=== PATIENT | male | born 1935 | race Caucasian/White ===

== ENCOUNTER 2023-07-07 10:57 | Outpatient (RCR) | payer MEDICARE, SELFPAY | END 2023-07-07 23:59 | disposition home or self-care (01) | LOC: RST 10:57 | PROVIDERS: ATTENDING PHYSICIAN Internal Medicine | DX: I69.328 Other speech and language deficits following cerebral infarction (principal); Z73.6 Limitation of activities due to disability; I69.351 Hemiplegia and hemiparesis following cerebral infarction affecting right dominant side | CPT/HCPCS: 92523; 97110; 97163; 97167 ==

== ENCOUNTER → 2023-07-08 15:57 | Emergency (ER) | payer MEDICARE, SELFPAY ==
[2023-07-08 16:07] VITALS: BP 188/90
[2023-07-08 16:44] LABS: % Basophils 1.2 % (0-2); % Eosinophils 6.2 % (0-6); % Immature Granulocytes 0.2 % (0-0.5); % Lymphocytes 23.3 % (20.5-51.1); % Monocytes 9.1 % (1.7-9.3); Absolute Basophils 0.1 10^3/uL (0-0.2); Absolute Eosinophils 0.6 10^3/uL (0-0.7); Absolute Lymphocytes 2.1 10^3/uL (1.2-3.4); Absolute Monocytes 0.8 10^3/uL (0.1-0.6); Absolute Neutrophils 5.4 10^3/uL (1.4-6.5); Hematocrit 35.8 % (39.0-52.0); Hemoglobin 12.1 g/dL (13.0-18.0); Mean Corp Hgb Conc. 33.8 g/dL (33.0-37.0); Mean Corpuscular Hgb 31.5 pg (27.0-31.0); Mean Corpuscular Volume 93.2 fL (80.0-94.0); Mean Platelet Volume 10.7 fL (7.4-10.4); Nucleated Red Blood Cells % 0 % (-); Platelet Count 210 10^3/uL (130-400); Red Blood Cell Count 3.84 10^6/uL (4.70-6.10); Red Cell Dist. Width 13.1 % (11.5-14.5)
[2023-07-08 16:58] LABS: ALT (SGPT) 10 U/L (0-50); AST (SGOT) 18 U/L (17-59); Albumin 3.6 g/dl (3.5-5.0); Alkaline Phosphatase 82 U/L (38-126); Blood Urea Nitrogen 56 mg/dl (9-20); Calcium 10.8 mg/dl (8.4-10.2); Carbon Dioxide 22 mmol/L (22-30); Chloride 105 mmol/L (98-107); Glucose 84 mg/dl (70-99); Potassium 3.8 mmol/L (3.5-5.1); Sodium 139 mmol/L (135-145); Total Bilirubin 0.7 mg/dl (0.2-1.3); Total Protein 6.1 g/dl (6.3-8.2); eGFR 17.93
[2023-07-08 17:25] VITALS: BP 142/77
--- NOTE | 2023-07-08 17:34 | ED.GENMED ---
History of Present Illness
<Heather Demarco PA-C - Last Filed: 07/08/23 19:53>
General
Chief Complaint: Swelling
Source: patient
Exam Limitations: none
Time Seen by Provider: 07/08/23 17:17
Nursing documentation reviewed up to this point in time: agreed with
Travel History
Have you had any contact with someone who has COVID-19?: No
Do you have any symptoms of coronavirus? Fever > 100 degrees, chills, cough, shortness of breath, sore throat, loss of taste or smell, muscle aches, or headache?: No
History of Present Illness
History of Present Illness:
This is a 88-year-old male with a past medical history of stroke, hypertension, hyperlipidemia who is presenting today to the emergency department with a right neck swelling for the past 9 days. Patient states that his first noticed the
swelling when looking at him, and at that time he had no discomfort. As the days progressed, the area of swelling became larger. He denies any redness, itching to the area. He does report some discomfort when he turns his head. He reported to
primary care provider who thought it might be related to lymphadenopathy and thought it should resolve within a few days likely due to a viral infection. As the swelling progressed and the mass got larger, he reported to his family doctor
petitioner again he was concerned about possible blood clot or vascular issue and they sent him to the emergency department today for ultrasound to rule out. Per his PCPs instructions, he started taking aspirin. He never had anything like this
before. He denies fevers or chills, changes to his vision, chest pain, shortness of breath, abdominal pain. He denies neck pain.
Past History
<Heather Demarco PA-C - Last Filed: 07/08/23 19:53>
Past History
ED Past Medical History: HTN, Hypercholesterolemia and Other (Pilonidal cyst)
ED Past Surgical History: Orthopedic (Right rotator cuff, bilateral carpal tunnel)
Social History
Tobacco: Former smoker
Alcohol: None
Drug: None
Personal:
Living: with family
Review of Systems
<YUSRA Gomez Last Filed: 07/08/23 19:53>
Review of Systems
All Other Systems: ROS reviewed and negative except as documented in HPI and ROS
Phy Exam
<YUSRA Gomez Last Filed: 07/08/23 19:53>
Physical Exam
Physical Exam:
General: Patient appears well is in no acute distress
Skin: There are 2 soft mobile masses on the right side of the patient's neck, with no surrounding erythema.
Cardiac: Regular rate and rhythm
Pulm: Normal respiratory effort, no wheezes rales or rhonchi
Musculoskeletal: Patient has full range of motion of cervical spine is no tenderness to palpation of the cervical spine or paraspinal muscles. Patient has no tenderness palpation of the trapezius muscle. Patient has no tenderness to palpation with
movement of the soft mass.
Scores
<YUSRA Gomez Last Filed: 07/08/23 19:53>
Heart Failure Risk
Heart Failure Risk Score: Not Applicable
Course
<YUSRA Gomez Last Filed: 07/08/23 19:53>
Orders/Labs/Results
Orders:
Orders
07/08/23 16:20
US Arms, Right [US Periph Venous UPPER Ext RT] Urgent
Comment: upper ext, attn jugular
Reason For Exam: neck swelling
07/08/23 16:28
CBC/With Diff [Complete Blood Count/With Diff] Urgent
Comprehensive Metabolic Panel Urgent
Abnormal Lab Results
07/08/23
16:28
RBC 3.84 L 10^6/uL
(4.70-6.10)
Hgb 12.1 L g/dL
(13.0-18.0)
Hct 35.8 L %
(39.0-52.0)
MCH 31.5 H pg
(27.0-31.0)
MPV 10.7 H fL
(7.4-10.4)
Absolute Monos (auto) 0.8 H 10^3/uL
(0.1-0.6)
Eosinophils % 6.2 H %
(0-6)
BUN 56 H mg/dl
(9-20)
Creatinine 3.2 H mg/dL
(0.7-1.3)
Calcium 10.8 H mg/dl
(8.4-10.2)
Total Protein 6.1 L g/dl
(6.3-8.2)
07/08/23 16:28
07/08/23 16:28
Vital Signs
Initial and Last Documented VS:
Initial Vital Signs
Temp Pulse Resp BP Pulse Ox
98 F 58 16 188/90 92
07/08/23 16:07 07/08/23 16:07 07/08/23 16:07 07/08/23 16:07 07/08/23 16:07
Last Documented Vital Signs
Temp Pulse Resp BP Pulse Ox
98 F 59 16 142/77 99
07/08/23 16:07 07/08/23 17:25 07/08/23 17:25 07/08/23 17:25 07/08/23 17:25
Hilarylt;Bernabe Maciel, DO - Last Filed: 07/08/23 18:36>
Orders/Labs/Results
Orders:
Orders
07/08/23 16:20
US Arms, Right [US Periph Venous UPPER Ext RT] Urgent
Comment: upper ext, attn jugular
Reason For Exam: neck swelling
07/08/23 16:28
CBC/With Diff [Complete Blood Count/With Diff] Urgent
Comprehensive Metabolic Panel Urgent
Abnormal Lab Results
07/08/23
16:28
RBC 3.84 L 10^6/uL
(4.70-6.10)
Hgb 12.1 L g/dL
(13.0-18.0)
Hct 35.8 L %
(39.0-52.0)
MCH 31.5 H pg
(27.0-31.0)
MPV 10.7 H fL
(7.4-10.4)
Absolute Monos (auto) 0.8 H 10^3/uL
(0.1-0.6)
Eosinophils % 6.2 H %
(0-6)
BUN 56 H mg/dl
(9-20)
Creatinine 3.2 H mg/dL
(0.7-1.3)
Calcium 10.8 H mg/dl
(8.4-10.2)
Total Protein 6.1 L g/dl
(6.3-8.2)
07/08/23 16:28
07/08/23 16:28
Vital Signs
Initial and Last Documented VS:
Initial Vital Signs
Temp Pulse Resp BP Pulse Ox
98 F 58 16 188/90 92
07/08/23 16:07 07/08/23 16:07 07/08/23 16:07 07/08/23 16:07 07/08/23 16:07
Last Documented Vital Signs
Temp Pulse Resp BP Pulse Ox
98 F 59 16 142/77 99
07/08/23 16:07 07/08/23 17:25 07/08/23 17:25 07/08/23 17:25 07/08/23 17:25
<Heather Demarco PA-C - Last Filed: 07/08/23 19:53>
MDM/Problems Addressed
Differential Diagnosis Includes:
Differentials include: Lymphadenitis, lymphoma, brachial cyst, vascular malformation
MDM/Problems Addressed:
neck swelling
Chronic conditions affecting care: HTN and Other (hyperlipidemia, stroke, BPH)
Acute Exacerbation and/or Progression of Chronic Illness:
n/a
<Heather Demarco PA-C - Last Filed: 07/08/23 19:53>
*Pulse Oximetry
Patient hypoxic: no
*Critical Care Note
Total Time (30-74mins, 75-104mins- exclusive of procedures): Not Applicable
Data Reviewed
Review of Other/Old Records Reveals: Records (Reviewed previous records, reviewed discharge summary from patient's TIA in May 2023)
Prescriptions/Medications Considered But Not Given:
n/a
Further Testing Considered But Not Given:
Considered CT head and neck with IV contrast however patient has stage IV kidney disease and risk of acute renal failure outweighs the urgency of the test
<YUSRA Gomez Last Filed: 07/08/23 19:53>
Patient Management
Escalation/DeEscalation of care consider admission/obs:
This is a 88-year-old male with past medical history of stroke, hypertension, hyperlipidemia who presents today with right neck swelling for the past 9 days. They first noted a small bump earlier in the week and it progressively became larger. His
PCP is concerned about a possible blood clot who sent him to the emergency department to obtain ultrasound. His ultrasound not show any evidence of clot in the right upper extremity but did reveal several hypoechoic masses in the right neck
probably consistent with abnormal lymph nodes. He denies recent weight loss, fevers or chills, and his CBC did not show leukocytosis. We recommended patient to follow-up with their PCP and ENT. We sent patient home with Keflex for possible
lymphangitis.
ED Attending Note
<Heather Demarco PA-C - Last Filed: 07/08/23 19:53>
-
Portions of this chart may have been created with voice recognition software.� Occasional wrong word or��sound alike� substitutions may have occurred due to the inherent limitations of voice recognition software.
<Bernabe Maciel, DO - Last Filed: 07/08/23 18:36>
ED Attending Note
Patient seen and examined by attending physician: Yes
I performed the substantive portion of visit, reviewed & personally made and approve the management plan that is documented in note by myself or VICTOR MANUEL.: Yes
ED Attending Note:
Seen with PA examined independently right neck swelling there is like a 2 cm nontender increasing in size mass above his jugular vein, ultrasound noted no recent URI no fever no weight loss been on aspirin
Will check CT scan
Labs are noted creatinine 3.2 do not believe the risks versus benefits of support CT scanning not sure noncontrast scan would change any thing
Discharge Plan
Departure
Patient Disposition: Home (Routine Discharge)
Date of Disposition: 07/08/23
Time of Disposition: 18:38
Patient with high blood pressure during this ER visit?: Yes
Condition: Good
Discharge Problem:
Neck swelling
Instructions: BLOOD PRESSURE
Prescriptions:
New
cephalexin 500 mg capsule
500 mg PO Q6H 7 Days Qty: 28 0RF
No Action
simvastatin 20 MG tablet
20 mg PO DAILY
tamsulosin 0.4 mg Capsule
0.8 mg PO HS
calcitriol 0.25 mcg Capsule
0.5 mcg PO DAILY
Patient Comments:
05/17/23 prescription is written for take 3 times a week but Dr. Leroy changed patient's medication frequency to take once daily everyday instead.
amlodipine 5 mg tablet
5 mg PO DAILY 30 Days Qty: 30 0RF
aspirin 325 mg Tablet
650 mg PO BID
Activity Restrictions/Additional Instructions:
Please antibiotic called cephalexin to your pharmacy. Please take 1 capsule every 6 hours for 7 days.
Please call your ENT tomorrow morning to make an appointment for follow-up.
Please return to the emergency department should you experience fevers or chills, night sweats, abdominal pain, lightheadedness, dizziness, shortness of breath, chest pain, or other concerning signs or symptoms.
Please follow-up with your primary care provider soon as possible.
Interventions
Interventions:
*Risk Screen - Suicide Last Done: 07/08/23 18:58
*General Assessment Last Done: 07/08/23 17:25
*Neglect/Abuse Screening Last Done: 07/08/23 17:25
ED- Fall Risk Assessment Last Done: 07/08/23 17:25
*ED COVID-19 Vaccine History Last Done: 07/08/23 17:25
*Nursing Disposition Last Done: 07/08/23 18:58
ED- Cardiac Assessment Last Done: 07/08/23 17:25
ED- Pulmonary Assessment Last Done: 07/08/23 17:25
ED-Skin Assessment Last Done: 07/08/23 17:25
== END | disposition home or self-care (01) ==
LOC: EMR 15:57
PROVIDERS: EMERGENCY PHYSICIAN Emergency Medicine
DX: R22.1 Localized swelling, mass and lump, neck (principal); I10 Essential (primary) hypertension; E78.00 Pure hypercholesterolemia, unspecified; Z86.73 Personal history of transient ischemic attack (TIA), and cerebral infarction without residual deficits
CPT/HCPCS: 99282; 80053; 85025; 93971

== ENCOUNTER → 2023-07-15 14:21 | Outpatient (REF) | payer MEDICARE, SELFPAY | LOC: RAD 14:21 | PROVIDERS: ATTENDING PHYSICIAN Physician Assistant | DX: I49.9 Cardiac arrhythmia, unspecified (principal); I88.9 Nonspecific lymphadenitis, unspecified; D64.9 Anemia, unspecified; E83.52 Hypercalcemia | CPT/HCPCS: 71046 ==

== ENCOUNTER → 2023-07-19 12:09 | Outpatient (REF) | payer MEDICARE, SELFPAY ==
[2023-07-19 13:22] LABS: % Basophils 1.3 % (0-2); % Immature Granulocytes 0.2 % (0-0.5); % Monocytes 7.6 % (1.7-9.3); % Neutrophils 66.9 % (42.2-75.2); Absolute Basophils 0.1 10^3/uL (0-0.2); Absolute Eosinophils 0.5 10^3/uL (0-0.7); Absolute Lymphocytes 1.6 10^3/uL (1.2-3.4); Absolute Monocytes 0.7 10^3/uL (0.1-0.6); Absolute Neutrophils 5.8 10^3/uL (1.4-6.5); Hematocrit 36.4 % (39.0-52.0); Hemoglobin 12.5 g/dL (13.0-18.0); Mean Corp Hgb Conc. 34.3 g/dL (33.0-37.0); Mean Corpuscular Hgb 31.9 pg (27.0-31.0); Mean Corpuscular Volume 92.9 fL (80.0-94.0); Nucleated Red Blood Cells % 0 % (-); Platelet Count 199 10^3/uL (130-400); Red Blood Cell Count 3.92 10^6/uL (4.70-6.10); Red Cell Dist. Width 13.2 % (11.5-14.5); White Blood Cell Count 8.7 10^3/uL (4.8-10.8)
[2023-07-19 13:57] LABS: ALT (SGPT) 11 U/L (0-50); AST (SGOT) 20 U/L (17-59); Albumin 3.6 g/dl (3.5-5.0); Alkaline Phosphatase 71 U/L (38-126); Blood Urea Nitrogen 49 mg/dl (9-20); Calcium 10.9 mg/dl (8.4-10.2); Carbon Dioxide 22 mmol/L (22-30); Chloride 103 mmol/L (98-107); Glucose 86 mg/dl (70-99); Potassium 4.2 mmol/L (3.5-5.1); Sodium 137 mmol/L (135-145); Total Bilirubin 0.7 mg/dl (0.2-1.3); Total Protein 6.1 g/dl (6.3-8.2); eGFR 19.37
== END ==
LOC: REG 12:09
PROVIDERS: ATTENDING PHYSICIAN Physician Assistant
DX: I49.9 Cardiac arrhythmia, unspecified (principal); I88.9 Nonspecific lymphadenitis, unspecified; D64.9 Anemia, unspecified; E83.52 Hypercalcemia
CPT/HCPCS: 36415; 80053; 85025

== ENCOUNTER 2023-07-25 15:19 | Outpatient (RCR) | payer MEDICARE, SELFPAY | END 2023-07-25 23:59 | disposition home or self-care (01) | LOC: RST 15:19 | PROVIDERS: ATTENDING PHYSICIAN Internal Medicine | DX: I69.328 Other speech and language deficits following cerebral infarction (principal); I69.318 Other symptoms and signs involving cognitive functions following cerebral infarction; Z73.6 Limitation of activities due to disability | CPT/HCPCS: 92507; 96125; 97110; 97112; 97129; 97130; 97530; 97535 ==

== ENCOUNTER 2023-07-25 23:15 | Inpatient (IN) | payer MEDICARE, SELFPAY ==
[2023-07-25 16:52] VITALS: BP 160/98
[2023-07-25 19:52] VITALS: BMI 22.3
[2023-07-25 19:53] VITALS: BP 158/72
[2023-07-25] MEDS: TYLENOL 650 MG PO (19:59)
[2023-07-25] MEDS: NSS 1000 IV (19:59)
[2023-07-25 20:00] VITALS: BP 147/95
[2023-07-25 20:05] LABS: % Basophils 0.4 % (0-2); % Eosinophils 0.4 % (0-6); % Immature Granulocytes 0.4 % (0-0.5); % Lymphocytes 4.3 % (20.5-51.1); % Neutrophils 89.5 % (42.2-75.2); Absolute Basophils 0.1 10^3/uL (0-0.2); Absolute Eosinophils 0.1 10^3/uL (0-0.7); Absolute Immature Granulocytes 0.1 10^3/uL (0-0.05); Absolute Lymphocytes 0.6 10^3/uL (1.2-3.4); Absolute Monocytes 0.7 10^3/uL (0.1-0.6); Absolute Neutrophils 12.3 10^3/uL (1.4-6.5); Hematocrit 35.2 % (39.0-52.0); Hemoglobin 12.3 g/dL (13.0-18.0); Mean Corp Hgb Conc. 34.9 g/dL (33.0-37.0); Mean Corpuscular Hgb 31.6 pg (27.0-31.0); Mean Corpuscular Volume 90.5 fL (80.0-94.0); Mean Platelet Volume 10.3 fL (7.4-10.4); Nucleated Red Blood Cells % 0 % (-); Platelet Count 175 10^3/uL (130-400); Red Blood Cell Count 3.89 10^6/uL (4.70-6.10); Red Cell Dist. Width 13.2 % (11.5-14.5); Urine Albumin 1+ (Neg - Trace); Urine Bilirubin Negative (Negative); Urine Character Clear (Clear); Urine Color Yellow; Urine Glucose Negative (Negative); Urine Ketone Negative (Negative); Urine Leukocyte 2+ (Negative); Urine Nitrite Negative (Negative); Urine Occult Blood 1+ (Negative); Urine Specific Gravity 1.015 (<1.030); Urine Urobilinogen Negative (Neg - 1+); White Blood Cell Count 13.7 10^3/uL (4.8-10.8)
[2023-07-25 20:17] LABS: APTT 26.5 Sec (23.4-35.0)
[2023-07-25 20:20] LABS: Urine Squamous Cell 0-2 /LPF (Few); Urine White Cell 80-90 /HPF (0-5)
[2023-07-25 20:43] LABS: ALT (SGPT) 13 U/L (0-50); AST (SGOT) 20 U/L (17-59); Albumin 3.8 g/dl (3.5-5.0); Alkaline Phosphatase 63 U/L (38-126); Blood Urea Nitrogen 52 mg/dl (9-20); Calcium 10.9 mg/dl (8.4-10.2); Carbon Dioxide 23 mmol/L (22-30); Chloride 103 mmol/L (98-107); Estimated Creatinine Clearance 16 ml/min; Glucose 106 mg/dl (70-99); Potassium 4.3 mmol/L (3.5-5.1); Sodium 138 mmol/L (135-145); Total Protein 6.3 g/dl (6.3-8.2); eGFR 21.04
[2023-07-25 21:00] VITALS: BP 149/67
--- NOTE | 2023-07-25 21:57 | ED.CVA ---
History of Present Illness
General
Chief Complaint: CVA/TIA Symptoms
Source: patient
Time Seen by Provider: 07/25/23 19:22
Onset of Stroke Symptoms
Onset of symptoms known: No
Time pt last seen normal is known: No
Travel History
Have you had any contact with someone who has COVID-19?: No
Do you have any symptoms of coronavirus? Fever > 100 degrees, chills, cough, shortness of breath, sore throat, loss of taste or smell, muscle aches, or headache?: No
History of Present Illness
History of Present Illness:
88-year-old male brought to the emergency room after speech therapist noted the patient to have more slurring his speech than normal. Patient also seems generally weak. No focality to the weakness but just seems generally weaker than normal. Also
more confused than baseline. Patient found to be febrile here.
Past History
Past History
ED Past Medical History: HTN, Hypercholesterolemia and Other (Pilonidal cyst)
ED Past Surgical History: Orthopedic (Right rotator cuff, bilateral carpal tunnel)
Social History
Tobacco: Former smoker
Alcohol: None
Drug: None
Personal:
Living: with family
Phy Exam
Physical Exam
Physical Exam:
General: Awake, Alert, Oriented X2. Some expressive aphasia. Appears stated age
Vitals: unremarkable
Head: Atraumatic
Eyes: Pupils equal, EOMI
Throat: Airway intact, no exudates, dry mucosa
Neck: Trachea midline
Lungs: Clear and equal b/l
Heart: Regular rate, no murmurs
Abd: Soft, Nontender, No pulsatile mass
Neuro: Grossly nonfocal
Skin: Warm, dry, no rash
Extremities: pulses equal b/l, no edema
Course
Orders/Labs/Results
Orders:
Orders
07/25/23 19:52
CR Chest - 2 Views Urgent
Comment:
Reason For Exam: fever
07/25/23 19:53
0.9% Sodium Chloride 1000 ml [Nss] 1,000 ml IV BOLUS
Acetaminophen [Tylenol] 650 mg PO NOW STA
07/25/23 19:54
Complete Blood Count/With Diff Urgent
Comprehensive Metabolic Panel Urgent
Lactic Acid Q4H
Comment: CANCEL 2nd LACTIC ACID IF 1st LACTIC ACID IS LESS THAN 2
Protime/PTT Urgent
Urinalysis Reflex To Culture Urgent
Date Specimen was Collected: 07/25/23
Time Specimen was Collected: 19:36
Urine Microscopic Reflex Cult Urgent
Blood Culture Q30M
AUBREY Source: Blood/Venous
Specimen Description:
Blood Culture Q30M
AUBREY Source: Blood/Venous
Specimen Description:
Urine Culture Urgent
AUBREY Source: U
Specimen Description:
Date Specimen was Collected: 07/25/23
Time Specimen was Collected: 19:36
07/25/23 21:56
CefTRIAXone [Rocephin] 1,000 mg IV NOW STA
07/25/23 22:43
Admit/Transfer Patient As Directed
Co-Sign Provider:
Level of Care: Inpatient admission
Assign to:: Medical/Surgical
Physician / Group: willy villareal
Diagnosis: UTI
Reason for Hospitalization: UTI
Expected length of stay greater than two midnights?: Yes
ELOS- Estimated Length of Stay in days: 3
I certify the patient meets the requirements for IP care: Yes
Code Status As Directed
Resuscitation Status: Full Code
Abnormal Lab Results
07/25/23
19:54
WBC 13.7 H 10^3/uL
(4.8-10.8)
RBC 3.89 L 10^6/uL
(4.70-6.10)
Hgb 12.3 L g/dL
(13.0-18.0)
Hct 35.2 L %
(39.0-52.0)
MCH 31.6 H pg
(27.0-31.0)
Abs Immat Gran (auto) 0.1 H 10^3/uL
(0-0.05)
Absolute Neuts (auto) 12.3 H 10^3/uL
(1.4-6.5)
Absolute Lymphs (auto) 0.6 L 10^3/uL
(1.2-3.4)
Absolute Monos (auto) 0.7 H 10^3/uL
(0.1-0.6)
Neutrophils % 89.5 H %
(42.2-75.2)
Lymphocytes % 4.3 L %
(20.5-51.1)
BUN 52 H mg/dl
(9-20)
Creatinine 2.8 H mg/dL
(0.7-1.3)
Glucose 106 H mg/dl
(70-99)
Calcium 10.9 H mg/dl
(8.4-10.2)
Ur Occult Blood Reflex 1+ A
(Negative)
Leukocyte Esterase Rfl 2+ A
(Negative)
Urine RBC 7-10 A /HPF
(0-2)
Urine WBC (Reflex) 80-90 A /HPF
(0-5)
Urine Albumin (Reflex) 1+ A
(Neg - Trace)
07/25/23 19:54
07/25/23 19:54
Vital Signs
Initial and Last Documented VS:
Initial Vital Signs
Temp Pulse Resp BP Pulse Ox
98.1 F 77 18 160/98 94
07/25/23 16:52 07/25/23 16:52 07/25/23 16:52 07/25/23 16:52 07/25/23 16:52
Last Documented Vital Signs
Temp Pulse Resp BP Pulse Ox
101.5 F H 70 16 122/67 96
07/25/23 20:02 07/25/23 22:00 07/25/23 22:00 07/25/23 22:00 07/25/23 21:30
MDM/Problems Addressed
Differential Diagnosis Includes:
UTI, dehydration, pneumonia, viral illness
MDM/Problems Addressed:
Urinalysis consistent with urinary tract infection. Patient too weak for discharge. Will hospitalize for IV antibiotics
*Radiology
Radiology exam reviewed: preliminary read by ED provider (Pressure the patient's chest x-ray and see no acute abnormalities) and radiology read reviewed
*Pulse Oximetry
Patient hypoxic: no
*Critical Care Note
Total Time (30-74mins, 75-104mins- exclusive of procedures): Not Applicable
Patient Management
Social determinants of health affecting care: Living situation
Discussion with other providers: Hospitalist
Escalation/DeEscalation of care consider admission/obs:
Discussed possible discharge with the patient's . However he is quite weak and still not at his baseline mental status
ED Attending Note
-
Portions of this chart may have been created with voice recognition software.� Occasional wrong word or��sound alike� substitutions may have occurred due to the inherent limitations of voice recognition software.
Discharge Plan
Departure
Patient Disposition: Admit
Date of Disposition: 07/25/23
Time of Disposition: 21:57
Admit to: Med/Surg
Presentation/result/management discussed w/ accepting MD/DO: Hospitalist
Condition: Fair
Discharge Problem:
Altered mental status, Acute UTI
Interventions
Interventions:
*Risk Screen - Suicide Last Done: 07/25/23 16:52
*General Assessment Last Done: 07/25/23 16:52
*Neglect/Abuse Screening Last Done: 07/25/23 16:52
*ED COVID-19 Vaccine History Last Done: 07/25/23 16:52
ED- Pulmonary Assessment Last Done: 07/25/23 20:02
ED- Neurological Assessment Last Done: 07/25/23 20:02
ED- Cardiac Assessment Last Done: 07/25/23 20:02
ED Swallowing Screen Last Done: 07/25/23 20:09
[2023-07-25 22:00] VITALS: BP 122/67
[2023-07-25] MEDS: ROCEPHIN 1000 MG IV (22:03)
--- NOTE | 2023-07-25 22:23 | HPS.HSE ---
Addendum entered and electronically signed by Scarlet Quiñones DO 07/26/23 01:10:
The patient is seen and examined, and discussed with Monet. I have reviewed her history and physical, assessment, and plan of care as per below.
He is comfortable, NAD, VSS, AF at the time of this examination
Neck-3 large lymph nodes cervical chain on right side that are round, freely movable and tender
CV RRR, no m/r/g
Lungs CTA b/l n o w/r/r
Assessment and POC as per below with addition of :
Neck lymph nodes are being worked up OP by PCP and ENT specialist, unknown etiology- this is a planned biopsy of neck lymph nodes scheduled OP this .
Original Note:
Family Physician
-
Family Physician: Lane Purdy
Chief Complaint
-
fever
History of Present Illness
88-year-old with past medical history for hypertension, hyperlipidemia, pilonidal cyst, CVA, BPH presented to us with fever, chills, shivering shakes. Patient went to physical therapy today to complete the session due to chills and generalized
weakness. Stated urinary urgency and frequency. Patient was dizzy yesterday at [employer]. Denied any hematuria. He was noted confused. Denied headache. Patient denied chest pain or short of breath. Patient denied abdominal pain, nausea,
vomiting, diarrhea. Patient denied dysuria hematuria
WBC elevated at 13.5, positive UA. Initiated on ceftriaxone. Management
Medical History
Past Medical History
Past Medical History: Reports Other
Additional Past Medical History:
CVA
Hypertension
Hyperlipidemia
Bilateral carpal tunnel
Past Surgical History: Reports Other
Additional Past Surgical History:
Rotator cuff repair
Right hip replacement
Bilateral shoulder surgery
Rotator cuff repair
Social History
Tobacco: Former Smoker
Alcohol: Occasional
Drug: None
Personal:
Living: With Family
Family History
Family History: Not pertinent
Allergies / Home Medications
Allergies reflects when Allergies were last updated in [employer].
Home Medications with original date entered in [employer]
Allergy/Medication List:
Allergies
Allergy/AdvReac Type Severity Reaction Status Date / Time
bees Allergy Anaphylaxis Uncoded 07/08/23 16:06
Home Medications
simvastatin 20 mg tablet 20 mg PO DAILY High Cholesterol 03/08/12
calcitriol 0.25 mcg capsule 0.5 mcg PO DAILY Supplement 05/17/23
tamsulosin 0.4 mg capsule 0.8 mg PO Q48H Urinary Issue 05/17/23
amlodipine 5 mg tablet 5 mg PO DAILY 30 days #30 tabs 05/18/23
cephalexin 500 mg capsule 500 mg PO Q6H 7 days #28 caps 07/08/23
aspirin 81 mg chewable tablet 81 mg PO DAILY 07/25/23
Review of Systems
-
Constitutional: Reports No Symptoms, Fever and Chills
EENT: Reports No Symptoms
Respiratory: Reports No Symptoms
Cardiac: Reports No Symptoms
Abdomen/GI: Reports No Symptoms
: Reports Urgency
Musculoskeletal: Reports No Symptoms
Skin: Reports No Symptoms
Neurological: Reports Dizzy and Weakness
Endocrine: Reports No Symptoms
Hematologic/Lymphatic: Reports No Symptoms
Psych: Reports No Symptoms
Physical Exam
Vital Signs
Vital Signs
Temp Pulse Resp BP Pulse Ox
101.5 F H 70 16 122/67 96
07/25/23 20:02 07/25/23 22:00 07/25/23 22:00 07/25/23 22:00 07/25/23 21:30
Physical Exam
General: Well Developed, Well Nourished and No Apparent Distress
HEENT: NormoCephalic, Moist mucous membranes and Atraumatic
Respiratory: Clear
Cardiac: S1/S2 and Regular Rhythm; No Murmur or Rub
GI: Soft, Non Tender, Non Distended and Normal Bowel Sounds; No Organomegaly
Rectal: Deferred by Provider
Musculoskeletal: No Clubbing, No Cyanosis and No Edema
Skin: No Rash
Neuro: AO x 3 and Nonfocal/grossly intact
Psych: Calm
Laboratory Results
-
07/25/23 19:54
07/25/23:
Laboratory Results
PT 14.0 Sec (11.4-14.6) 07/25/23:
INR 1.10 07/25/23:
APTT 26.5 Sec (23.4-35.0) 07/25/23:
Lactic Acid 1.0 mmol/L (0.7-2.0) 07/25/23:
Total Bilirubin 1.0 mg/dl (0.2-1.3) 07/25/23:
AST 20 U/L (17-59) 07/25/23:54
ALT 13 U/L (0-50) 07/25/23:54
Alkaline Phosphatase 63 U/L (38-126) 07/25/23:54
Data Reviewed
-
Diagnostic Radiology: Report Reviewed by me
Lab Data: Labs Reviewed by me
Impression/Plan
-
#metabolic encephalopathy likely from urinary tract infection
-sepsis as evident by wbc 13.7, temp 101.5
-positive UA
-chest x ray with No acute pulmonary process.Marked elevation of the left hemidiaphragm, unchanged.
-blood and urine culture sent from ER
-IV ceftriaxone
-Tylenol as needed for fever
#chronic kidney disease stage 4
-cr 2.8
-continue to trend
-Calcitrol continued
#recent CVA
-Aspirin continued
#Essential Hypertension
-Norvasc continued
Hyperlipidemia
-Continue simvastatin
BPH
-Continue Flomax
#DVT proph: Lovenox
Code Status: Full Code
[2023-07-25 23:00] VITALS: BP 126/54
[2023-07-26] VITALS: BP 122/63
[2023-07-26 00:30] VITALS: BP 163/84; BMI 21.3
[2023-07-26] MEDS: FLOMAX 0.800000000000000044 MG PO (01:04)
--- NOTE | 2023-07-26 01:08 | PTCARENOTE ---
Pt pulled over from bed to stretcher. Pt states he is independent at home. Pt aaox3 and no c/o pain. Pt had some confusion in ED. Placed on bed alarm. Pt oriented to room, call javier within reach, and will continue plan of care.
[2023-07-26 06:00] VITALS: BMI 21.3
[2023-07-26 06:18] LABS: Hematocrit 32.6 % (39.0-52.0); Hemoglobin 10.9 g/dL (13.0-18.0); Mean Corp Hgb Conc. 33.4 g/dL (33.0-37.0); Mean Corpuscular Hgb 31.6 pg (27.0-31.0); Mean Corpuscular Volume 94.5 fL (80.0-94.0); Mean Platelet Volume 11.2 fL (7.4-10.4); Platelet Count 164 10^3/uL (130-400); Red Blood Cell Count 3.45 10^6/uL (4.70-6.10); Red Cell Dist. Width 13.2 % (11.5-14.5); White Blood Cell Count 12.8 10^3/uL (4.8-10.8)
[2023-07-26 06:36] LABS: Blood Urea Nitrogen 48 mg/dl (9-20); Calcium 10.3 mg/dl (8.4-10.2); Carbon Dioxide 25 mmol/L (22-30); Chloride 105 mmol/L (98-107); Estimated Creatinine Clearance 15 ml/min; Glucose 95 mg/dl (70-99); Sodium 139 mmol/L (135-145); eGFR 21.04
[2023-07-26 06:41] LABS: Potassium 3.8 mmol/L (3.5-5.1)
[2023-07-26 07:00] VITALS: BP 152/70
[2023-07-26] MEDS: LIPITOR 10 MG PO (08:24)
[2023-07-26] MEDS: ROCALTROL 0.5 MCG PO (08:24)
[2023-07-26] MEDS: NORVASC 5 MG PO (08:24)
[2023-07-26] MEDS: LOW STRENGTH ASPIRIN 81 MG PO (08:24)
--- NOTE | 2023-07-26 12:32 | W.PN.HOSP.TC ---
Today's Communication/Plan
-
await cultures
cont ABX
Assessment / Plan
Assessment / Plan
Pt is an 88 year old male
metabolic encephalopathy likely from sepsis from urinary tract infection--resolved--UA positive--await cultures--cont rocephin
chronic kidney disease stage 4--cr 2.8 baseline--continue to trend--Calcitrol continued
recent CVA--Aspirin continued--PT/OT/speech
Essential Hypertension--Norvasc continued
Hyperlipidemia--Continue simvastatin
BPH--Continue Flomax
DVT proph: Lovenox
Code Status: Full Code
fell today--consult PT/OT--does not appear to be hurt
Anticipated Discharge: 24 - 48 hours
Subjective/Interval History
-
Date of Service: July 26, 2023
pt fell earlier today--was not injured
Objective Data
-
Labs:
Laboratory Results
07/26/23
05:31
WBC 12.8 H
Hgb 10.9 L
Hct 32.6 L
Plt Count 164
Sodium 139
Potassium 3.8
Chloride 105
Carbon Dioxide 25
BUN 48 H
Creatinine 2.8 H
Glucose 95
Calcium 10.3 H
Vital Signs:
max temp for 24 hours
07/25/23
20:02
Temp 101.5 F H
Vital Signs
Temp Pulse Resp BP Pulse Ox
98.9 F 67 16 152/70 98
07/26/23 07:00 07/26/23 08:24 07/26/23 07:00 07/26/23 08:24 07/26/23 09:27
I&O
07/25/23 07/26/23 07/27/23
06:59 06:59 06:59
Intake Total 120 / 120
Output Total 625 / 625
Balance -505 / -505
Review of Systems
-
All other systems: Reviewed and negative
Physical Exam
-
General: Other (elderly frail male in NAD)
HEENT: Normocephalic and Atraumatic
Respiratory: Clear to Auscultation; Negative Wheezes or Rhonchi
Cardiac: Regular Rhythm and S1/S2; Negative Murmur
GI: Soft, Nontender, Nondistended and Normal Bowel Sounds
Rectal: Other (sacral area with small opening at top of buttock crease )
Musculoskeletal: No Clubbing, No Cyanosis and No Edema
Skin: Warm
Neuro: Awake
Psych: Calm
--- NOTE | 2023-07-26 14:10 | PTOTSP ---
Dysphagia Evaluation
Patient presents with mild oral stage differences (i.e., prolonged chewing in setting of loose dentures, reduced bolus cohesion, mildly reduced oral clearance improved with a liquid wash) and no signs/symptoms concerning for pharyngeal dysphagia or
aspiration.
He is known to department from outpatient therapy where he is followed for a mild cognitive linguistic impairment. Repeat cognitive evaluation is not appropriate at this time as he is admitted with concern for UTI with TME, which is an acute
reversible process which may impact cognition. He would benefit from continuation of cognitive therapy after medical management of acute factors.
Recommend:
1. Regular, Thin Liquids
2. Medications as best tolerated
3. Strategies: slow rate, alternate solids and liquids to assist with oral clearance
4. Speech consult for cognitive linguistic therapy after D/C from acute care.
[2023-07-26 15:00] VITALS: BP 142/83
[2023-07-26] MEDS: LOVENOX 30 MG SC (17:36)
[2023-07-26] MEDS: STERILE WATER FOR INJECTION 10 ML IV (23:00)
[2023-07-26] MEDS: ROCEPHIN 1000 MG IV (23:00)
[2023-07-26 23:33] VITALS: BP 168/81
[2023-07-27 06:00] VITALS: BMI 21.3
[2023-07-27 06:25] LABS: Hematocrit 35.4 % (39.0-52.0); Hemoglobin 11.7 g/dL (13.0-18.0); Mean Corp Hgb Conc. 33.1 g/dL (33.0-37.0); Mean Corpuscular Hgb 31.4 pg (27.0-31.0); Mean Corpuscular Volume 94.9 fL (80.0-94.0); Mean Platelet Volume 11.2 fL (7.4-10.4); Platelet Count 167 10^3/uL (130-400); Red Blood Cell Count 3.73 10^6/uL (4.70-6.10); Red Cell Dist. Width 13.1 % (11.5-14.5); White Blood Cell Count 11.1 10^3/uL (4.8-10.8)
[2023-07-27 06:53] LABS: Blood Urea Nitrogen 45 mg/dl (9-20); Calcium 10.7 mg/dl (8.4-10.2); Carbon Dioxide 26 mmol/L (22-30); Chloride 104 mmol/L (98-107); Estimated Creatinine Clearance 14 ml/min; Glucose 102 mg/dl (70-99); Potassium 3.4 mmol/L (3.5-5.1); Sodium 140 mmol/L (135-145); eGFR 20.17
[2023-07-27 07:00] VITALS: BP 158/88
[2023-07-27] MEDS: LOW STRENGTH ASPIRIN 81 MG PO (08:31)
[2023-07-27] MEDS: LIPITOR 10 MG PO (08:31)
[2023-07-27] MEDS: NORVASC 5 MG PO (08:31)
[2023-07-27] MEDS: ROCALTROL 0.5 MCG PO (08:33)
--- NOTE | 2023-07-27 09:18 | WOUNDNOTE ---
[facility] RN note: Patient admitted with UTI. Patient lives with his .
See H&P for complete history.
PMH: HTN, pilonidal cyst, CVA, BPH, R hip replacement, CKD4.
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 Scant serous drainage.
Appetite: good. Patient very thin.
Pressure redistribution devices in place: [employer] Accumax. Patient ambulated to bathroom with PT/OT with walker. He can turn self in bed. He has his foam U shaped cut out coccyx relief chair cushion in his chair.
Plan: Silicone foam dressing changed on coccyx. Air chair cushion placed in patient's bed. Instructed patient pressure relief measures. Suggested patient to follow up with [facility].
Will confirm orders with hospitalist and updated RN Aurelia nurse.
Care plan to be updated and will follow as needed.
Note to case management of equipment requested for discharge: VN if goes home.
Recommend follow up at wound care center upon discharge.
[2023-07-27 09:30] VITALS: BP 158/80; PULSE 71; O2SAT 98
[2023-07-27 09:35] VITALS: BP 158/80; PULSE 73; O2SAT 98
--- NOTE | 2023-07-27 11:19 | CM ---
Patient seen at bedside with family friend also present. Patient states that he lives with his in a 2 story home. Patient has a walker at home but did not previously use it. Patient agreed to use it as it 'helps with balance' at discharge.
Patient PCP is Dr. Purdy and he uses the [facility] in [place] for pharmacy needs. Patient had had [facility] in the past and also had been going to the outpatient therapy in the recent past. Patient open to physician recommendations at time of discharge.
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 CM will continue to follow for discharge planning needs.
PLan; home with VN vs home with no needs.
--- NOTE | 2023-07-27 14:17 | W.PN.HOSP.TC ---
Today's Communication/Plan
-
stop rocephin
start levaquin
d/c pt at 11 AM tomorrow then he can go to IR at 12 PM for biopsy
Assessment / Plan
Assessment / Plan
Pt is an 88 year old male
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
chronic kidney disease stage 4--cr 2.8 baseline--continue to trend--Calcitrol continued
recent CVA--Aspirin continued--PT/OT/speech
Essential Hypertension--Norvasc continued
Hyperlipidemia--Continue simvastatin
BPH--Continue Flomax
DVT proph: Lovenox
Code Status: Full Code
fell today--consult PT/OT--does not appear to be hurt--home health rec at d/c
neck nodules -- plan for d/c tomorrow at 11 AM then he can go to IR at 12 PM for his biopsy
Anticipated Discharge: Within 24 hours
Subjective/Interval History
-
Date of Service: July 27, 2023
pt seems confused vs hard of hearing
Objective Data
-
Labs:
Laboratory Results
07/27/23
05:17
WBC 11.1 H
Hgb 11.7 L
Hct 35.4 L
Plt Count 167
Sodium 140
Potassium 3.4 L
Chloride 104
Carbon Dioxide 26
BUN 45 H
Creatinine 2.9 H
Glucose 102 H
Calcium 10.7 H
Vital Signs:
max temp for 24 hours
07/26/23
15:00
Temp 98.9 F
Vital Signs
Temp Pulse Resp BP Pulse Ox
98.5 F 94 17 158/88 94
07/27/23 07:00 07/27/23 07:00 07/27/23 07:00 07/27/23 08:31 07/27/23 07:00
I&O
07/26/23 07/27/23 07/28/23
06:59 06:59 06:59
Intake Total 120 / 120 840 / 840
Output Total 625 / 625 1025 / 1025
Balance -505 / -505 -185 / -185
Review of Systems
-
All other systems: Reviewed and negative
Physical Exam
-
General: Well Developed, Well Nourished and No Apparent Distress
HEENT: Normocephalic and Atraumatic
Respiratory: Clear to Auscultation; Negative Wheezes or Rhonchi
Cardiac: Regular Rhythm and S1/S2; Negative Murmur
GI: Soft, Nontender, Nondistended and Normal Bowel Sounds
Musculoskeletal: No Clubbing, No Cyanosis and No Edema
Neuro: Awake
Psych: Calm
[2023-07-27] MEDS: LOVENOX 30 MG SC (17:09)
[2023-07-27] MEDS: LEVAQUIN 250 MG PO (17:09)
[2023-07-27 23:00] VITALS: BP 166/80
[2023-07-27] MEDS: FLOMAX 0.800000000000000044 MG PO (23:51)
[2023-07-28 06:33] LABS: Hematocrit 30.9 % (39.0-52.0); Hemoglobin 10.5 g/dL (13.0-18.0); Mean Corpuscular Volume 91.2 fL (80.0-94.0); Mean Platelet Volume 11.4 fL (7.4-10.4); Platelet Count 153 10^3/uL (130-400); Red Blood Cell Count 3.39 10^6/uL (4.70-6.10); Red Cell Dist. Width 13.1 % (11.5-14.5); White Blood Cell Count 7.2 10^3/uL (4.8-10.8)
[2023-07-28 06:52] LABS: Blood Urea Nitrogen 40 mg/dl (9-20); Calcium 10.1 mg/dl (8.4-10.2); Carbon Dioxide 25 mmol/L (22-30); Chloride 108 mmol/L (98-107); Estimated Creatinine Clearance 15 ml/min; Glucose 99 mg/dl (70-99); Potassium 3.6 mmol/L (3.5-5.1); Sodium 136 mmol/L (135-145); eGFR 21.04
[2023-07-28 07:00] VITALS: BP 170/88
[2023-07-28] MEDS: LIPITOR 10 MG PO (07:56)
[2023-07-28] MEDS: LOW STRENGTH ASPIRIN 81 MG PO (07:56)
[2023-07-28] MEDS: NORVASC 5 MG PO (07:56)
--- NOTE | 2023-07-28 08:37 | CM ---
Addendum entered by Alayna Kay 07/28/23 09:44:
Patient reviewed options with CM and information provided about start of care for [facility]; social work lecturer requested. Patient sister coming to provide support to patient . CM updated [facility] regarding request for early start of care.
Original Note:
Patient seen at bedside with physician. Patient given IMM and signed form placed on chart. [facility] updated that patient is for discharge home. CM will continue to follow for discharge planning need.
Plan; home with [facility] to follow
--- NOTE | 2023-07-28 09:01 | W.PN.HOSP.TC ---
Today's Communication/Plan
-
d/c
Assessment / Plan
Assessment / Plan
Pt is an 88 year old male
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
chronic kidney disease stage 4--cr 2.8 baseline--continue to trend--Calcitrol continued
recent CVA--Aspirin continued--PT/OT/speech
Essential Hypertension--Norvasc continued
Hyperlipidemia--Continue simvastatin
BPH--Continue Flomax
DVT proph: Lovenox
Code Status: Full Code
fell today--consult PT/OT--does not appear to be hurt--home health rec at d/c
neck nodules -- plan for d/c at 11 AM then he can go to IR at 12 PM for his biopsy
Anticipated Discharge: Today
Subjective/Interval History
-
Date of Service: July 28, 2023
pt ready for d/c
Objective Data
-
Labs:
Laboratory Results
07/28/23
05:12
WBC 7.2
Hgb 10.5 L
Hct 30.9 L
Plt Count 153
Sodium 136
Potassium 3.6
Chloride 108 H
Carbon Dioxide 25
BUN 40 H
Creatinine 2.8 H
Glucose 99
Calcium 10.1
Vital Signs:
max temp for 24 hours
07/27/23
23:00
Temp 98.9 F
Vital Signs
Temp Pulse Resp BP Pulse Ox
98.0 F 57 16 170/88 97
07/28/23 07:00 07/28/23 07:00 07/28/23 07:00 07/28/23 07:56 07/28/23 07:00
I&O
07/27/23 07/28/23 07/29/23
06:59 06:59 06:59
Intake Total 840 / 840 780 / 780
Output Total 1025 / 1025 630 / 630
Balance -185 / -185 150 / 150
Review of Systems
-
All other systems: Reviewed and negative
Physical Exam
-
General: Well Developed, Well Nourished and No Apparent Distress
HEENT: Normocephalic and Atraumatic; Negative Oxygen
Respiratory: Rhonchi (anteriorly)
Cardiac: Regular Rhythm and S1/S2; Negative Murmur
GI: Soft, Nontender, Nondistended and Normal Bowel Sounds
Musculoskeletal: No Clubbing, No Cyanosis and No Edema
Neuro: Awake
Psych: Calm
--- NOTE | 2023-07-28 11:45 | PTCARENOTE ---
Completed wound care with patient's present and educated her on wound care instructions. We discussed pressure prevention measures at home and she verbalized understanding.
--- NOTE | 2023-07-28 17:46 | W.DCSUMMARY ---
Discharge Summary
Discharge Data
Date of Admission: 07/25/23
Date of Discharge: 07/28/23
-
Pending Results: No
Hospital Course
Primary care physician : Lane Purdy
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
Chronic Discharge diagnosis : Chronic kidney disease stage IV, recent stroke, essential hypertension, hyperlipidemia, benign prostatic hyperplasia, neck nodules
Hospital Course : Patient was an 88-year-old male with a history of essential hypertension, hyperlipidemia, previous pilonidal cyst, and recent stroke who presented with fever, chills, and shivering. Patient went to physical therapy but was unable
to complete the session due to chills and generalized weakness. He also stated he had urinary urgency and frequency. Patient denied any hematuria. He was noted to be confused but denied a headache. He was brought in for evaluation and treatment.
White count was found to be 13.5 with a positive urinalysis and the patient was admitted.
Problem #1: Metabolic encephalopathy from sepsis due to Citrobacter amalonaticus urinary tract infection. Patient was started on IV Rocephin. Cultures were drawn and showed Citrobacter. Sensitivities were reviewed and patient will have Levaquin
250 mg every 48 hours x 3 doses. First dose was July 27, next dose July 29, last dose July 31. White count on admission was 13.7 down to 7.2 at the day of discharge.
Problem #2: All other medical issues. These include Chronic kidney disease stage IV, recent stroke, essential hypertension, hyperlipidemia, benign prostatic hyperplasia, neck nodules. These medical issues were stable during his hospitalization.
Medications were continued as able. In regards to his neck nodules, he was discharged prior to his appointment at 12 noon and interventional radiology for the biopsy. He did make that appointment. Biopsy results are pending.
Patient is stable for discharge home at this time. If there are any questions regarding this dictation or his hospital stay, please not hesitate to call. Our office number is [phone].
Discharge Plan
-
Patient Disposition: Home with Home Care
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
hyperplasia, neck nodules
Condition: Good
Diet: As tolerated and Regular
Activity: As tolerated
Driving Restrictions: As prior to admission
Bathing Restrictions: None
Other Services: VN, PT and OT
Activity Restrictions/Additional Instructions:
Wound Care Instructions
Coccyx ulcers-clean with saline or soap and water, honey gel, silicone foam or gauze pad, change daily and as needed for soilage.
Pressure redistributing chair cushion (i.e. Air chair cushion or a 'U' shaped coccyx cut out high density foam cushion).
Follow up at wound care center call for an appointment.
Referrals:
Lane Purdy MD [Family Provider] - in less than 1 week
Prescriptions:
New
levofloxacin 250 mg Tablet
250 mg PO Q48H Qty: 2 0RF
Rx Instructions:
Next doses are 07/29/2023, and 07/31/2023 then stop
Continued
simvastatin 20 MG tablet
20 mg PO DAILY
tamsulosin 0.4 mg Capsule
0.8 mg PO Q48H
calcitriol 0.25 mcg Capsule
0.5 mcg PO QMWF
amlodipine 5 mg tablet
5 mg PO DAILY 30 Days Qty: 30 0RF
aspirin 81 mg Tablet,Chewable
81 mg PO DAILY
Discharge Orders:
Discharge Patient (As Directed); Ordered 07/28/23
Ordered By: Alicia Heredia
Discharge Date and Time
Discharge Date/Time: 07/28/23 12:27
== END 2023-07-28 12:27 | disposition home health service (06) | DRG 871 ==
LOC: 3 WEST ACU 23:15
PROVIDERS: Emergency Medicine; Registered Nurse; ADMITTING PHYSICIAN Internal Medicine; ATTENDING PHYSICIAN Internal Medicine; EMERGENCY PHYSICIAN Emergency Medicine; FAMILY PHYSICIAN Internal Medicine
DX: A41.9 Sepsis, unspecified organism (principal); G93.41 Metabolic encephalopathy; N39.0 Urinary tract infection, site not specified; N18.4 Chronic kidney disease, stage 4 (severe); Z87.891 Personal history of nicotine dependence; I12.9 Hypertensive chronic kidney disease with stage 1 through stage 4 chronic kidney disease, or unspecified chronic kidney disease; Z86.73 Personal history of transient ischemic attack (TIA), and cerebral infarction without residual deficits; N40.0 Benign prostatic hyperplasia without lower urinary tract symptoms; E78.00 Pure hypercholesterolemia, unspecified
CPT/HCPCS: 71046; 80048; 80053; 81003; 81015; 83605; 85025; 85027; 85610; 85730; 87040; 87077; 87086; 87186; 92610; 93005; 96361; 96374; 97110; 97112; 97129; 97130; 97162; 97167; 97530; 99285

== ENCOUNTER → 2023-07-28 12:35 | Outpatient (REF) | payer MEDICARE, SELFPAY ==
[2023-07-28 12:53] VITALS: BP 157/115; BP_SYST 71
[2023-07-28 12:57] VITALS: BP 158/99
[2023-07-28 13:58] VITALS: BP 149/89
== END ==
LOC: RADI 12:35
PROVIDERS: ATTENDING PHYSICIAN Otolaryngology
DX: R22.1 Localized swelling, mass and lump, neck (principal)
CPT/HCPCS: 88172; 88173; 88305; 20206; 76942; 88333

== ENCOUNTER → 2023-08-05 12:42 | Outpatient (REF) | payer MEDICARE, SELFPAY | LOC: WOUND 12:42 | PROVIDERS: ATTENDING PHYSICIAN Surgery; FAMILY PHYSICIAN Internal Medicine | DX: S31.000A Unspecified open wound of lower back and pelvis without penetration into retroperitoneum, initial encounter (principal); L05.91 Pilonidal cyst without abscess; N18.4 Chronic kidney disease, stage 4 (severe); I10 Essential (primary) hypertension; G60.9 Hereditary and idiopathic neuropathy, unspecified; X58.XXXA Exposure to other specified factors, initial encounter | CPT/HCPCS: 11042; 99203 ==

== ENCOUNTER → 2023-08-12 14:12 | Outpatient (REF) | payer MEDICARE, SELFPAY | LOC: WOUND 14:12 | PROVIDERS: ATTENDING PHYSICIAN Surgery; FAMILY PHYSICIAN Internal Medicine | DX: S31.000A Unspecified open wound of lower back and pelvis without penetration into retroperitoneum, initial encounter (principal); L05.91 Pilonidal cyst without abscess; N18.4 Chronic kidney disease, stage 4 (severe); G60.9 Hereditary and idiopathic neuropathy, unspecified; X58.XXXA Exposure to other specified factors, initial encounter; I12.9 Hypertensive chronic kidney disease with stage 1 through stage 4 chronic kidney disease, or unspecified chronic kidney disease | CPT/HCPCS: 11042 ==

== ENCOUNTER 2023-08-14 12:58 | Inpatient (IN) | payer MEDICARE, SELFPAY ==
[2023-08-14 10:57] VITALS: BP 154/117
[2023-08-14 11:00] LABS: Glucose - Point of Care 166 mg/dl (70-99)
--- NOTE | 2023-08-14 11:05 | ED.CVA ---
History of Present Illness
General
Chief Complaint: CVA/TIA Symptoms
Source: patient and spouse
Exam Limitations: none
Time Seen by Provider: 08/14/23 11:02
Nursing documentation reviewed up to this point in time: agreed with
Onset of Stroke Symptoms
Onset of symptoms known: Yes
Date of onset of symptoms: 08/14/23
Travel History
Have you had any contact with someone who has COVID-19?: No
Do you have any symptoms of coronavirus? Fever > 100 degrees, chills, cough, shortness of breath, sore throat, loss of taste or smell, muscle aches, or headache?: No
History of Present Illness
History of Present Illness:
Patient with history of CVA, currently on 81 mg aspirin daily, presents to ED secondary to sudden onset of slurred speech along with inability to verbalize, while speaking with his during breakfast this morning, around 9:50 AM. Since then,
symptoms have improved. Patient denies headache. Denies difficulty swallowing. Denies loss of sensation or weakness. Denies difficulty with ambulation. Denies nausea or vomiting. Denies blurred vision. Denies dizziness. Denies recent
illness. Denies recent change in medications or diet. Patient was initially on Plavix along with aspirin, which now has been discontinued. Per spouse, patient has taken his 81 mg aspirin this morning.
Past History
Past History
ED Past Medical History: HTN, Hypercholesterolemia and Other (Pilonidal cyst)
ED Past Surgical History: Orthopedic (Right rotator cuff, bilateral carpal tunnel)
Social History
Tobacco: Former smoker
Alcohol: None
Drug: None
Personal:
Living: with family
Review of Systems
Review of Systems
Allergies reviewed?: Yes
All Other Systems: ROS reviewed and negative except as documented in HPI and ROS
Constitutional: Reports no symptoms
EENT: Reports no symptoms
Respiratory: Reports no symptoms
Cardiac: Reports no symptoms
ABD/GI: Reports no symptoms
: Reports no symptoms
Musculoskeletal: Reports no symptoms
Skin: Reports no symptoms
Neurological: Reports other (Slurred speech, expressive aphasia.)
Phy Exam
Physical Exam
Physical Exam:
Physical Exam
General: no apparent distress, not acutely ill. afebrile
Head: nc/at. eomi
Neck: supple. no meningeal signs.
Heart: s1/s2 regular rate and rhythm, no murmur. equal radial pulses.
Lungs: no acute respiratory distress. clear bilaterally
Abdomen: normal bowel sounds. not tender.
Neuro: alert and oriented. no focal neurological deficits. normal speech. no facial droop.
Skin: no rash
Psychiatric: well kept. interactive and cooperative
Extremities: no edema. no calf tenderness.
Course
Orders/Labs/Results
Orders:
Orders
08/14/23 11:[address] [CT Head W/o Iv Contrast] Urgent
Comment:
Reason For Exam: change in mental status
08/14/23 11:02
Cardiac Monitoring- Treatment ONCE
EKG- Treatment ONCE
08/14/23 11:04
CT Head/Neck Ang STROKE ALERT Urgent
Comment:
Reason For Exam: slurred speech/expressive aphasia
08/14/23 11:05
NEUROLOGY CONSULT Urgent
Consulting Provider: Enrico Myers
Was physician already notified: Yes
Reason for consult: slurred speech
08/14/23 11:20
MR Brain Without Contrast Routine
Comment:
Reason For Exam: Aphasia and speech difficulty TIA vs left MCA CVA
Recent pill cam endoscopy?: No
NIH Stroke Scale As Directed
Neurological Checks As Directed
Frequency: Per unit guidelines
08/14/23 11:21
Speech Therapy Eval & Treat Routine
Treatment: dyarthria aphasia TIA vs stroke
08/14/23 11:22
Occupational Therapy Consult [Ot Eval And Treat] Routine
Physical Therapy Consult [Pt Eval And Treat] Routine
Activity Level: Out of Bed-Early Mobility
08/14/23 11:25
Basic Metabolic Panel Urgent
Complete Blood Count/No Diff Urgent
PTT Urgent
Prothrombin Time Urgent
08/14/23 11:36
Aspirin 325 mg PO NOW STA
Clopidogrel Bisulfate [Plavix] 300 mg PO NOW STA
08/14/23 12:42
Admit/Transfer Patient As Directed
Co-Sign Provider:
Level of Care: Inpatient admission
Assign to:: Telemetry
Physician / Group: hospitalist
Diagnosis: CVA/TIA
Reason for Telemetry: CVA/TIA
Date to Stop Telemetry: 08/17/23
Time to Stop Telemetry: 11:00
Reason for Hospitalization: recurrent CVA
Expected length of stay greater than two midnights?: Yes
ELOS- Estimated Length of Stay in days: 2
I certify the patient meets the requirements for IP care: Yes
08/14/23 12:44
Code Status As Directed
Resuscitation Status: Full Code
08/14/23 14:27
Acetaminophen [Tylenol] 650 mg PO Q4HPRN PRN
Hydrochlorothiazide [Oretic] 12.5 mg PO Q48H
08/14/23 14:27
Case Management Consult ONCE
Case Management Consult: Discharge Planning
Comment: stroke/tia
DIETARY CONSULT Routine
Reason for Consult: stroke/TIA
Bench Worker Binding Urgent
Activity As Directed
Activity Level: With Assistance
NIH Stroke Scale As Directed
Directions: Per protocol
Comment: every shift and with any change in condition or mental status
Neurological Checks As Directed
Frequency: q4h
Additional Instructions:: q4h x 24h upon admission to the floor, then qshift & with any change in condition
and mental status
Patient Education As Directed
Type: Stroke education packet
Comment: provide to patient and family
Pneumatic Compression Sleeves As Directed
Type: Knee high
Vital Signs As Directed
Frequency: Per unit guidelines
Ot Eval And Treat Routine
Pt Eval And Treat Routine
Activity Level: With Assistance
DX Deep Vein Thrombosis Video Routine
08/14/23 18:00
Atorvastatin [Lipitor] 10 mg PO QPM
08/14/23 20:00
Heparin 5,000 units SC Q12
08/14/23 22:00
Tamsulosin [Flomax] 0.8 mg PO HS
08/15/23
Echo 2D MMode Color/Doppler Routine
Reason for Study: Thrombotic source for stroke-like sxs
08/15/23 05:07
Basic Metabolic Panel IN AM
Cardiovascular Evaluation IN AM
Glycohemoglobin (HgbA1c) IN AM
08/15/23 08:00
Amlodipine [Norvasc] 5 mg PO DAILY
Aspirin Low Dose EC [Aspir Low (Enteric Coated)] 81 mg PO DAILY
Calcitriol [Rocaltrol] 0.5 mcg PO DAILY
Clopidogrel Bisulfate [Plavix] 75 mg PO DAILY
Ferrous Sulfate [Feosol] 325 mg PO DAILY
08/17/23 11:00
DC Protocol for Telemetry ONCE
Abnormal Lab Results
08/14/23 08/14/23
10:58 11:25
RBC 3.68 L 10^6/uL
(4.70-6.10)
Hgb 11.4 L g/dL
(13.0-18.0)
Hct 33.0 L %
(39.0-52.0)
MPV 11.2 H fL
(7.4-10.4)
BUN 47 H mg/dl
(9-20)
Creatinine 2.8 H mg/dL
(0.7-1.3)
Glucose 168 H mg/dl
(70-99)
Calcium 10.3 H mg/dl
(8.4-10.2)
POC Glucose 166 H mg/dl
(70-99)
08/14/23 11:25
08/14/23 11:25
Vital Signs
Initial and Last Documented VS:
Initial Vital Signs
Pulse Resp BP Pulse Ox
79 16 154/117 99
08/14/23 10:57 08/14/23 10:57 08/14/23 10:57 08/14/23 10:57
Last Documented Vital Signs
Temp Pulse Resp BP Pulse Ox
98.2 F 72 18 159/73 95
08/15/23 14:52 08/15/23 14:52 08/15/23 14:52 08/15/23 14:52 08/15/23 14:52
MDM/Problems Addressed
MDM/Problems Addressed:
Stroke alert activated.
Pt being evaluated by (neurology) - not a candidate for tPA, due to resolution of symptoms. NIH stroke score : 0
Pt will be admitted for further evaluation and treatment.
*Critical Care Note
Total Time (30-74mins, 75-104mins- exclusive of procedures): Not Applicable
ED Attending Note
-
Portions of this chart may have been created with voice recognition software.� Occasional wrong word or��sound alike� substitutions may have occurred due to the inherent limitations of voice recognition software.
Discharge Plan
Departure
Patient Disposition: Admit
Date of Disposition: 08/14/23
Time of Disposition: 11:31
Admit to: Telemetry
Presentation/result/management discussed w/ accepting MD/DO: Hospitalist
Discharge Problem:
Brain TIA
Interventions
Interventions:
*Risk Screen - Suicide Last Done: 08/14/23 14:15
*General Assessment Last Done: 08/14/23 11:02
*Neglect/Abuse Screening Last Done: 08/14/23 11:02
ED- Fall Risk Assessment Last Done: 08/14/23 12:05
*ED COVID-19 Vaccine History Last Done: 08/14/23 11:02
*Nursing Disposition Last Done: 08/14/23 14:49
ED- Pulmonary Assessment Last Done: 08/14/23 12:02
ED- Neurological Assessment Last Done: 08/14/23 14:26
ED- Cardiac Assessment Last Done: 08/14/23 12:02
ED Swallowing Screen Last Done: 08/14/23 12:05
Discharge Date and Time
Discharge Date/Time: 08/14/23 14:15
--- NOTE | 2023-08-14 11:15 | CON.NEURO4 ---
Consultation - Neurology 4
-
CONSULTING PHYSICIAN: Marquita Myers
REFERRING PHYSICIAN: ER
DICTATED BY: Marquita Myers
DATE/TIME OF REQUEST: 08/14/23
DATE/TIME OF CONSULTATION: 08/14/23
Reason for Consultation: Stroke alert, speech difficulty sudden onset
History of Present Illness:
Patient is an 88 year old right handed man with history of previous left basal ganglia ischemic stroke and hypertension presenting to hospital as stroke alert for symptoms of expressive aphasia starting around 940 AM this morning. Patient has been
in his normal state of health prior to this and is compliant with aspirin 81 mg daily, no recent head or neck trauma or headache. Speech abnormality did greatly improve in the ER. No recent bleeding issues. He takes medications for hypertension
and hyperlipidemia and is compliant with these. No recent illnesses. No chest pain, palpitations, dyspnea, or syncope. He made good recovery from the previous stroke with no residual deficits.
Past Medical History: Left basal ganglia ischemic stroke May 2023, hypertension, hyperlipidemia, CKD
Surgical History: Right hip replacement, bilateral shoulder surgery
Family History: Non-contributory
Social History: and lives with his
Allergies: No known drug allergies
Review of Symptoms:
Patient denies any fever, headache, chest pain, shortness of breath, GI or symptoms.
Physical Exam:
Elderly man no distress, no head or neck trauma, oropharynx clear, eyes clear, neck no masses and full range of motion, heart rate regular no murmur appreciated, breathing unlabored, abdomen soft non tender, no lower extremity edema or rash
Neurologic Examination:
The patient is awake, alert and oriented x 3. He is able to follow commands and answer questions appropriately. Rare and minor word substitution, good naming and repetition and comprehension. On cranial nerve assessment, pupils are 3 mm
bilateral, round and reactive to light and accommodation. Visual araiza are full. Extraocular movements are intact. Facial sensations are intact and bilaterally symmetrical, there is no facial asymmetry. Hearing is intact bilaterally to normal
conversation volume. Tongue palate and uvula are midline. Sternocleidomastoid strengths are full bilaterally. Motor strengths are 5/5 bilateral upper and lower extremities on medical research [place] scale. There is no drift or involuntary movement
noted. Deep tendon reflexes are 2+ bilateral upper and lower extremities and Babinski is absent bilaterally. Sensations of pain, touch, temperature and vibration are intact and bilaterally symmetrical. There was no extinction noted on double
simultaneous stimulation. Coordination is intact by finger to nose bilaterally.
Neuro Imaging:
CT head non contrast chronic left basal ganglia infarction, no acute infarct seen, no hemorrhage, no masses, no edema, no hydrocephalus, ASPECTS of 10 no early ischemic changes seen. Global age appropriate atrophy seen.
CTA head and neck:No large vessel occlusion, no significant carotid or vertebral stenosis.
Impressions
1. TIA versus minor stroke of the left hemisphere. No significant large vessel atherosclerosis on CTA head and neck. Cardioembolic stroke due to occult atrial fibrillation needs to kept in mind. Small vessel disease mechanism also possible.
2. Hypertension
3. Hyperlipidemia
4. Previous left basal ganglia ischemic stroke.
Patient has the following risk factors for their symptoms: Previous stroke, age, hypertension
IV Tenecteplase/IAT candidacy: Minor and improving symptoms of speech difficulty, risks of TNK outweigh benefits, no role for IAT with no LVO
Recommendations:
1. Give aspirin 325 mg and Clopidogrel 300 mg once now
2. Start DAPT therapy thereafter
3. Check TTE and cardiac telemetry
4. Check MRI of the brain without contrast
5. Speech, physical, occupational therapy
6. Strongly recommend outpatient cardiac monitoring with consideration for LINQ, has mildly dilated left atrium on previous TTE and 2 stroke/TIA events now
7. Permissive hypertension goal less than 220/120 until tomorrow morning at 9 AM
8. Goal normoglycemia
9. Check lipid panel and HbA1c
Will follow
Discussed patient care with: Patient and his , ED Dr Gunter
[2023-08-14 11:46] LABS: Hemoglobin 11.4 g/dL (13.0-18.0); Mean Corp Hgb Conc. 34.5 g/dL (33.0-37.0); Mean Corpuscular Volume 89.7 fL (80.0-94.0); Mean Platelet Volume 11.2 fL (7.4-10.4); Platelet Count 194 10^3/uL (130-400); Red Blood Cell Count 3.68 10^6/uL (4.70-6.10); Red Cell Dist. Width 13.2 % (11.5-14.5); White Blood Cell Count 8.4 10^3/uL (4.8-10.8)
[2023-08-14 11:59] LABS: INR 0.99; PT 12.9 Sec (11.4-14.6)
[2023-08-14 12:00] VITALS: BP 177/101
[2023-08-14 12:00] LABS: APTT 25.8 Sec (23.4-35.0)
[2023-08-14 12:09] LABS: Blood Urea Nitrogen 47 mg/dl (9-20); Calcium 10.3 mg/dl (8.4-10.2); Carbon Dioxide 28 mmol/L (22-30); Chloride 104 mmol/L (98-107); Glucose 168 mg/dl (70-99); Sodium 136 mmol/L (135-145); eGFR 21.04
--- NOTE | 2023-08-14 12:23 | HPS.HSE ---
Family Physician
-
Family Physician: Lane Purdy
Chief Complaint
-
Slurred speech
History of Present Illness
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
presents to the emergency department with acute episode of expressive aphasia at around 10 AM while sitting down for dinner. Patient woke up in her usual state of health speaking normally with no focal deficits prior to the event. According to the
spouse the patient seemed confused unable to explain himself or bring out his words. He had no facial asymmetry, focal weakness or sensory deficits. He had no ambulatory abnormalities.
Patient was brought to the emergency department. Within about 1-1 and half hours symptoms gradually resolved and is at this time completely asymptomatic.
Patient's prior CVA was in May when he presented with confusion and mild right-sided weakness. At the time patient had recently stopped taking Plavix. He was treated with 21 days of Plavix and aspirin and is now currently on aspirin alone.
While limited by pain patient was hypertensive to 150/110, pulse rate was 77, respiratory was 16 and oxygen saturation was 99. ECG showed normal sinus rhythm at a rate of 69 and occasional PVCs which are unchanged from prior. CT of the head was
unremarkable. 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 CBC was unchanged from prior. Chemistry shows no acute abnormalities with potassium pending at this time.
Medical History
Past Medical History
Past Medical History: Reports CVA and HTN
Additional Past Medical History:
CKD 4
BPH
Past Surgical History: Reports None
Social History
Tobacco: Former Smoker
Alcohol: None
Drug: None
Personal:
Living: With Family
Employment: Retired
Family History
Family History: Not pertinent
Allergies / Home Medications
Allergies reflects when Allergies were last updated in [employer].
Home Medications with original date entered in [employer]
Allergy/Medication List:
Allergies
Allergy/AdvReac Type Severity Reaction Status Date / Time
bee venom protein (honey bee) Allergy Anaphylaxis Verified 08/14/23 11:40
Home Medications
simvastatin 20 mg tablet 20 mg PO DAILY High Cholesterol 03/08/12
calcitriol 0.25 mcg capsule 0.5 mcg PO DAILY Kidney Disease 05/17/23
tamsulosin 0.4 mg capsule 0.8 mg PO HS Urinary Issue 05/17/23
amlodipine 5 mg tablet 5 mg PO DAILY 30 days #30 tabs 05/18/23
aspirin 81 mg chewable tablet 81 mg PO DAILY Blood Clot Prevention/Tx 07/25/23
ferrous sulfate 325 mg (65 mg iron) tablet 325 mg PO DAILY 08/14/23
hydrochlorothiazide 12.5 mg tablet 12.5 mg PO Q48H 08/14/23
Review of Systems
-
History Source: Patient and Family
Constitutional: Reports Not Done
EENT: Reports No Symptoms
Respiratory: Reports No Symptoms
Cardiac: Reports No Symptoms
Abdomen/GI: Reports No Symptoms
: Reports No Symptoms
Musculoskeletal: Reports No Symptoms
Skin: Reports No Symptoms
Neurological: Reports Other (aphasia)
Endocrine: Reports No Symptoms
Hematologic/Lymphatic: Reports No Symptoms
Psych: Reports No Symptoms
Physical Exam
Vital Signs
Vital Signs
Pulse Resp BP Pulse Ox
79 16 154/117 99
08/14/23 10:57 08/14/23 10:57 08/14/23 10:57 08/14/23 10:57
Physical Exam
General: Well Developed, No Apparent Distress, Conversant and Good Appetite
HEENT: NormoCephalic, Anicteric, Moist mucous membranes, Atraumatic, PERRLA and [place] Conjunctivae
Respiratory: Clear
Cardiac: S1/S2 and Regular Rhythm
Breast: Deferred by me
GI: Soft, Non Tender, Non Distended and Normal Bowel Sounds
Rectal: Deferred by Provider
Genito-urinary: Deferred by me
Musculoskeletal: No Clubbing, No Cyanosis and No Edema
Neuro: AO x 3
Hematologic/Lymphatic: No Lymphadenopathy
Psych: Calm
Laboratory Results
-
08/14/23 11:25
08/14/23 11:25
Laboratory Results
PT 12.9 Sec (11.4-14.6) 08/14/23 11:25
INR 0.99 08/14/23 11:25
APTT 25.8 Sec (23.4-35.0) 08/14/23 11:25
Total Bilirubin Cancelled 08/14/23 11:25
AST Cancelled 08/14/23 11:25
ALT Cancelled 08/14/23 11:25
Alkaline Phosphatase Cancelled 08/14/23 11:25
Data Reviewed
-
CT Scan: Report Reviewed by me
Medical Tests (Nuc Med, Echo, EKG etc): Image Personally Visualized and interpreted
Lab Data: Labs Reviewed by me
Old Records: Reviewed
Impression/Plan
-
IMPRESSION:
88 y.o male with history of recent left basal ganglia ischemic CVA may 2023 without residual deficit, HTN, BPH and CKD IV who presents to ED with acute episode of difficulty speaking lasting approximately 1.5 hours now resolved. Currently
without any neurological deficit with NIHSS = 0. CT head is negative. 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 Vital signs stable except for hypertension. Patient has normal speech on my examination
and per spouse and speech pathology. He has passed swallow evaluation. Presentation c/w TIA after stopping plavix but recurrent stroke not entirely ruled out.
PLAN:
1. TIA/CVA - Currently w/o deficit, NIHSS=0. High risk of impending stroke however. Passed initial speech/swallow exam.
- admit to telemetry
- MRI, echo,
- neurochecks q 6
- seen by Neuro s/p aspirin high dose and plavix 300 and to start on aspirin/plavix thereafter
- continue statin
- concern for occult cardiac embolic source, consider outpatient monitoring and cardiology eval
- BP control per current home meds
- PT eval
2. HTN - Labile BP per patient and family but usually well controlled at clinic in the 140s - 150s systolic on current regimen. Age appropriate.
- continue norvas, hctz and monitor
3. CKD IV - Unchanged
- avoid nephrotoxins
- continue calcitriol
- tamsulosin for BPH
DVT PPX with heparin sq
Full Code
[2023-08-14] MEDS: PLAVIX 300 MG PO (12:27)
[2023-08-14] MEDS: ASPIRIN 325 MG PO (12:27)
--- NOTE | 2023-08-14 12:27 | PTOTSP ---
Speech Therapy
Presentation: Patient's speech, language and cognition was WNL during informal conversation and orientation questions. Patient has a history of working with speech services for dysarthria. This morning, patient had aphasia and aphasia which
warranted his arrival to ED. Per patient and his , patient's speech is back to baseline.
Speech Assessment: TOOL PROCUREMENT COORDINATOR performed portions of the Bedside [place] Aphasia Battery in which patient scored: 10/10 on spontaneous speech, 9/10 spontaneous fluency speech (intermittent moments of hesitation), 9/10 on yes/ no questions, 9/10 object
naming, and adequately wrote his name and majority of his address in a legible manner.
Swallowing Function: TOOL PROCUREMENT COORDINATOR trialed several bites of cracker and sips of thin liquids (straw) in which patient appeared to tolerate as he did not exhibit any overt clinical s/sx of aspiration or difficulty with mastication/ manipulation. Patient denied
any dysphagia complaints.
Recommendations:
1) Regular consistency solids and thin liquids
2) Standard aspiration precautions
3) Consider further speech and language assessment
4) Medications as tolerated
Plan: TOOL PROCUREMENT COORDINATOR will continue to follow; pending hospitalization.
[2023-08-14 14:00] VITALS: BP 166/76
[2023-08-14] MEDS: LIPITOR 10 MG PO (17:09)
[2023-08-14 19:00] VITALS: BP 163/79
[2023-08-14] MEDS: FLOMAX 0.800000000000000044 MG PO (20:53)
[2023-08-14] MEDS: HEPARIN 5000 UNITS SC (20:53)
[2023-08-14 23:53] VITALS: BP 177/91
[2023-08-15 03:20] VITALS: BP 175/85
[2023-08-15 06:14] LABS: Blood Urea Nitrogen 45 mg/dl (9-20); Calcium 10.3 mg/dl (8.4-10.2); Carbon Dioxide 26 mmol/L (22-30); Chloride 104 mmol/L (98-107); Glucose 99 mg/dl (70-99); HDL Cholesterol 62 mg/dl; LDL Cholesterol, Calculated 40 mg/dl; Potassium 3.1 mmol/L (3.5-5.1); Sodium 136 mmol/L (135-145); Total Cholesterol 120 mg/dl (50-199); Triglyceride 90 mg/dl (10-149); Very Low Density Lipoprotein 18 mg/dl (0-30); eGFR 19.37
[2023-08-15 07:00] VITALS: BP 163/83
[2023-08-15] MEDS: ASPIR LOW (ENTERIC COATED) 81 MG PO (07:39)
[2023-08-15] MEDS: FEOSOL 325 MG PO (07:40)
[2023-08-15] MEDS: HEPARIN 5000 UNITS SC (07:40)
[2023-08-15] MEDS: ROCALTROL 0.5 MCG PO (07:40)
[2023-08-15] MEDS: PLAVIX 75 MG PO (07:40)
[2023-08-15] MEDS: NORVASC 5 MG PO (07:41)
--- NOTE | 2023-08-15 08:31 | W.PN.NEURO.1 ---
Today's Communication / Plan
-
-Place on DAPT therapy, aspirin 81 mg daily Clopidogrel 75 mg daily for 3 weeks, return to aspirin 81 mg daily after 3 weeks
-Upon discharge can stay on home dose of Simvastatin 20 mg daily as LDL is at goal level
-Strongly encouraged seeking outpatient rhythm monitoring, acceptable to start with 1-2 weeks Holter monitor but if no atrial fibrillation found I think would best to pursue LINQ/implanted cardiac rhythm monitor
-Check TTE
-Continue to monitor on cardiac telemetry here
-Unless TTE shows serious abnormality patient will be most likely acceptable for discharge home later today
-Neurology follow up outpatient 4-6 weeks
Call with questions and concerns
Neuro Assessment/Plan
Assessment
88 year old man with previous left basal ganglia ischemic stroke in May 2023, hypertension presenting with expressive aphasia with symptoms resolving by time of ER evaluation.
CTA negative for significant intracranial or carotid stenosis
LDL is 40
MRI brain images and report review, I agree it is unlikely the abnormal DWI signal represents a new stroke, more likely imaging abnormality that can occur due to the previous stroke
Previous TTE had showed mild left atrial dilation
Most likely a TIA of the left hemisphere
Most likely etiologies of TIA in this patient are small vessel disease mostly due to hypertension, there is decent possibility of underlying atrial fibrillation as potential cause
Subjective/Objective
Subjective Data
Date of Service: August 15, 2023
No acute events, patient feels speech has returned to baseline, no new symptoms, no headache, denies unilateral weakness or numbness
Objective Data
Vital Signs
Temp Pulse Resp BP Pulse Ox
98.2 F 63 17 163/83 95
08/15/23 07:00 08/15/23 07:41 08/15/23 07:00 08/15/23 07:41 08/15/23 07:00
Lab Results
08/14/23 11:25
08/15/23 05:07
PT 12.9 Sec (11.4-14.6) 03/03/24 11:25
INR 0.99 08/14/23 11:25
APTT 25.8 Sec (23.4-35.0) 08/14/23 11:25
Sodium 136 mmol/L (135-145) 08/15/23 05:07
Potassium 3.1 mmol/L (3.5-5.1) L 08/15/23 05:07
BUN 45 mg/dl (9-20) H 08/15/23 05:07
Glucose 99 mg/dl (70-99) 08/15/23 05:07
Calcium 10.3 mg/dl (8.4-10.2) H 08/15/23 05:07
LDL Cholesterol, Calc 40 mg/dl 08/15/23 05:07
Patient Allergies
bee venom protein (honey bee) Allergy (Verified 08/14/23 11:40)
Anaphylaxis
Review of Systems
-
History Source: Patient
All other systems: Reviewed and negative
Constitutional: No Symptoms
EENT: No Symptoms Reported
Respiratory: No Symptoms
Cardiac: No Symptoms
Abdomen/GI: No Symptoms
Genitourinary: No Symptoms
Musculoskeletal: No Symptoms
Skin: No Symptoms
Neuro: No Symptoms and Speech Problem
Endocrine: No Symptoms
Hematologic / Lymphatic: No Symptoms
Allergy / Immunology: No Symptoms
Physical Exam
-
General: No Apparent Distress
Eyes: No Ptosis
HEENT: Normocephalic
Neck: No Bruits Bilaterally
Respiratory: Clear to Auscultation
Cardiac: Regular Rhythm
GI: Normal Bowel Sounds
Skin: Unremarkable
Extremities: No Clubbing
Psych: Intact Judgement/Insight; Negative Confused
Extended Neurological Exam
Mood & Affect: Mood Unremarkable and Affect Unremarkable
Attention Span & Concentration: Awake, Alert and Interactive
Memory: Unremarkable
Tremor: Hand Tremor Absent
Speech: Quality Unremarkable and Quantity Unremarkable; Negative Expressive Aphasia or Receptive Aphasia
Cranial Nerve II: Left Eye: Pupillary Reactivity Unremarkable, Pupillary Size Unremarkable and Visual Scott Intact
Cranial Nerve II: Right Eye: Pupillary Reactivity Unremarkable, Pupillary Size Unremarkable and Visual Scott Intact
Cranial Nerves III, IV, : Extraocular Movement: Extraocular Movement Full in all Directions
Cranial Nerve VII: Facial Symmetry: Normal Facial Symmetry
Cranial Nerve VIII: Hearing: Unremarkable Hearing to Normal Conversational Volume
Muscle Strength, Overall: Full Throughout
Pronator Drift: No Drift in Upper Extremities
Deep Tendon Reflexes: Trace Throughout
Data Reviewed
-
CT-A: Report Reviewed and Image Reviewed
MRI Head: Report Reviewed and Image Reviewed
Echocardiogram: Ordered and Pending
[2023-08-15 09:08] LABS: Glycohemoglobin (HgbA1c) 5.5 % (4.0-5.6)
[2023-08-15 09:27] VITALS: BP 172/92; PULSE 63; O2SAT 99
[2023-08-15 09:28] VITALS: BP 172/92; PULSE 69; O2SAT 98
[2023-08-15 11:00] VITALS: BP 149/79
--- NOTE | 2023-08-15 14:38 | W.PN.HOSP.TC ---
Addendum entered and electronically signed by Feliberto Rico MD 08/15/23 15:26:
See patient on hydrochlorothiazide despite chronic kidney disease stage IV results on calcitriol. Suspect hydrochlorothiazide being used to account for calcium issues. I advised patient and his to follow-up with the PCP. No changes to be
made to his antihypertensive regimen.Pt does not know the indication for HCTZ and has been on it for a while.
Original Note:
Today's Communication/Plan
-
DC planning
Assessment / Plan
Assessment / Plan
IMPRESSION:
88 y.o male with history of recent left basal ganglia ischemic CVA may 2023 without residual deficit, HTN, BPH and CKD IV who presents to ED with acute episode of difficulty speaking lasting approximately 1.5 hours now resolved.� Currently
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
and per spouse and speech pathology.� He has passed swallow evaluation.� Presentation c/w TIA after stopping plavix but recurrent stroke not entirely ruled out.�
PLAN:
1.� TIA/CVA -remains w/o deficit, NIHSS=0. Speech impairment resolved without recurrence.� Passed initial speech/swallow exam.�
- MRI of the brain showed no evidence of acute stroke;old stroke noted. Appreciate neurology input. CTA of the head and neck shows no significant stenosis.
- Clinical concern is left hemispheric TIA. Etiology could be small vessel disease, hypertension. Rule out any arrhythmias. EKG on admission showed a sinus rhythm. PACs and bigeminy noted on the monitor. Repeated twelve-lead EKG today. Echo
from today pending. He will require pocket marker/Holter for 1 to 2 weeks and discharged on October the Linq after that.
-Continue with the dual antiplatelet agents for neurology
- continue statin; LDL in 40
- BP control per current home meds
-If echo and EKG negative would discharge him home with above plan.
2. HTN - Labile BP per patient and family but usually well controlled at clinic in the 140s - 150s systolic on current regimen.� Age appropriate.
-Systolic blood pressure 149 this morning.
- continue norvasc but will increase dose to BID instead of HCTZ
- HCTZ not indicated with CKD 4 .
- Pt agreeable
3. CKD IV - Unchanged
- avoid nephrotoxins
- continue calcitriol
- tamsulosin for BPH
DVT PPX with heparin sq
Full Code
DC after ECHO and EKG
Anticipated Discharge: Today
Subjective/Interval History
-
Date of Service: August 15, 2023
Resolved speech disturbance. No new symptoms.
Objective Data
-
Labs:
Laboratory Results
08/15/23
05:07
Sodium 136
Potassium 3.1 L
Chloride 104
Carbon Dioxide 26
BUN 45 H
Creatinine 3.0 H
Glucose 99
Calcium 10.3 H
Vital Signs:
Vital Signs
Temp Pulse Resp BP Pulse Ox
97.6 F 80 17 149/79 98
08/15/23 11:00 08/15/23 11:00 08/15/23 11:00 08/15/23 11:00 08/15/23 11:00
I&O
08/14/23 08/15/23 08/16/23
06:59 06:59 06:59
Intake Total 240 / 240
Output Total 300 / 300
Balance -60 / -60
Review of Systems
-
Respiratory: Denies Trouble Breathing
Cardiac: Denies Chest Pain or Palpitations
Abdomen/GI: Denies Nausea
Neuro: Denies Dizzy, Weakness, Numbness or Tremors
Physical Exam
-
General: No Apparent Distress
HEENT: Moist Mucous Membranes
Respiratory: Clear to Auscultation
Cardiac: Regular Rhythm and S1/S2
GI: Soft
Neuro: AO x 3; Negative No Motor Deficits, Tremors, Slurred Speech or Facial Droop
Psych: Calm; Negative Confused
Data Reviewed
-
Labs: Labs Reviewed by me
[2023-08-15 14:52] VITALS: BP 159/73
--- NOTE | 2023-08-15 14:58 | VNURNOTE ---
Patient is current with [facility] since 07/29 w/ SN/PT/ST, will monitor progress and plan at discharge.
--- NOTE | 2023-08-15 15:23 | W.DS.TRANS ---
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
-
Discharge Instructions:
Discharge Diagnosis/Procedures TIA
Diet Low Cholesterol,2 Gram Sodium
Activity As tolerated
Driving Restrictions No driving for 1 week
Bathing Restrictions None
Instructions:
Stand-Alone Forms:
Changes to Home Medications: Yes
Discharge Medications:
DC Medications w/original date entered in [employer]
simvastatin 20 mg tablet 20 mg PO DAILY High Cholesterol 03/08/12
calcitriol 0.25 mcg capsule 0.5 mcg PO DAILY Kidney Disease 05/17/23
tamsulosin 0.4 mg capsule 0.8 mg PO HS Urinary Issue 05/17/23
aspirin 81 mg chewable tablet 81 mg PO DAILY Blood Clot Prevention/Tx 07/25/23
ferrous sulfate 325 mg (65 mg iron) tablet 325 mg PO DAILY Supplement 08/14/23
hydrochlorothiazide 12.5 mg tablet 12.5 mg PO Q48H Blood Pressure 08/14/23
amlodipine 5 mg tablet 5 mg PO DAILY 30 days #30 tabs 08/15/23
clopidogrel 75 mg tablet 75 mg PO DAILY #20 tabs 08/15/23
Home Medication Changes
New medication - plavix for another 20 days and then contiue with aspirin only
Pending Results: No
[2023-08-15] MEDS: LIPITOR 10 MG PO (17:00)
--- NOTE | 2023-08-15 17:13 | CM ---
Alert awake oriented patient who lives with his Pearl who lives in a 1 story home with 3 step to enter and bed and bathroom first floor. He is independent in all activities of daily living.He was offered VN he requested to resume [facility].( Irene
liaison [facility] aware)
Pharmacy [facility]
PCP DR Purdy
PLAN Home resumption [facility]
--- NOTE | 2023-08-16 08:33 | VNURNOTE ---
[facility] resumption of care completed in [facility] after review of chart.
== END 2023-08-15 18:01 | disposition home health service (06) | DRG 69 ==
LOC: 3 WEST ACU 12:58
PROVIDERS: ADMITTING PHYSICIAN Internal Medicine; ATTENDING PHYSICIAN Internal Medicine; CONSULT PHYSICIAN Student in an Organized Health Care Education/Training Program; EMERGENCY PHYSICIAN Emergency Medicine; FAMILY PHYSICIAN Internal Medicine
DX: G45.9 Transient cerebral ischemic attack, unspecified (principal); N18.4 Chronic kidney disease, stage 4 (severe); Z87.891 Personal history of nicotine dependence; I12.9 Hypertensive chronic kidney disease with stage 1 through stage 4 chronic kidney disease, or unspecified chronic kidney disease; R29.700 NIHSS score 0; N40.0 Benign prostatic hyperplasia without lower urinary tract symptoms
CPT/HCPCS: 70450; 70496; 70498; 70551; 80048; 80061; 82962; 83036; 85027; 85610; 85730; 93005; 93306; 97162; 97166; 99285; Q9967

== ENCOUNTER → 2023-08-18 14:11 | Outpatient (REF) | payer MEDICARE, SELFPAY | LOC: WOUND 14:11 | PROVIDERS: ATTENDING PHYSICIAN Surgery; FAMILY PHYSICIAN Internal Medicine | DX: S31.000A Unspecified open wound of lower back and pelvis without penetration into retroperitoneum, initial encounter (principal); L05.91 Pilonidal cyst without abscess; N18.4 Chronic kidney disease, stage 4 (severe); G60.9 Hereditary and idiopathic neuropathy, unspecified; I12.9 Hypertensive chronic kidney disease with stage 1 through stage 4 chronic kidney disease, or unspecified chronic kidney disease; X58.XXXA Exposure to other specified factors, initial encounter | CPT/HCPCS: 11042 ==

== ENCOUNTER → 2023-08-26 13:19 | Outpatient (REF) | payer MEDICARE, SELFPAY | LOC: WOUND 13:19 | PROVIDERS: ATTENDING PHYSICIAN Surgery; FAMILY PHYSICIAN Internal Medicine | DX: S31.000A Unspecified open wound of lower back and pelvis without penetration into retroperitoneum, initial encounter (principal); L05.91 Pilonidal cyst without abscess; N18.4 Chronic kidney disease, stage 4 (severe); I10 Essential (primary) hypertension; G60.9 Hereditary and idiopathic neuropathy, unspecified; X58.XXXA Exposure to other specified factors, initial encounter | CPT/HCPCS: 11042 ==

== ENCOUNTER → 2023-09-01 14:26 | Outpatient (REF) | payer MEDICARE, SELFPAY | LOC: WOUND 14:26 | PROVIDERS: ATTENDING PHYSICIAN Surgery; FAMILY PHYSICIAN Internal Medicine | DX: S31.000A Unspecified open wound of lower back and pelvis without penetration into retroperitoneum, initial encounter (principal); L05.91 Pilonidal cyst without abscess; N18.4 Chronic kidney disease, stage 4 (severe); G60.9 Hereditary and idiopathic neuropathy, unspecified; I12.9 Hypertensive chronic kidney disease with stage 1 through stage 4 chronic kidney disease, or unspecified chronic kidney disease; X58.XXXA Exposure to other specified factors, initial encounter | CPT/HCPCS: 11042 ==

== ENCOUNTER → 2023-09-08 13:58 | Outpatient (REF) | payer MEDICARE, SELFPAY | LOC: WOUND 13:58 | PROVIDERS: ATTENDING PHYSICIAN Surgery; FAMILY PHYSICIAN Internal Medicine | DX: S31.000A Unspecified open wound of lower back and pelvis without penetration into retroperitoneum, initial encounter (principal); L05.91 Pilonidal cyst without abscess; N18.4 Chronic kidney disease, stage 4 (severe); G60.9 Hereditary and idiopathic neuropathy, unspecified; I12.9 Hypertensive chronic kidney disease with stage 1 through stage 4 chronic kidney disease, or unspecified chronic kidney disease; X58.XXXA Exposure to other specified factors, initial encounter | CPT/HCPCS: 11042 ==

== ENCOUNTER → 2023-09-09 09:14 | Outpatient (REF) | payer MEDICARE, SELFPAY ==
[2023-09-09 10:17] LABS: % Basophils 0.9 % (0-2); % Eosinophils 4.5 % (0-6); % Immature Granulocytes 0.3 % (0-0.5); % Lymphocytes 24.9 % (20.5-51.1); % Monocytes 7.1 % (1.7-9.3); % Neutrophils 62.3 % (42.2-75.2); Absolute Basophils 0.1 10^3/uL (0-0.2); Absolute Eosinophils 0.4 10^3/uL (0-0.7); Absolute Lymphocytes 2.2 10^3/uL (1.2-3.4); Absolute Monocytes 0.6 10^3/uL (0.1-0.6); Absolute Neutrophils 5.5 10^3/uL (1.4-6.5); Hematocrit 36.7 % (39.0-52.0); Hemoglobin 12.2 g/dL (13.0-18.0); Mean Corp Hgb Conc. 33.2 g/dL (33.0-37.0); Mean Corpuscular Hgb 30.3 pg (27.0-31.0); Mean Corpuscular Volume 91.3 fL (80.0-94.0); Mean Platelet Volume 10.9 fL (7.4-10.4); Nucleated Red Blood Cells % 0 % (-); Platelet Count 209 10^3/uL (130-400); Red Blood Cell Count 4.02 10^6/uL (4.70-6.10); Red Cell Dist. Width 13.5 % (11.5-14.5); White Blood Cell Count 8.9 10^3/uL (4.8-10.8)
[2023-09-09 10:37] LABS: Urine Albumin Trace (Neg - Trace); Urine Bilirubin Negative (Negative); Urine Character Clear (Clear); Urine Color Straw; Urine Glucose Negative (Negative); Urine Ketone Negative (Negative); Urine Leukocyte Negative (Negative); Urine Nitrite Negative (Negative); Urine Occult Blood Negative (Negative); Urine Urobilinogen Negative (Neg - 1+)
[2023-09-09 10:39] LABS: ALT (SGPT) 14 U/L (0-50); AST (SGOT) 20 U/L (17-59); Albumin 4.1 g/dl (3.5-5.0); Alkaline Phosphatase 64 U/L (38-126); Blood Urea Nitrogen 59 mg/dl (9-20); Calcium 11.1 mg/dl (8.4-10.2); Carbon Dioxide 25 mmol/L (22-30); Chloride 104 mmol/L (98-107); Glucose 92 mg/dl (70-99); HDL Cholesterol 78 mg/dl; LDL Cholesterol, Calculated 41 mg/dl; Potassium 3.5 mmol/L (3.5-5.1); Sodium 137 mmol/L (135-145); Total Cholesterol 137 mg/dl (50-199); Total Protein 6.8 g/dl (6.3-8.2); Triglyceride 91 mg/dl (10-149); Very Low Density Lipoprotein 18 mg/dl (0-30); eGFR 15.56
[2023-09-09 10:58] LABS: Erythrocyte Sed Rate 11 mm/hour (0-20)
== END ==
LOC: REG 09:14
PROVIDERS: ATTENDING PHYSICIAN Internal Medicine
DX: G45.9 Transient cerebral ischemic attack, unspecified (principal); Z86.73 Personal history of transient ischemic attack (TIA), and cerebral infarction without residual deficits; I10 Essential (primary) hypertension; N18.4 Chronic kidney disease, stage 4 (severe); R00.1 Bradycardia, unspecified; G62.89 Other specified polyneuropathies; E78.00 Pure hypercholesterolemia, unspecified; L05.91 Pilonidal cyst without abscess
CPT/HCPCS: 36415; 80053; 80061; 81003; 85025; 85652

== ENCOUNTER → 2023-09-19 14:48 | Outpatient (REF) | payer MEDICARE, SELFPAY ==
[2023-09-19 16:04] LABS: Blood Urea Nitrogen 54 mg/dl (9-20); Calcium 11.1 mg/dl (8.4-10.2); Carbon Dioxide 26 mmol/L (22-30); Chloride 104 mmol/L (98-107); Glucose 88 mg/dl (70-99); Phosphorus 4.7 mg/dl (2.5-4.5); Potassium 3.4 mmol/L (3.5-5.1); Sodium 137 mmol/L (135-145); eGFR 16.67
== END ==
LOC: REG 14:48
PROVIDERS: ATTENDING PHYSICIAN Internal Medicine; OTHER PHYSICIAN Internal Medicine
DX: N18.4 Chronic kidney disease, stage 4 (severe) (principal)
CPT/HCPCS: 36415; 80069

== ENCOUNTER → 2023-09-22 13:56 | Outpatient (REF) | payer MEDICARE, SELFPAY | LOC: WOUND 13:56 | PROVIDERS: ATTENDING PHYSICIAN Surgery; FAMILY PHYSICIAN Internal Medicine | DX: S31.000A Unspecified open wound of lower back and pelvis without penetration into retroperitoneum, initial encounter (principal); L05.91 Pilonidal cyst without abscess; N18.4 Chronic kidney disease, stage 4 (severe); I10 Essential (primary) hypertension; G60.9 Hereditary and idiopathic neuropathy, unspecified; X58.XXXA Exposure to other specified factors, initial encounter | CPT/HCPCS: 99213 ==

== ENCOUNTER → 2023-10-03 09:11 | Outpatient (REF) | payer MEDICARE, SELFPAY ==
[2023-10-03 14:28] LABS: Albumin 3.9 g/dl (3.5-5.0); Blood Urea Nitrogen 48 mg/dl (9-20); Calcium 10.1 mg/dl (8.4-10.2); Carbon Dioxide 23 mmol/L (22-30); Chloride 107 mmol/L (98-107); Glucose 83 mg/dl (70-99); Phosphorus 3.4 mg/dl (2.5-4.5); Potassium 4.5 mmol/L (3.5-5.1); Sodium 136 mmol/L (135-145); eGFR 20.17
== END ==
LOC: REG 09:11
PROVIDERS: ATTENDING PHYSICIAN Internal Medicine
DX: N17.9 Acute kidney failure, unspecified (principal)
CPT/HCPCS: 36415; 80069

== ENCOUNTER → 2023-10-07 14:23 | Outpatient (REF) | payer MEDICARE, SELFPAY | LOC: WOUND 14:23 | PROVIDERS: ATTENDING PHYSICIAN Surgery; FAMILY PHYSICIAN Internal Medicine | DX: S31.000A Unspecified open wound of lower back and pelvis without penetration into retroperitoneum, initial encounter (principal); L05.91 Pilonidal cyst without abscess; N18.4 Chronic kidney disease, stage 4 (severe); I10 Essential (primary) hypertension; G60.9 Hereditary and idiopathic neuropathy, unspecified; X58.XXXA Exposure to other specified factors, initial encounter | CPT/HCPCS: 99212 ==

== ENCOUNTER → 2023-11-03 14:39 | Outpatient (REF) | payer MEDICARE, SELFPAY | LOC: WOUND 14:39 | PROVIDERS: ATTENDING PHYSICIAN Surgery; FAMILY PHYSICIAN Internal Medicine | DX: S31.000A Unspecified open wound of lower back and pelvis without penetration into retroperitoneum, initial encounter (principal); L05.91 Pilonidal cyst without abscess; N18.4 Chronic kidney disease, stage 4 (severe); I10 Essential (primary) hypertension; G60.9 Hereditary and idiopathic neuropathy, unspecified; X58.XXXA Exposure to other specified factors, initial encounter | CPT/HCPCS: 11042 ==

== ENCOUNTER 2023-11-11 13:33 | Outpatient (RCR) | payer MEDICARE, SELFPAY | END 2023-11-11 23:59 | disposition home or self-care (01) | LOC: ROT 13:33 | PROVIDERS: ATTENDING PHYSICIAN Internal Medicine | DX: I69.318 Other symptoms and signs involving cognitive functions following cerebral infarction (principal); I69.314 Frontal lobe and executive function deficit following cerebral infarction; I69.398 Other sequelae of cerebral infarction; I69.311 Memory deficit following cerebral infarction; R26.89 Other abnormalities of gait and mobility; I10 Essential (primary) hypertension; Z91.81 History of falling; Z73.6 Limitation of activities due to disability | CPT/HCPCS: 96125; 97110; 97112; 97129; 97130; 97162; 97167; 97530; 97535 ==

== ENCOUNTER → 2023-11-14 10:37 | Outpatient (REF) | payer MEDICARE, SELFPAY | LOC: WOUND 10:37 | PROVIDERS: ATTENDING PHYSICIAN Surgery; FAMILY PHYSICIAN Internal Medicine | DX: S31.000A Unspecified open wound of lower back and pelvis without penetration into retroperitoneum, initial encounter (principal); I12.9 Hypertensive chronic kidney disease with stage 1 through stage 4 chronic kidney disease, or unspecified chronic kidney disease; L05.91 Pilonidal cyst without abscess; N18.4 Chronic kidney disease, stage 4 (severe); G60.9 Hereditary and idiopathic neuropathy, unspecified; X58.XXXA Exposure to other specified factors, initial encounter | CPT/HCPCS: 99213 ==

== ENCOUNTER → 2023-11-18 09:20 | Outpatient (REF) | payer MEDICARE, SELFPAY | LOC: PAVMRI 09:20 | PROVIDERS: ATTENDING PHYSICIAN Internal Medicine | DX: R26.89 Other abnormalities of gait and mobility (principal); S31.000A Unspecified open wound of lower back and pelvis without penetration into retroperitoneum, initial encounter; G60.9 Hereditary and idiopathic neuropathy, unspecified; M51.36 Other intervertebral disc degeneration, lumbar region | CPT/HCPCS: 72148 ==

== ENCOUNTER → 2023-11-21 06:45 | Outpatient (REF) | payer MEDICARE, SELFPAY ==
[2023-11-21 08:02] LABS: % Basophils 1.3 % (0-2); % Eosinophils 11.3 % (0-6); % Immature Granulocytes 0.2 % (0-0.5); % Lymphocytes 20.5 % (20.5-51.1); % Monocytes 6.8 % (1.7-9.3); % Neutrophils 59.9 % (42.2-75.2); Absolute Basophils 0.1 10^3/uL (0-0.2); Absolute Lymphocytes 1.8 10^3/uL (1.2-3.4); Absolute Monocytes 0.6 10^3/uL (0.1-0.6); Absolute Neutrophils 5.2 10^3/uL (1.4-6.5); Hematocrit 38.9 % (39.0-52.0); Hemoglobin 12.9 g/dL (13.0-18.0); Mean Corp Hgb Conc. 33.2 g/dL (33.0-37.0); Mean Corpuscular Hgb 31.4 pg (27.0-31.0); Mean Corpuscular Volume 94.6 fL (80.0-94.0); Mean Platelet Volume 10.9 fL (7.4-10.4); Nucleated Red Blood Cells % 0 % (-); Platelet Count 207 10^3/uL (130-400); Red Blood Cell Count 4.11 10^6/uL (4.70-6.10); Red Cell Dist. Width 13.4 % (11.5-14.5); White Blood Cell Count 8.7 10^3/uL (4.8-10.8)
[2023-11-21 08:16] LABS: ALT (SGPT) 16 U/L (0-50); AST (SGOT) 20 U/L (17-59); Albumin 4.2 g/dl (3.5-5.0); Alkaline Phosphatase 74 U/L (38-126); Blood Urea Nitrogen 51 mg/dl (9-20); Calcium 10.3 mg/dl (8.4-10.2); Carbon Dioxide 26 mmol/L (22-30); Chloride 105 mmol/L (98-107); Glucose 99 mg/dl (70-99); Potassium 3.8 mmol/L (3.5-5.1); Sodium 141 mmol/L (135-145); Total Bilirubin 0.7 mg/dl (0.2-1.3); Total Protein 6.9 g/dl (6.3-8.2); eGFR 18.62
[2023-11-21 08:21] LABS: Erythrocyte Sed Rate 14 mm/hour (0-20)
[2023-11-21 08:53] LABS: TSH 3.72 uIU/ml (0.47-4.68)
[2023-11-21 09:28] LABS: Folate 6.1 ng/ml (2.76-20); Vitamin B12 283 pg/ml (239-931)
[2023-11-24 05:45] LABS: Albumin 4.14 g/dL (3.75-5.01); Alpha 1 Globulin 0.39 g/dL (0.19-0.46); Alpha 2 Globulin 0.66 g/dL (0.48-1.05); SPEP IFE Reflex Not Done; Total Protein-Electrophoresis 6.9 g/dL (6.3-8.2)
== END ==
LOC: REG 06:45
PROVIDERS: ATTENDING PHYSICIAN Internal Medicine
DX: R26.89 Other abnormalities of gait and mobility (principal); S31.000A Unspecified open wound of lower back and pelvis without penetration into retroperitoneum, initial encounter; G60.9 Hereditary and idiopathic neuropathy, unspecified; N18.4 Chronic kidney disease, stage 4 (severe); M51.36 Other intervertebral disc degeneration, lumbar region; M50.30 Other cervical disc degeneration, unspecified cervical region; N39.498 Other specified urinary incontinence; R63.4 Abnormal weight loss; R41.82 Altered mental status, unspecified
CPT/HCPCS: 36415; 80053; 82607; 82746; 84155; 84165; 84443; 85025; 85652

== ENCOUNTER → 2023-11-22 07:37 | Outpatient (REF) | payer MEDICARE, SELFPAY | LOC: EMG 07:37 | PROVIDERS: ATTENDING PHYSICIAN Internal Medicine | DX: R20.0 Anesthesia of skin (principal); M54.12 Radiculopathy, cervical region; M54.17 Radiculopathy, lumbosacral region | CPT/HCPCS: 95886; 95913 ==

== ENCOUNTER 2023-11-23 13:34 | Outpatient (RCR) | payer MEDICARE, SELFPAY | END 2023-11-23 23:59 | disposition home or self-care (01) | LOC: ROT 13:34 | PROVIDERS: ATTENDING PHYSICIAN Internal Medicine | DX: I63.9 Cerebral infarction, unspecified (principal); Z73.6 Limitation of activities due to disability | CPT/HCPCS: 97110; 97112; 97116; 97129; 97130; 97530; 97535 ==

== ENCOUNTER → 2023-11-25 08:24 | Outpatient (REF) | payer MEDICARE, SELFPAY | LOC: MRI 08:24 | PROVIDERS: ATTENDING PHYSICIAN Internal Medicine | DX: R29.898 Other symptoms and signs involving the musculoskeletal system (principal); M51.36 Other intervertebral disc degeneration, lumbar region; R26.81 Unsteadiness on feet | CPT/HCPCS: 70551; 72141 ==

== ENCOUNTER → 2023-11-25 13:44 | Outpatient (REF) | payer MEDICARE, SELFPAY | LOC: WOUND 13:44 | PROVIDERS: ATTENDING PHYSICIAN Surgery; FAMILY PHYSICIAN Internal Medicine | DX: S31.000A Unspecified open wound of lower back and pelvis without penetration into retroperitoneum, initial encounter (principal); L05.91 Pilonidal cyst without abscess; N18.4 Chronic kidney disease, stage 4 (severe); G60.9 Hereditary and idiopathic neuropathy, unspecified; I12.9 Hypertensive chronic kidney disease with stage 1 through stage 4 chronic kidney disease, or unspecified chronic kidney disease | CPT/HCPCS: 99213 ==

== ENCOUNTER 2023-11-27 06:04 | Inpatient (IN) | payer MEDICARE, SELFPAY ==
[2023-11-26 23:28] VITALS: BP 170/60
[2023-11-27] VITALS (14 sets, daily range): BP systolic 124–159; BP diastolic 59–92; PULSE 47–95; BMI 21.0; BMI 20.1
[2023-11-27 01:18] LABS: Blood Urea Nitrogen 59 mg/dl (9-20); Carbon Dioxide 22 mmol/L (22-30); Chloride 105 mmol/L (98-107); Estimated Creatinine Clearance 14 ml/min; Glucose 107 mg/dl (70-99); Potassium 3.9 mmol/L (3.5-5.1); Sodium 136 mmol/L (135-145); eGFR 19.37
--- NOTE | 2023-11-27 01:25 | ED.GENMED ---
History of Present Illness
General
Chief Complaint: Skin Surface Trauma
Source: patient and spouse
Time Seen by Provider: 11/27/23 01:12
Travel History
Have you had any contact with someone who has COVID-19?: No
Do you have any symptoms of coronavirus? Fever > 100 degrees, chills, cough, shortness of breath, sore throat, loss of taste or smell, muscle aches, or headache?: No
History of Present Illness
History of Present Illness:
88-year-old male with past medical history of CVA, hypertension, hyperlipidemia presenting to the emergency department for evaluation after he fell earlier this evening around 10 PM. Patient states he had the sudden urge to urinate and was trying
to get to the bathroom using his walker but tripped over the carpet steam shovel runner the floor. Patient has had multiple falls over the last couple of weeks and has been receiving outpatient physical therapy and Occupational Therapy but has still had
multiple falls despite this. reports that primary care provider ordered an MRI head and cervical spine which were done here yesterday but they are unsure of these results. Patient notes that he did hit his head on the ground today noting a
left eyebrow laceration and contusion to the right side of his face. He also notes some mild right shoulder pain taking Tylenol states the pain in the shoulder is resolved. No reported loss consciousness, vomiting, visual changes, headache or any
other concerns.
Past History
Past History
ED Past Medical History: CVA, HTN, Hypercholesterolemia and Other (Pilonidal cyst)
ED Past Surgical History: Orthopedic (Right rotator cuff, bilateral carpal tunnel)
Social History
Tobacco: Former smoker
Alcohol: None
Drug: None
Personal:
Living: with family
Review of Systems
Review of Systems
All Other Systems: ROS reviewed and negative except as documented in HPI and ROS
Phy Exam
Physical Exam
Physical Exam:
GENERAL: Alert , in no apparent distress
EYE: conjunctiva clear
NECK: Supple, no midline tenderness
ENT: o/p clr, mmm.
CARDIAC: Regular rate and rhythm
LUNGS: Clear breath sounds bilaterally, no acute respiratory distress, no wheezes/rales/rhonchi
NEUROLOGICAL: Alert and oriented x 3
SKIN: Warm and dry, 1-1/2 cm laceration horizontally oriented, superficial, just proximal to the left eyebrow. There is a superficial abrasion over the maxilla with no active bleeding. Contusion to the right lateral orbit/upper eyelid
MUSCULOSKELETAL: well perfused. Full range of motion of the upper extremities bilateral
PSYCH: Normal and appropriate interaction.
Scores
Heart Failure Risk
Heart Failure Risk Score: Not Applicable
Heart Score for Chest Pain Patients
STEMI patient?: Not applicable
Withdrawal Assessment of Alcohol
Withdrawal Assessment Completed?: Not applicable
Course
Orders/Labs/Results
Orders:
Orders
11/27/23 00:51
Basic Metabolic Panel Urgent
Complete Blood Count/With Diff Urgent
11/27/23 01:24
CT Head W/o Iv Contrast Urgent
Comment:
Reason For Exam: fall, head injury, hx CVA
CR Shoulder, Trauma - Right Urgent
Comment:
Reason For Exam: fall, pain
11/27/23 05:14
Admit/Transfer Patient As Directed
Co-Sign Provider:
Level of Care: Inpatient admission
Assign to:: Telemetry
Physician / Group: Austen
Diagnosis: Cord Compression / Vert Art Dissection
Reason for Telemetry: CVA/TIA
Date to Stop Telemetry: 11/30/23
Time to Stop Telemetry: 11:00
Reason for Hospitalization: Cord Compression / Vert Art Dissection
Expected length of stay greater than two midnights?: Yes
ELOS- Estimated Length of Stay in days: 3
I certify the patient meets the requirements for IP care: Yes
11/27/23 05:15
Code Status As Directed
Resuscitation Status: Full Code
11/27/23 06:21
Acetaminophen [Tylenol] 650 mg PO Q4HPRN PRN
Dexamethasone Sod Phosphate [Decadron] 4 mg IV Q6
Polyethylene Glycol Powder [Miralax] 17 grams PO DAILYPRN PRN
11/27/23 06:21
NEUROLOGY CONSULT Routine
Consulting Provider: Whitney Rivas
Was physician already notified: Yes
Reason for consult: Cord Compression / Vert Art Dissection
Neurosurgery Consult Routine
Consulting Provider: Tony Nova
Was physician already notified: Yes
Reason for Consult: Cervical Cord Compression
Activity As Directed
Activity Level: Ambulate
With Assistance
Bladder Scan As Directed
Follow Bladder Retention/Intermittent Cath Algorithm?: Yes
PRN if no void in __ hours: 6
Frequency: Per Retention Algorithm
If Bladder Scan Result >: 400
then:: Straight cath
EKG with chest pain [ECG as needed] As Directed
ECG as needed for:: Chest Pain
I/O [Intake/ Output] As Directed
Frequency: Per unit guidelines
Neurological Checks As Directed
Frequency: q4h
Orthostatic Vital Signs As Directed
Orthostatic VS Frequency: BID
Pneumatic Compression Sleeves As Directed
Type: Knee high
Straight Cath As Directed
Frequency: Per Retention Algorithm
Additional Instructions: straight cath as needed per acute urinary retention algorithm for 24 hrs
Additional Instructions: for bladder scan greater than 400 mL
Vital Signs As Directed
Frequency: Per unit guidelines
Oxygen Therapy [O2 Therapy] [RESP] Routine
Titrate/Wean O2 to maintain O2 sat greater than (%): 94
Ot Eval And Treat Routine
PT Consult [Pt Eval And Treat] Routine
Activity Level: Ambulate
With Assistance
DX Deep Vein Thrombosis Video Routine
11/27/23 08:00
Amlodipine [Norvasc] 5 mg PO BID
Aspirin Chewable [Low Strength Aspirin] 81 mg PO DAILY
Metoprolol Xl [Toprol Xl] 12.5 mg PO DAILY
11/27/23 18:00
Atorvastatin [Lipitor] 10 mg PO QPM
11/27/23 22:00
Tamsulosin [Flomax] 0.8 mg PO HS
11/28/23 06:00
Basic Metabolic Panel IN AM
Complete Blood Count/No Diff IN AM
11/30/23 11:00
DC Protocol for Telemetry ONCE
Abnormal Lab Results
11/27/23
00:51
WBC 11.3 H 10^3/uL
(4.8-10.8)
RBC 3.82 L 10^6/uL
(4.70-6.10)
Hgb 12.0 L g/dL
(13.0-18.0)
Hct 34.2 L %
(39.0-52.0)
MCH 31.4 H pg
(27.0-31.0)
MPV 11.0 H fL
(7.4-10.4)
Abs Immat Gran (auto) 0.2 H 10^3/uL
(0-0.05)
Absolute Neuts (auto) 8.0 H 10^3/uL
(1.4-6.5)
Absolute Monos (auto) 0.8 H 10^3/uL
(0.1-0.6)
Immature Gran % 1.3 H %
(0-0.5)
Lymphocytes % 16.8 L %
(20.5-51.1)
BUN 59 H mg/dl
(9-20)
Creatinine 3.0 H mg/dL
(0.7-1.3)
Glucose 107 H mg/dl
(70-99)
11/27/23 00:51
11/27/23 00:51
Vital Signs
Initial and Last Documented VS:
Initial Vital Signs
Temp Pulse Resp BP Pulse Ox
97.6 F 58 20 170/60 100
11/26/23 23:28 11/26/23 23:28 11/26/23 23:28 11/26/23 23:28 11/26/23 23:28
Last Documented Vital Signs
Temp Pulse Resp BP Pulse Ox
98.2 F 59 18 128/59 99
11/27/23 11:44 11/27/23 11:44 11/27/23 11:44 11/27/23 11:44 11/27/23 11:44
Camp Attendant consulted with Physician
Camp Attendant consulted with physician?: Yes
Name of Physician Consulted: Amina
Procedures
Laceration Closure
Left Eye brow:
Status of Wound: clean
Size of Wound in cm: 1.5
Description of Wound Edges: sharp
Preparation: cleaned with saline
Revision/Debridement: routine- no revision
Type of Closure: Dermabond-skin glue
*Critical Care Note
Total Time (30-74mins, 75-104mins- exclusive of procedures): Not Applicable
Data Reviewed
Review of Other/Old Records Reveals: Records and Radiology Studies
Comment
Comment:
Patient's MRI of the brain and cervical spine were reviewed. 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 There is also severe spinal cord compression, central canal stenosis and
edema/myelomalacia at C3-C5. Other findings are mostly chronic. Due to the dissection findings I sent a stat notification to neurosurgery on-call, Dr. Nova, to help with disposition planning
Patient Management
Discussion with other providers: Hospitalist and [employer] Representative
Escalation/DeEscalation of care consider admission/obs:
Per neurosurgery they do not recommend any intervention and neurology can be consulted for remaining care. I spoke to Dr. Rivas from neurology who states to treat the dissection with 81 mg aspirin. Patient already took his dose of this today.
Okay with admission at this facility. Notification sent to hospitalist team who accepts for continued evaluation and treatment.
ED Attending Note
-
Portions of this chart may have been created with voice recognition software.� Occasional wrong word or��sound alike� substitutions may have occurred due to the inherent limitations of voice recognition software.
Discharge Plan
Departure
Patient Disposition: Admit
Date of Disposition: 11/27/23
Time of Disposition: 02:41
Presentation/result/management discussed w/ accepting MD/DO: Hospitalist
Discharge Problem:
Accidental fall, Laceration of scalp, Vertebral artery dissection
Interventions
Interventions:
*Risk Screen - Suicide Last Done: 11/26/23 23:28
*General Assessment Last Done: 11/27/23 00:40
*Neglect/Abuse Screening Last Done: 11/26/23 23:28
ED- Fall Risk Assessment Last Done: 11/27/23 06:24
*ED COVID-19 Vaccine History Last Done: 11/27/23 01:09
*Nursing Disposition Last Done: 11/27/23 06:24
ED-Musculoskeletal Assessment Last Done: 11/27/23 00:40
ED- Neurological Assessment Last Done: 11/27/23 00:40
ED-Skin Assessment Last Done: 11/27/23 00:40
ED Swallowing Screen Last Done: 11/27/23 00:40
Discharge Date and Time
Discharge Date/Time: 11/27/23 06:25
[2023-11-27 01:30] LABS: % Eosinophils 3.6 % (0-6); % Immature Granulocytes 1.3 % (0-0.5); % Lymphocytes 16.8 % (20.5-51.1); % Monocytes 6.8 % (1.7-9.3); % Neutrophils 70.5 % (42.2-75.2); Absolute Basophils 0.1 10^3/uL (0-0.2); Absolute Eosinophils 0.4 10^3/uL (0-0.7); Absolute Immature Granulocytes 0.2 10^3/uL (0-0.05); Absolute Lymphocytes 1.9 10^3/uL (1.2-3.4); Absolute Monocytes 0.8 10^3/uL (0.1-0.6); Hematocrit 34.2 % (39.0-52.0); Mean Corp Hgb Conc. 35.1 g/dL (33.0-37.0); Mean Corpuscular Hgb 31.4 pg (27.0-31.0); Mean Corpuscular Volume 89.5 fL (80.0-94.0); Nucleated Red Blood Cells % 0 % (-); Platelet Count 215 10^3/uL (130-400); Red Blood Cell Count 3.82 10^6/uL (4.70-6.10); Red Cell Dist. Width 13.3 % (11.5-14.5); White Blood Cell Count 11.3 10^3/uL (4.8-10.8)
--- NOTE | 2023-11-27 05:19 | HPS.HSE ---
Family Physician
-
Family Physician: Lane Purdy
Chief Complaint
-
Fall / Gait Dysfunction
History of Present Illness
Patient is an 88y M with PMH significant for CVA / TIA, hypertension and CKD who presents to ED complaining of frequent falls. History obtained from patient and his at the bedside. reports marked decrease in functional ability over
the past 2 1/2 weeks or so with frequent falling in that time period. His most recent fall was this evening. He has multiple areas of skin tears, bruising and superficial lacerations - including on the head / face. Patient denies any significant
pain.
This evening, he was pushing his walker when it caught on the edge of a rug and her fell forward over it.
Patient has had recent outpatient testing for his gait dysfunction - including MR of the brain and C-spine done on 11/24.
These results are noted this evening and include severe cervical cord compression as well as subacute vertebral artery dissection.
Medical History
Past Medical History
Past Medical History: Reports Other
Additional Past Medical History:
Hypertension
BPH
PMR
Dyslipidemia
ASCVD / CVA
CKD IV
DDD
Past Surgical History: Reports Other
Additional Past Surgical History:
Right YAMIL
T&A
Pilonidal Cyst Excision
Bilateral Rotator Cuff Repairs
Social History
Tobacco: Former Smoker
Alcohol: Occasional
Drug: None
Personal:
Living: With Family
Family History
Family History: Not pertinent
Allergies / Home Medications
Allergies reflects when Allergies were last updated in [facility].
Home Medications with original date entered in [facility]
Allergy/Medication List:
Allergies
Allergy/AdvReac Type Severity Reaction Status Date / Time
bee venom protein (honey bee) Allergy Anaphylaxis Verified 11/26/23 23:32
Home Medications
simvastatin 20 mg tablet 20 mg PO DAILY High Cholesterol 03/08/12
tamsulosin 0.4 mg capsule 0.8 mg PO HS Urinary Issue 05/17/23
aspirin 81 mg chewable tablet 81 mg PO DAILY Blood Clot Prevention/Tx 07/25/23
ferrous sulfate 325 mg (65 mg iron) tablet 325 mg PO DAILY Supplement 08/14/23
hydrochlorothiazide 12.5 mg tablet 12.5 mg PO Q48H Blood Pressure 08/14/23
amlodipine 5 mg tablet 5 mg PO BID 11/27/23
metoprolol succinate 25 mg tablet,extended release 24 hr 12.5 mg PO DAILY 11/27/23
Review of Systems
-
History Source: Patient and Family
A 12 point ROS was completed and negative except as noted: Yes
Constitutional: Denies Fever or Chills
EENT: Denies Sore Throat
Respiratory: Denies Cough or Trouble Breathing
Cardiac: Denies Chest Pain or Palpitations
Abdomen/GI: Denies Abdominal Pain, Nausea, Vomiting or Diarrhea
: Denies Dysuria, Frequency, Flank Pain or Incontinence
Musculoskeletal: Denies Joint Pain, Joint Swelling or Edema
Neurological: Reports Weakness and Other (Frequent falls); Denies Dizzy
Psych: Denies Depression or Anxiety
Physical Exam
Vital Signs
Vital Signs
Temp Pulse Resp BP Pulse Ox
97.6 F 63 14 149/86 98
11/26/23 23:28 11/27/23 02:11 11/27/23 02:11 11/27/23 02:11 11/27/23 02:11
Physical Exam
General: Other (88y M in no acute distress.)
HEENT: Moist mucous membranes and PERRLA
Respiratory: Clear; No Wheezes, Rales or Rhonchi
Cardiac: S1/S2 and Regular Rhythm; No Murmur
GI: Soft, Non Tender, Non Distended and Normal Bowel Sounds
Musculoskeletal: No Clubbing, No Cyanosis and No Edema
Neuro: AO x 3 and Other (No evidence of focal weakness by exam.)
Laboratory Results
-
11/27/23 00:51
11/27/23 00:51
Impression/Plan
-
A/P: Patient is an 88y M with PMH significant for HTN, CVA and CKD who presents to ED following a fall with recent history of frequently falling.
Ambulatory Dysfunction / Frequent Falls
Cervical Cord Compression - Severe
- Admit for further evaluation and treatment.
- notes new decline in the past 2 1/2 weeks and increased falls in that time.
- Cord compression with edema noted on CT, but no apparent LE weakness / etc on exam.
- Trial of steroid for noted edema.
- Neurosurgery evaluation for additional recommendations.
- PT / OT evaluations.
ASCVD
Subacute Left Vertebral Artery Dissection
- Left vertebral artery dissection may also be contributing to increased ataxia / posterior circulation ischemia.
- Continue ASA, statin, etc.
- Neurology evaluation.
- PT / OT evals as noted above.
Benign Hypertension
- Stable. Continue current BP med regimen and adjust as needed.
CKD IV
- Stable. SCr is at / near known baseline.
- Follow for any changes.
BPH
- Stable. Continue tamsulosin.
- Check orthostatic signs to ensure postural hypotension is not contributing to gait issues / falls.
- Bladder scan protocol.
DVT Prophylaxis: SCDs
Code Status: Full
--- NOTE | 2023-11-27 06:35 | PTCARENOTE ---
Patient came from ED via stretcher. Patient accompanied by . MANOLO Jeong. Patient pulled over onto the bed. Oriented to the room. Bed alarm in place. Call javier within reach.
[2023-11-27] MEDS: DECADRON 4 MG IV ×3 (06:37→17:14)
[2023-11-27] MEDS: LOW STRENGTH ASPIRIN 81 MG PO (07:59)
[2023-11-27] MEDS: NORVASC 5 MG PO ×2 (07:59→19:46)
[2023-11-27] MEDS: TOPROL XL 12.5 MG PO (07:59)
--- NOTE | 2023-11-27 10:06 | CON.NEURO4 ---
Consultation - Neurology 4
-
CONSULTING PHYSICIAN: Evelyn
REFERRING PHYSICIAN: ER
DICTATED BY: Evelyn
DATE/TIME OF REQUEST: 11/26/23 in late evening
DATE/TIME OF CONSULTATION: 11/27/23 in the AM
Reason for Consultation: dissection
History of Present Illness:
88 year old male with a history of stroke who follows in our practice with Dr. Belle as an outpatient who has been having frequent falls x 2.5 weeks. Most recent fall was yesterday evening. His PCP Dr. Purdy ordered MRI brain and Cspine in workup
for his falls which were done on 11/24 and showed severe cervical cord compression and a subacute vertebral artery dissection; no acute stroke noted.
Past Medical History:
Hypertension
BPH
PMR
Dyslipidemia
ASCVD
CVA--seen previously by our group and follows with Dr. Belle as an outpatient
CKD IV
DDD
Past Surgical History:
Right YAMIL
T&A
Pilonidal Cyst Excision
Bilateral Rotator Cuff Repairs
Social History
Tobacco: Former Smoker
Alcohol: Occasional
Drug: None
Personal:
Living: With Family
Family History: Not pertinent
Home Medications
�Medication �Instructions �Recorded
simvastatin 20 mg tablet 20 mg PO DAILY High Cholesterol 03/08/12
tamsulosin 0.4 mg capsule 0.8 mg PO HS Urinary Issue 05/17/23
aspirin 81 mg chewable tablet 81 mg PO DAILY Blood Clot 07/25/23
Prevention/Tx
ferrous sulfate 325 mg (65 mg 325 mg PO DAILY Supplement 08/14/23
iron) tablet
hydrochlorothiazide 12.5 mg tablet 12.5 mg PO Q48H Blood Pressure 08/14/23
amlodipine 5 mg tablet 5 mg PO BID 11/27/23
metoprolol succinate 25 mg 12.5 mg PO DAILY 11/27/23
tablet,extended release 24 hr
Allergies
bee venom protein (honey bee) Allergy (Verified 11/26/23 23:32)
Anaphylaxis
Review of Symptoms:
Patient denies any fever, headache, chest pain, shortness of breath, GI or symptoms.
�Per the HPI.�All systems are reviewed negative except above.
Vital Signs
Temp Pulse Resp BP Pulse Ox
97.9 F 66 18 159/85 96
11/27/23 06:36 11/27/23 06:36 11/27/23 06:36 11/27/23 06:36 11/27/23 08:00
Lab Results
11/27/23 00:51
11/27/23 00:51
Sodium 136 mmol/L (135-145) 11/27/23 00:51
Potassium 3.9 mmol/L (3.5-5.1) 11/27/23 00:51
BUN 59 mg/dl (9-20) H 11/27/23 00:51
Glucose 107 mg/dl (70-99) H 11/27/23 00:51
Calcium 10.0 mg/dl (8.4-10.2) 11/27/23 00:51
Physical Exam:
The patient is afebrile, heart sounds S1 and S2 are regular, and chest is clear to auscultation bilaterally.
NIH Stroke Scale :
I performed the NIH stroke scale on the patient on 11/27/23 at 1015 The patient scored 4 points on the NIH stroke scale assessment, which were assigned as follows: 1 each for drift in all 4 extremities
Neurologic Examination:
The patient is awake, alert and oriented x 3. (He/She) is able to follow commands and answer questions appropriately. There is no aphasia or dysarthria. On cranial nerve assessment, pupils are 3 mm bilateral, round and reactive to light and
accommodation. Visual araiza are full. Extraocular movements are intact. Facial sensations are intact and bilaterally symmetrical, there is no facial asymmetry. Hearing is intact bilaterally to normal conversation volume. Tongue palate and uvula
are midline. Sternocleidomastoid strengths are full bilaterally. Motor strengths are 5/5 bilateral upper and lower extremities on medical research [place] scale. There is no drift or involuntary movement noted. Deep tendon reflexes are 2+ bilateral
upper and lower extremities and Babinski is absent bilaterally. Sensations of pain, touch, temperature and vibration are intact and bilaterally symmetrical. There was no extinction noted on double simultaneous stimulation. Coordination is intact by
finger to nose bilaterally.
Lab Results:
Neuro Imaging:
MRI Cspine, 11/25/23:
1. SEVERE SPINAL CORD COMPRESSION and CENTRAL CANAL STENOSIS at C3/C4 and C4/C5 which has increased since 03/14/2020.
2. SEVERE EDEMA or MYELOMALACIA in the cervical spinal cord at C3/C4 and C4/C5.
3. 2.5 mm anterolisthesis of C3 on C4 secondary to severe left-sided facet joint arthrosis.
4. 3.6 mm anterolisthesis of C4 on C5 secondary to severe left-sided facet joint arthrosis.
5. Severe discogenic degenerative disease at C4/C5 through T1/T2.
6. Large disc-osteophyte complex at C5/C6 causing moderate spinal cord compression.
7. Large right central disc-osteophyte complex at C6/C7 causing mild spinal cord compression.
8. SEVERE NEURAL FORAMINAL NARROWING: Severe bilateral neural foraminal narrowing at C3/C4, severe left neural foraminal narrowing at C4/C5, and severe bilateral neural foraminal narrowing at C6/C7.
9. 1.3 cm mass adjacent to the lower pole of the right lobe of the thyroid gland (parathyroid adenoma, lymph node, or exophytic thyroid nodule).
10. 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
MRI brain, 11/25/23:
1. SEVERE SPINAL CORD COMPRESSION and CENTRAL CANAL STENOSIS at C3/C4 and C4/C5 secondary to both severe discogenic degenerative disease and facet joint arthrosis.
2. Moderate diffuse cerebral and cerebellar volume loss.
3. Small chronic infarcts in the left basal ganglia and periventricular left frontal lobe.
4. Mild white matter leukoaraiosis in the frontal and parietal lobes.
5. SUBACUTE DISSECTION of the LEFT INTRACRANIAL VERTEBRAL ARTERY.
6. Tiny chronic intraparenchymal microhemorrhage in the right cerebellar hemisphere.
Impression:
RANDY BARON is a 88 year old M who has presented to the hospital with frequent falls and a subacute L vertebral artery dissection and severe cervical spinal cord compression.
Recommendations:
1. continue ASA 81mg daily and statin
2. reviewed imaging results; no clear acute stroke from dissection--imaging done two days ago
3. neurosurgery evaluation for Cspine myelopathy
4. continue neurochecks, NIHSS
Will c/t follow.
Discussed patient care with: patient, ER, Dr. Myers
--- NOTE | 2023-11-27 11:47 | W.PN.HOSP.TC ---
Today's Communication/Plan
-
Neuro surgery eval
Steroids
PT OT
Assessment / Plan
Assessment / Plan
88-year-old male Presented with frequent falls for the past 2 weeks. MRI showed severe cervical cord compression and subacute vertebral artery dissection no acute stroke.
MRI 11/25/2023-severe spinal cord compression and central canal stenosis at C3-C4 and C4-C5 increased since 2019.
Severe edema or mild malacia in the spinal cord C3-C4 and C4-C5.
2.5 mm anterolisthesis of C3 on C4, 3.6 mm anterolisthesis C4 on C5.
Severe discogenic DJD C4-C5 and T1-T2
Large disc osteophyte complex C5-C6 causing moderate spinal cord compression
Large right central disc osteophyte complex C6-C7 causing mild spinal cord compression
Severe neural foraminal narrowing C3-C4 C4-C5 C6-C7
1 cm mass adjacent to the lower pole of the right lobe of the thyroid
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
MRI of the brain 11/25/2023
Severe spinal cord compression and central canal stenosis C3-C4 and C4-C5
Moderate diffuse cerebral and cerebellar volume loss
Small chronic infarcts in the left basal ganglia and periventricular left frontal lobe
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
Tiny chronic intraparenchymal microhemorrhage in the right cerebellar hemisphere
Echo 08/15/2023-mild concentric LVH. Ejection fraction 45%. Mild global hypokinesis. Mild annular calcification, thickened mitral leaflets, aortic sclerosis dilated RV and normal pulmonary pressure
AA oriented
Skin with a lot of areas with echymosis
Sutures- Eye broows
Muscle wasting hands
5/5 strength B/L UE and LE
Abdomen SOft NT
Chest CTA
# Severe spinal cord compression and central canal stenosis with neuroforaminal stenosis and anterolisthesis of multiple vertebral level cervical spine.
Severe edema and myelomalacia
Continue steroids
Neurosurgery evaluation
Continue neurochecks and NIH scale
Likely not a candidate for Surgical interventions given age and CKD
# Vertebral artery dissection-subacute
Chronic infarcts in the left basal ganglia and periventricular left frontal lobe
Continue aspirin, statin
Neurology evaluation appreciated
# Sleep apnea
# Hypertension-on metoprolol, amlodipine and hydrochlorothiazide as outpatient
# Hyperlipidemia-statin
# CKD stage IV
# Cardiomyopathy NOS
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
Biopsy July 2023-nondiagnostic
# History of diverticulosis
# Prostatic hypertrophy-Flomax
# Osteoarthritis
# DVT prophylaxis- SCD
# Full code
D/W RN
D/W Son at bed side
Anticipated Discharge: 24 - 48 hours
Subjective/Interval History
-
Date of Service: November 27, 2023
Objective Data
-
Labs:
Laboratory Results
11/27/23
00:51
WBC 11.3 H
Hgb 12.0 L
Hct 34.2 L
Plt Count 215
Sodium 136
Potassium 3.9
Chloride 105
Carbon Dioxide 22
BUN 59 H
Creatinine 3.0 H
Glucose 107 H
Calcium 10.0
Vital Signs:
Vital Signs
Temp Pulse Resp BP Pulse Ox
98.2 F 59 18 128/59 99
11/27/23 11:44 11/27/23 11:44 11/27/23 11:44 11/27/23 11:44 11/27/23 11:44
--- NOTE | 2023-11-27 15:00 | CM ---
CM met with pt and spouse
[place] [address] [place]
Pt is typically independent with use of a SPC- has been using [facility] for past few weeks
Pt has hx with [facility]
Pt is currently attending outpt therapy at
PCP- [facility] Purdy
Rx- [facility]
PT/OT evals ordered and pending
CM will follow for dc planning
Discharge Disposition- home, follow for possible needs
[2023-11-27] MEDS: LIPITOR 10 MG PO (17:14)
[2023-11-27] MEDS: FLOMAX 0.800000000000000044 MG PO (21:11)
[2023-11-27] MEDS: TYLENOL 650 MG PO (21:34)
[2023-11-28] VITALS (8 sets, daily range): BP systolic 123–148; BP diastolic 60–80; PULSE 42–69; O2SAT 98
[2023-11-28] MEDS: DECADRON 4 MG IV ×5 (00:24→22:58)
[2023-11-28] MEDS: FLUSH (NSS) 2 FLUSH IV ×2 (00:26→05:44)
[2023-11-28] MEDS: KCL 20 MEQ PO (01:05)
[2023-11-28] MEDS: MAGNESIUM OXIDE 500 MG PO (01:06)
--- NOTE | 2023-11-28 01:53 | PTCARENOTE ---
Patient noted to have increase in PVC and intermittent Bigeminy on tele monitor. TT to [employer] BU[employer], covering house. K and Mg po as ordered.
[2023-11-28 06:58] LABS: Hematocrit 34.1 % (39.0-52.0); Hemoglobin 11.9 g/dL (13.0-18.0); Mean Corp Hgb Conc. 34.9 g/dL (33.0-37.0); Mean Corpuscular Hgb 31.6 pg (27.0-31.0); Mean Corpuscular Volume 90.5 fL (80.0-94.0); Mean Platelet Volume 11.2 fL (7.4-10.4); Platelet Count 211 10^3/uL (130-400); Red Blood Cell Count 3.77 10^6/uL (4.70-6.10); Red Cell Dist. Width 13.2 % (11.5-14.5); White Blood Cell Count 15.9 10^3/uL (4.8-10.8)
[2023-11-28 07:46] LABS: Blood Urea Nitrogen 66 mg/dl (9-20); Calcium 10.3 mg/dl (8.4-10.2); Carbon Dioxide 23 mmol/L (22-30); Chloride 104 mmol/L (98-107); Estimated Creatinine Clearance 13 ml/min; Glucose 141 mg/dl (70-99); Potassium 4.2 mmol/L (3.5-5.1); Sodium 138 mmol/L (135-145); eGFR 18.62
[2023-11-28] MEDS: LOW STRENGTH ASPIRIN 81 MG PO (08:00)
[2023-11-28] MEDS: TOPROL XL 12.5 MG PO (08:00)
[2023-11-28] MEDS: NORVASC 5 MG PO ×2 (08:00→20:48)
--- NOTE | 2023-11-28 08:35 | W.PN.NEURO.1 ---
Addendum entered and electronically signed by Enrico Myers MD 11/28/23 17:01:
I saw and evaluate the patient I reviewed the note by Neha Beatty agree with the findings the following comments:
88-year-old man presented to hospital with increased falls and gait abnormality in the past couple of weeks. He had a history of previous stroke with some mild right arm weakness in the past that has been stable. No new complaints today.
Neurologic examination is notable for bilateral thenar eminence atrophy, mild weakness of shoulder abduction 4/5 bilaterally but worse on the right, right arm flexion also weaker 4/5 compared to the left, hip flexion weaker on the right was 4/5
strength left hip flexion about 5/5, ankle dorsiflexion and plantarflexion 5/5 bilaterally
Hyperreflexia on the right patellar reflex as well as hyperreflexia on the right biceps and brachioradialis as well as positive Sudarshan signs on the right hand. Absent Achilles reflexes bilaterally no clonus.
Diminished sensation to vibratory sense distally bilaterally
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
Cervical spine MRI with significant abnormal spinal cord compression and central canal stenosis at C3/C4 and C4/C5 no intrinsic abnormal signal of the spinal cord itself
Assessment:
Left-sided vertebral artery dissection is an incidental finding at this point and not relevant to the patient's presenting symptoms it has been stable and known about since approximately May 2023 based on brain MRI imaging at that time.
Patient most likely has a mild peripheral neuropathy at baseline.
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 Clinically he showed some signs of cervical myelopathy with
bilateral thenar atrophy, hyperreflexia on the right arm and right leg.
Discussed with family that they will have a conversation with neurosurgery about operative management potentially. I do feel that there is reasonable chance of benefit and could also help for stopping worsening neurologic function gait issues if
operative management is pursued however this will certainly entail risks. 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
Recommendations
-Appreciate neurosurgery evaluation
-Would continue on single antiplatelet 81 mg daily only
-Mobilization physical therapy importance stressed
-Continue vitamin B12 p.o. 1000 mcg daily
Will follow as needed call with questions and concern
Original Note:
Today's Communication / Plan
-
.
Neuro Assessment/Plan
Assessment
88 year old male with a history of stroke who follows in our practice with Dr. Belle as an outpatient who has been having frequent falls x 2.5 weeks. Most recent fall was yesterday evening. His PCP Dr. Purdy ordered MRI brain and Cspine in workup
for his falls which were done on 11/24 and showed severe cervical cord compression and a subacute vertebral artery dissection; no acute stroke noted.
MRI brain 11/25/23: SEVERE SPINAL CORD COMPRESSION and CENTRAL CANAL STENOSIS at C3/C4 and C4/C5 secondary to both severe discogenic degenerative disease and facet joint arthrosis. Moderate diffuse cerebral and cerebellar volume loss. Small chronic
infarcts in the left basal ganglia and periventricular left frontal lobe. Mild white matter leukoaraiosis in the frontal and parietal lobes. SUBACUTE DISSECTION of the LEFT INTRACRANIAL VERTEBRAL ARTERY. Tiny chronic intraparenchymal
microhemorrhage in the right cerebellar hemisphere.
MRI Cervical Spine 11/25/23: SEVERE SPINAL CORD COMPRESSION and CENTRAL CANAL STENOSIS at C3/C4 and C4/C5 which has increased since 03/14/2020. SEVERE EDEMA or MYELOMALACIA in the cervical spinal cord at C3/C4 and C4/C5. 2.5 mm anterolisthesis of C3
on C4 secondary to severe left-sided facet joint arthrosis. 3.6 mm anterolisthesis of C4 on C5 secondary to severe left-sided facet joint arthrosis. Severe discogenic degenerative disease at C4/C5 through T1/T2. Large disc-osteophyte complex at
C5/C6 causing moderate spinal cord compression. Large right central disc-osteophyte complex at C6/C7 causing mild spinal cord compression. SEVERE NEURAL FORAMINAL NARROWING: Severe bilateral neural foraminal narrowing at C3/C4, severe left neural
foraminal narrowing at C4/C5, and severe bilateral neural foraminal narrowing at C6/C7. 1.3 cm mass adjacent to the lower pole of the right lobe of the thyroid gland (parathyroid adenoma, lymph node, or exophytic thyroid nodule). Subacute dissection
of the left intracranial vertebral artery.
I. 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
II. Peripheral neuropathy contributing to gait dysfunction.
III. Subacute left vertebral artery dissection, asymptomatic.
IV. Old left basal ganglia and periventricular left frontal lobe ischemic infarcts. MRI brain negative for acute stroke.
Plan
-Continue aspirin 81mg daily indefinitely for left vertebral dissection/stoke prevention.
-Goal normotension.
-Neurosurgery evaluation.
-LDL goal <70. LDL is 55. Continue home simvastatin 20mg as LDL is at goal.
-Goal normoglycemia, hbA1c is 5.5.
-Vitamin B12 level is low at 283. Initiate cyanocobalamin 1000mcg daily.
-Neurological checks per unit guidelines.
-PT/OT evaluations.
-DVT prophylaxis.
-Will follow as-needed, please contact our Neurology service with any questions/concerns.
Subjective/Objective
Subjective Data
Date of Service: November 28, 2023
No acute events overnight. Patient denies any headache, dizziness, neck pain, slurred speech, diplopia, difficulty swallowing, nausea, chest pain, palpitations, and shortness of breath. He endorses chronic RUE weakness since his stroke in 05/2023
but this significantly worsened over the past 10 days. He notes intermittently tingling in his left face which resolved when he rubs his left cheek.
Objective Data
Vital Signs
Temp Pulse Resp BP Pulse Ox
97.8 F 70 18 139/80 97
11/28/23 07:55 11/28/23 07:55 11/28/23 07:55 11/28/23 07:55 11/28/23 08:23
Lab Results
11/28/23 06:16
11/28/23 06:16
Sodium 138 mmol/L (135-145) 11/28/23 06:16
Potassium 4.2 mmol/L (3.5-5.1) 11/28/23 06:16
BUN 66 mg/dl (9-20) H 11/28/23 06:16
Glucose 141 mg/dl (70-99) H 11/28/23 06:16
Calcium 10.3 mg/dl (8.4-10.2) H 11/28/23 06:16
Patient Allergies
bee venom protein (honey bee) Allergy (Verified 11/26/23 23:32)
Anaphylaxis
LDL Level: <70, continue statin
Review of Systems
-
History Source: Patient
EENT: Negative Blurry Vision, Decreased Vision or Swallowing Difficulty
Respiratory: Negative Cough or Trouble Breathing
Cardiac: Negative Chest Pain or Palpitations
Abdomen/GI: Negative Nausea
Genitourinary: Negative Difficulty Voiding
Neuro: Weakness and Ataxia; Negative Dizzy, Headache, Numbness, Tremors or Speech Problem
Physical Exam
-
General: No Apparent Distress
Eyes: No Ptosis and PERRLA
HEENT: Normocephalic
Neck: Full Range of Motion
Respiratory: No Dyspnea
GI: Non-distended
Skin: Other (b/l periorbital ecchymosis/scabbing, R knee ecchymosis)
Extremities: No Clubbing
Psych: Unremarkable
Extended Neurological Exam
Mood & Affect: Mood Unremarkable and Affect Unremarkable
Attention Span & Concentration: Awake, Alert and Interactive
Memory: Unremarkable (AAOx3) and Able to Recall
Tremor: Hand Tremor Absent and Head Tremor Absent
Involuntary Movement: None
Speech: Quality Unremarkable, Quantity Unremarkable and Rate of Production Unremarkable
Cranial Nerve II: Left Eye: Pupillary Reactivity Unremarkable, Pupillary Size Unremarkable and Visual Scott Intact
Cranial Nerve II: Right Eye: Pupillary Reactivity Unremarkable, Pupillary Size Unremarkable and Visual Scott Intact
Cranial Nerves III, IV, : Extraocular Movement: Extraocular Movement Full in all Directions
Cranial Nerve V: Facial Sensation: Intact to Light Touch
Cranial Nerve VII: Facial Symmetry: Normal Facial Symmetry
Cranial Nerve VIII: Hearing: Unremarkable Hearing to Normal Conversational Volume
Cranial Nerves IX, X: Palate Movement: Palate Elevation Symmetric
Cranial Nerve XI: Shoulder Shrug: Reduced on Right (4/5) and Reduced on Left (5-/5)
Cranial Nerve XII: Tongue Protusion: Midline
Muscle Strength, Overall: Reduced on Right (RUE 4/5, RLE 5-/5)
Muscle Bulk & Tone: Bulk Unremarkable and Tone Unremarkable
Pronator Drift: Drift in Right Upper Extremity
Deep Tendon Reflexes: Other (R patellar 1+ otherwise reflexes absent in BLE, positive Souza's sign bilaterally, otherwise 2+ in BUE.)
Cold Sensation: Reduced Mildly Distally
Vibration Sensation: Absent Distally (in BLE)
Touch Sensation: Double Simultaneous Stimulation Unremarkable
Coordination: [id number] Testing Unremarkable
Babinski Sign: Absent Bilaterally
Gait & Station: Negative Up from Seated Without Problem
Data Reviewed
-
MRI Head: Report Reviewed and Image Reviewed
MRI Cervical Spine: Report Reviewed and Image Reviewed
Labs: Report Reviewed
Lipid Profile: Report Reviewed
HgbA1C: Report Reviewed
Reviewed with: Physician, Patient and Family
Medications
-
Active Medications
Generic Name Dose Route Start Last Admin
Trade Name Freq PRN Reason Stop Dose Admin
Acetaminophen 650 mg 11/27/23 06:21 11/27/23 21:34
Acetaminophen 325 Mg Tablet PO 12/25/23 06:20 650 mg
Q4HPRN PRN Administration
Mild Pain / Temp > 101
Amlodipine Besylate 5 mg 11/27/23 08:00 11/28/23 08:00
Amlodipine 5 Mg Tablet PO 12/25/23 07:59 5 mg
BID NATHALIE Administration
Aspirin 81 mg 11/27/23 08:00 11/28/23 08:00
Aspirin 81 Mg Chewable Tablet PO 12/25/23 07:59 81 mg
DAILY NATHALIE Administration
Atorvastatin Calcium 10 mg 11/27/23 18:00 11/27/23 17:14
Atorvastatin (Lipitor) 10 Mg Tablet PO 12/25/23 17:59 10 mg
QPM NATHALIE Administration
Cyanocobalamin 1,000 mcg 11/28/23 09:00
Cyanocobalamin 1,000 Mcg Tablet PO 12/26/23 08:59
DAILY NATHALIE
Dexamethasone Sodium Phosphate 4 mg 11/27/23 06:21 11/28/23 05:44
Dexamethasone 4 Mg/Ml 1 Ml Vial IV 12/25/23 06:20 4 mg
Q6 NATHALIE Administration
Metoprolol Succinate 12.5 mg 11/27/23 08:00 11/28/23 08:00
Metoprolol 12.5 Mg Extended Release Dose (1/2 Of 25 Mg Xl Tablet) PO 12/25/23 07:59 12.5 mg
DAILY NATHALIE Administration
Polyethylene Glycol 17 grams 11/27/23 06:21
Polyethylene Glycol Powder 17 Grams Packet PO 12/25/23 06:20
DAILYPRN PRN
Constipation
Sodium Chloride 0 flush 11/27/23 07:00 11/28/23 05:44
Sodium Chloride 0.9% (Flush) Syringe IV 12/25/23 06:59 2 flush
PER PROTOCOL NATHALIE Administration
Tamsulosin HCl 0.8 mg 11/27/23 22:00 11/27/23 21:11
Tamsulosin 0.4 Mg Capsule PO 12/25/23 21:59 0.8 mg
HS NATHALIE Administration
Home Medications
�Medication �Instructions �Recorded
simvastatin 20 mg tablet 20 mg PO DAILY High Cholesterol 03/08/12
tamsulosin 0.4 mg capsule 0.8 mg PO HS Urinary Issue 05/17/23
aspirin 81 mg chewable tablet 81 mg PO DAILY Blood Clot 07/25/23
Prevention/Tx
ferrous sulfate 325 mg (65 mg 325 mg PO DAILY Supplement 08/14/23
iron) tablet
hydrochlorothiazide 12.5 mg tablet 12.5 mg PO Q48H Blood Pressure 08/14/23
amlodipine 5 mg tablet 5 mg PO BID Blood Clot 11/27/23
Prevention/Tx
metoprolol succinate 25 mg 12.5 mg PO DAILY Blood Pressure 11/27/23
tablet,extended release 24 hr
[2023-11-28] MEDS: VITAMIN B-12 1000 MCG PO (09:12)
[2023-11-28 09:19] LABS: HDL Cholesterol 64 mg/dl; LDL Cholesterol, Calculated 55 mg/dl; Total Cholesterol 132 mg/dl (50-199); Triglyceride 66 mg/dl (10-149); Very Low Density Lipoprotein 13 mg/dl (0-30)
[2023-11-28 10:16] LABS: Glycohemoglobin (HgbA1c) 5.5 % (4.0-5.6)
--- NOTE | 2023-11-28 11:28 | CON.NS ---
Consultation
-
Date/Time Consultation Performed: 11/28/2023; 11:30
Performing Provider: Pih
Chief Complaint
History of Present Illness
This is a neurosurgical consultation on an 88-year-old gentleman, past medical history of CVA/TIA, hypertension, who presents with history of frequent falls. The noted that he had significant decrease in his overall ability with ambulating
over the last 2 and half weeks or so, with frequent falling. It was reported that yesterday evening, he was pushing his walker, when it caught on the edge of a rug, he fell forward onto it. He had had recent testing for his gait dysfunction, which
included an MRI of the brain, as well as an MRI of the cervical spine. There is evidence of subacute vertebral artery dissection, as well as severe cord compression noted. Neurosurgery consulted for further input/evaluation.
Patient was seen by neurology. He was advised that the patient continue with aspirin 81 mg, and statin.
Patient seen and examined. , Pearl, is at bedside. She reports that his gait has significantly declined over the last several weeks. He does admit that he has baseline right upper, and lower extremity weakness, from previous stroke. He also
does admit hand weakness, dexterity weakness.
Review of Systems
-
10 point review of systems was performed, which included constitutional, ENT, cardiovascular, respiratory, GI, , hematologic, endocrinologic, neurologic, psychiatric, and was negative except for stated in HPI.
Medication and Allergies
Home Medications
Home Medications
�Medication �Instructions �Recorded
simvastatin 20 mg tablet 20 mg PO DAILY High Cholesterol 03/08/12
tamsulosin 0.4 mg capsule 0.8 mg PO HS Urinary Issue 05/17/23
aspirin 81 mg chewable tablet 81 mg PO DAILY Blood Clot 07/25/23
Prevention/Tx
ferrous sulfate 325 mg (65 mg 325 mg PO DAILY Supplement 08/14/23
iron) tablet
hydrochlorothiazide 12.5 mg tablet 12.5 mg PO Q48H Blood Pressure 08/14/23
amlodipine 5 mg tablet 5 mg PO BID Blood Clot 11/27/23
Prevention/Tx
metoprolol succinate 25 mg 12.5 mg PO DAILY Blood Pressure 11/27/23
tablet,extended release 24 hr
Allergies
Allergies
Allergy/AdvReac Type Severity Reaction Status Date / Time
bee venom protein (honey bee) Allergy Anaphylaxis Verified 11/26/23 23:32
Physical Exam
-
Exam:
Awake, alert, no apparent distress.
Cranial nerves II through XII are grossly intact
Motor: 3/5 strength in right deltoid, 4/5 strength throughout right upper and lower extremity. 5/5 strength in left upper and left lower extremity.
Reflexes: 3+ bilaterally in upper and lower extremities.
No clonus.
Positive bilateral Sudarshan's.
Head is normocephalic, bilateral supraorbital lacerations
Neck is supple
Skin is warm, dry
Cardiovascular: Normal rate and rhythm
Respiratory: Nonlabored breathing
Abdomen is soft
Extremities are warm
Gait not tested
MRI of the cervical spine performed on 11/25/2023 demonstrates multilevel cervical spondylotic changes, most significant at C3-4, C4-5. There is evidence of broad-based disc osteophyte complex at C3-4, as well as degenerative disc disease and disc
osteophyte complex at C4-C5, which causes ventral impingement of the spinal cord. There is subtle T2 hyperintensity within the cord at this level suggestive of myelomalacia.
There is note made of intramedullary signal abnormality in the wall of the left vertebral artery, which may be consistent with subacute dissection of the vertebral artery.
Problems
-
Problem Status Onset Code
Vertebral artery dissection I77.74
Laceration of scalp S01.01XA
Accidental fall W19.XXXA
Assessment / Plan
-
Is an 88-year-old gentleman that presents with approximate 2-1/2 to 3-week history of progressive gait decline, and increased falls.
Extensive discussion was held with the patient's at bedside. I discussed all management options, which include nonoperative management with physical therapy/rehab versus trial of physical therapy/rehab and if this fails to improve patient's
gait, then to proceed with surgical intervention versus surgical intervention during this hospitalization.
Patient's , Pearl, would like to discuss with their children later this afternoon about options. However, she is leaning toward surgical intervention sooner, rather than later.
She also reports that she lives closer to [facility], and may prefer transfer to [place] for definitive operative intervention.
I left my business card with the patient's , and will follow-up.
Hospitalist, Dr. Osuna, also at bedside.
--- NOTE | 2023-11-28 14:23 | W.PN.HOSP.TC ---
Today's Communication/Plan
-
Patient and family to make decision whether they want to do surgery or not and timing
Assessment / Plan
Assessment / Plan
88-year-old male Presented with frequent falls for the past 2 weeks. MRI showed severe cervical cord compression and subacute vertebral artery dissection no acute stroke.
MRI 11/25/2023-severe spinal cord compression and central canal stenosis at C3-C4 and C4-C5 increased since 2019.
Severe edema or mild malacia in the spinal cord C3-C4 and C4-C5.
2.5 mm anterolisthesis of C3 on C4, 3.6 mm anterolisthesis C4 on C5.
Severe discogenic DJD C4-C5 and T1-T2
Large disc osteophyte complex C5-C6 causing moderate spinal cord compression
Large right central disc osteophyte complex C6-C7 causing mild spinal cord compression
Severe neural foraminal narrowing C3-C4 C4-C5 C6-C7
1 cm mass adjacent to the lower pole of the right lobe of the thyroid
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
MRI of the brain 11/25/2023
Severe spinal cord compression and central canal stenosis C3-C4 and C4-C5
Moderate diffuse cerebral and cerebellar volume loss
Small chronic infarcts in the left basal ganglia and periventricular left frontal lobe
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
Tiny chronic intraparenchymal microhemorrhage in the right cerebellar hemisphere
Echo 08/15/2023-mild concentric LVH. Ejection fraction 45%. Mild global hypokinesis. Mild annular calcification, thickened mitral leaflets, aortic sclerosis dilated RV and normal pulmonary pressure
AA oriented
Abdomen SOft NT
Chest CTA
Skin with a lot of areas with echymosis
Sutures- Eye broows
Muscle wasting hands
5/5 strength B/L UE and LE
# Severe spinal cord compression and central canal stenosis with neuroforaminal stenosis and anterolisthesis of multiple vertebral level cervical spine.
Severe edema and myelomalacia
Continue steroids
Neurosurgery evaluation
Continue neurochecks and NIH scale
Neurosurgery at bedside discussed options for surgery during hospitalization versus elective versus no surgery
Patient and family to make a decision.
He may be at higher risk given his age and other comorbidities.
If needs surgery may need cardiology to evaluate for risk stratification
# Vertebral artery dissection-subacute
Chronic infarcts in the left basal ganglia and periventricular left frontal lobe
Continue aspirin, statin
Neurology evaluation appreciated
# Sleep apnea
# Hypertension-on metoprolol, amlodipine and hydrochlorothiazide as outpatient
# Hyperlipidemia-statin
# CKD stage IV
# Cardiomyopathy NOS
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
Biopsy July 2023-nondiagnostic
# History of diverticulosis
# Prostatic hypertrophy-Flomax
# Osteoarthritis
# DVT prophylaxis- SCD
# Full code
D/W RN
D/W spouse at bed side
Discussed with neurosurgery at bedside
Anticipated Discharge: > 48 hours
Subjective/Interval History
-
Date of Service: November 28, 2023
Objective Data
-
Labs:
Laboratory Results
11/28/23
06:16
WBC 15.9 H
Hgb 11.9 L
Hct 34.1 L
Plt Count 211
Sodium 138
Potassium 4.2
Chloride 104
Carbon Dioxide 23
BUN 66 H
Creatinine 3.1 H
Glucose 141 H
Calcium 10.3 H
Vital Signs:
Vital Signs
Temp Pulse Resp BP Pulse Ox
97.8 F 60 18 123/62 100
11/28/23 11:22 11/28/23 11:22 11/28/23 11:22 11/28/23 11:22 11/28/23 11:22
I&O
11/27/23 11/28/23 11/29/23
06:59 06:59 06:59
Intake Total 1260 / 1260
Output Total 925 / 925
Balance 335 / 335
[2023-11-28] MEDS: LIPITOR 10 MG PO (17:42)
[2023-11-28] MEDS: FLOMAX 0.800000000000000044 MG PO (20:48)
[2023-11-29] VITALS (7 sets, daily range): BP systolic 104–137; BP diastolic 64–96; PULSE 59–67; O2SAT 98
[2023-11-29] MEDS: DECADRON 4 MG IV ×2 (05:01→12:52)
[2023-11-29] MEDS: LOW STRENGTH ASPIRIN 81 MG PO (08:36)
[2023-11-29] MEDS: TOPROL XL 12.5 MG PO (08:36)
[2023-11-29] MEDS: VITAMIN B-12 1000 MCG PO (08:36)
[2023-11-29] MEDS: NORVASC 5 MG PO (08:36)
[2023-11-29 09:13] LABS: Blood Urea Nitrogen 80 mg/dl (9-20); Calcium 10.2 mg/dl (8.4-10.2); Carbon Dioxide 21 mmol/L (22-30); Chloride 103 mmol/L (98-107); Estimated Creatinine Clearance 13 ml/min; Glucose 178 mg/dl (70-99); Magnesium 2.7 mg/dl (1.6-2.3); Potassium 4.1 mmol/L (3.5-5.1); Sodium 139 mmol/L (135-145); eGFR 18.62
--- NOTE | 2023-11-29 12:17 | W.PN.HOSP.TC ---
Today's Communication/Plan
-
Patient stated he has a family meeting today and will discuss
Wound care consultation for skin tears/ecchymosis
Assessment / Plan
Assessment / Plan
88-year-old male Presented with frequent falls for the past 2 weeks. MRI showed severe cervical cord compression and subacute vertebral artery dissection no acute stroke.
MRI 11/25/2023-severe spinal cord compression and central canal stenosis at C3-C4 and C4-C5 increased since 2019.
Severe edema or mild malacia in the spinal cord C3-C4 and C4-C5.
2.5 mm anterolisthesis of C3 on C4, 3.6 mm anterolisthesis C4 on C5.
Severe discogenic DJD C4-C5 and T1-T2
Large disc osteophyte complex C5-C6 causing moderate spinal cord compression
Large right central disc osteophyte complex C6-C7 causing mild spinal cord compression
Severe neural foraminal narrowing C3-C4 C4-C5 C6-C7
1 cm mass adjacent to the lower pole of the right lobe of the thyroid
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
MRI of the brain 11/25/2023
Severe spinal cord compression and central canal stenosis C3-C4 and C4-C5
Moderate diffuse cerebral and cerebellar volume loss
Small chronic infarcts in the left basal ganglia and periventricular left frontal lobe
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
Tiny chronic intraparenchymal microhemorrhage in the right cerebellar hemisphere
Echo 08/15/2023-mild concentric LVH. Ejection fraction 45%. Mild global hypokinesis. Mild annular calcification, thickened mitral leaflets, aortic sclerosis dilated RV and normal pulmonary pressure
AA oriented
Abdomen Soft NT
Chest CTA
Skin with a lot of areas with ecchymosis
Sutures- Eye brows
Muscle wasting hands
5/5 strength B/L UE and LE
# Severe spinal cord compression and central canal stenosis with neuroforaminal stenosis and anterolisthesis of multiple vertebral level cervical spine.
Severe edema and myelomalacia
Continue steroids
Neurosurgery evaluation appreciated
Continue neurochecks and NIH scale
Neurosurgery discussed options for surgery during hospitalization versus elective versus no surgery
Patient and family to make a decision. Startes that they have a meeting today and will make a decision.
He may be at higher risk given his age and other comorbidities.
If needs surgery may need cardiology to evaluate for risk stratification
# Vertebral artery dissection-subacute
Chronic infarcts in the left basal ganglia and periventricular left frontal lobe
Continue aspirin, statin
Neurology evaluation appreciated
# Sleep apnea
# Skin tears - Wound care eval.
# Hypertension-on metoprolol, amlodipine and hydrochlorothiazide as outpatient
# Hyperlipidemia-statin
# CKD stage IV
# Cardiomyopathy NOS
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
Biopsy July 2023-nondiagnostic
# History of diverticulosis
# Prostatic hypertrophy-Flomax
# Osteoarthritis
# DVT prophylaxis- SCD
# Full code
D/W RN
D/W spouse at bed side
Discussed with neurosurgery
Anticipated Discharge: > 48 hours
Subjective/Interval History
-
Date of Service: November 29, 2023
Objective Data
-
Labs:
Laboratory Results
11/29/23
07:58
Sodium 139
Potassium 4.1
Chloride 103
Carbon Dioxide 21 L
BUN 80 H
Creatinine 3.1 H
Glucose 178 H
Calcium 10.2
Vital Signs:
Vital Signs
Temp Pulse Resp BP Pulse Ox
98 F 61 22 132/71 100
11/29/23 11:20 11/29/23 11:20 11/29/23 11:20 11/29/23 11:20 11/29/23 11:20
I&O
11/28/23 11/29/23 11/30/23
06:59 06:59 06:59
Intake Total 1260 / 1260 1140 / 1140
Output Total 925 / 925 875 / 875
Balance 335 / 335 265 / 265
--- NOTE | 2023-11-29 14:11 | WOUNDNOTE ---
WON RN note: Patient admitted with lacerations s/p fall and vertebral artery dissection. Patient lives with his .
See H&P for complete history.
PMH: HTN, pilonidal cyst, CVA, BPH, R hip replacement, CKD4.
Wound Location and type/assessment: Patient admitted with: Laceration to L eyebrow, surgical glue intact. Skin tears on R elbow, L arm and wrist. Bruising on arms and R eyebrow. 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 Suspect closed as a divot, base is pale pink no drainage. Heels intact.
Appetite: Fair. Patient very thin, encouraged protein in diet.
Pressure redistribution devices in place: [employer] Accumax can turn self and stand independently. Using his own foam U shaped cut out coccyx relief chair cushion in his chair.
Plan: Silicone foam dressing changed on coccyx. Vaseline gauze dressing changed on L arm. R elbow with silicone foam in use. Instructed patient pressure relief measures. Patient has been going to [facility], to follow up with Dr. Guzman upon
discharge. Teaching done with at bedside who is a former OR nurse.
Will confirm orders with hospitalist and updated [facility] Gaxiola.
Care plan to be updated and will follow as needed.
Note to case management of equipment requested for discharge: VN if goes home.
--- NOTE | 2023-11-29 16:00 | W.PN.UPDATE ---
Update Note
Progress Note Update
patient and family decided no surgery. Wants to go home.
D/W Neuro Surgery.
If pt desires surgery can follow up with .
Case management to arrange VN
Discharge cordination time 34 min
--- NOTE | 2023-11-29 16:12 | W.DS.TRANS ---
Addendum entered and electronically signed by Romeo Osuna MD 11/30/23 07:27:
Dictation- [id number]
Original Note:
DC Summary - Pharmacy Operations Coordinator
-
Discharge Instructions:
Discharge Diagnosis/Procedures 1)Severe spinal cord compression and central
canal stenosis with neuroforaminal stenosis and
anterolisthesis of multiple vertebral level
cervical spine.
2)Vertebral artery dissection-subacute
3)Chronic kidney disease
4)Hypertension
Diet 2 Gram Sodium
Activity As tolerated
Driving Restrictions No driving
Other Services PT,VN,OT
Instructions:
Stand-Alone Forms:
Changes to Home Medications: Yes
Discharge Medications:
DC Medications w/original date entered in [employer]
simvastatin 20 mg tablet 20 mg PO DAILY High Cholesterol 03/08/12
tamsulosin 0.4 mg capsule 0.8 mg PO HS Urinary Issue 05/17/23
aspirin 81 mg chewable tablet 81 mg PO DAILY Blood Clot Prevention/Tx 07/25/23
ferrous sulfate 325 mg (65 mg iron) tablet 325 mg PO DAILY Supplement 08/14/23
hydrochlorothiazide 12.5 mg tablet 12.5 mg PO Q48H Blood Pressure 08/14/23
amlodipine 5 mg tablet 5 mg PO BID Blood Clot Prevention/Tx 11/27/23
metoprolol succinate 25 mg tablet,extended release 24 hr 12.5 mg PO DAILY Blood Pressure 11/27/23
cyanocobalamin (vitamin B-12) 1,000 mcg tablet 1,000 mcg PO DAILY Suppliment #0 tabs 11/29/23
polyethylene glycol 3350 17 gram oral powder packet (HealthyLax) 17 g PO DAILYPRN PRN Constipation #0 ea 11/29/23
prednisone 10 mg tablet See Rx Instructions .Route .COMPLEX spine #45 tabs 11/29/23
Home Medication Changes
new
cyanocobalamin (vitamin B-12) 1,000 mcg tablet 1,000 mcg PO DAILY Suppliment #0 tabs 11/29/23
polyethylene glycol 3350 17 gram oral powder packet (HealthyLax) 17 g PO DAILYPRN PRN Constipation #0 ea 11/29/23
prednisone 10 mg tablet See Rx Instructions .Route .COMPLEX spine #45 tabs 11/29/23
Pending Results: No
--- NOTE | 2023-11-29 16:21 | CM ---
Ty has decided not to pursue surgery on his back at this time. He will return home with his and family. [facility] and will provide service again. has requested RN, PT, OT, RN, COCKTAIL WAITRESS, (and ST if available
at home).
Plan: Discharge to home with [facility] and family support.
PCP: Miquel Purdy
Pharmacy: [facility]
--- NOTE | 2023-11-29 16:36 | VNURNOTE ---
[facility] referral completed in [facility] after review of chart.
== END 2023-11-29 17:05 | disposition home health service (06) | DRG 91 ==
LOC: 4 EAST ACU 06:04
PROVIDERS: Registered Nurse; ADMITTING PHYSICIAN Hospitalist; ATTENDING PHYSICIAN Hospitalist; CONSULT PHYSICIAN Psychiatry & Neurology Neurology; EMERGENCY PHYSICIAN Emergency Medicine; FAMILY PHYSICIAN Internal Medicine; OTHER PHYSICIAN Neurological Surgery
PROC: 0HQ1XZZ Repair Face Skin, External Approach (ICD-10-PCS; 2023-11-27)
DX: G95.29 Other cord compression (principal); I77.74 Dissection of vertebral artery; N18.4 Chronic kidney disease, stage 4 (severe); I42.9 Cardiomyopathy, unspecified; M47.12 Other spondylosis with myelopathy, cervical region; I69.351 Hemiplegia and hemiparesis following cerebral infarction affecting right dominant side; M50.021 Cervical disc disorder at C4-C5 level with myelopathy; I12.9 Hypertensive chronic kidney disease with stage 1 through stage 4 chronic kidney disease, or unspecified chronic kidney disease; S01.112A Laceration without foreign body of left eyelid and periocular area, initial encounter; R29.6 Repeated falls; M48.02 Spinal stenosis, cervical region; E78.00 Pure hypercholesterolemia, unspecified; M35.3 Polymyalgia rheumatica; M19.011 Primary osteoarthritis, right shoulder; G95.89 Other specified diseases of spinal cord; G47.30 Sleep apnea, unspecified; N40.0 Benign prostatic hyperplasia without lower urinary tract symptoms; G62.9 Polyneuropathy, unspecified; Z87.891 Personal history of nicotine dependence; W01.0XXA Fall on same level from slipping, tripping and stumbling without subsequent striking against object, initial encounter; Z79.899 Other long term (current) drug therapy; Z79.82 Long term (current) use of aspirin
CPT/HCPCS: 12011; 70450; 70551; 72141; 73030; 80048; 80061; 83036; 83735; 85025; 85027; 97116; 97162; 97167; 99285

== ENCOUNTER → 2023-12-16 10:03 | Outpatient (REF) | payer MEDICARE, SELFPAY | LOC: WOUND 10:03 | PROVIDERS: ATTENDING PHYSICIAN Surgery; FAMILY PHYSICIAN Internal Medicine | DX: S31.000A Unspecified open wound of lower back and pelvis without penetration into retroperitoneum, initial encounter (principal); L05.91 Pilonidal cyst without abscess; N18.4 Chronic kidney disease, stage 4 (severe); I10 Essential (primary) hypertension; G60.9 Hereditary and idiopathic neuropathy, unspecified; X58.XXXA Exposure to other specified factors, initial encounter | CPT/HCPCS: 99213 ==

== ENCOUNTER 2023-12-21 12:41 | Emergency (ER) | payer MEDICARE, SELFPAY ==
[2023-12-21 12:44] VITALS: BP 128/80
--- NOTE | 2023-12-21 13:27 | ED.GENMED ---
History of Present Illness
General
Chief Complaint: Musculo-Skeletal Complaint
Source: patient and spouse
Exam Limitations: none
Time Seen by Provider: 12/21/23 13:06
Nursing documentation reviewed up to this point in time: agreed with
History of Present Illness
History of Present Illness:
Patient and spouse report they are here today for severe neck pain since tuesday. He was inpatient here 11/28 following multiple falls at home, worsening neuropathy of BLE. MRI reveals severe spinal coud compression and central canal stenosis at
c3/4 andc4/5. 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 Neurosurgey consulted with patient and options of surgery for his Cspine stenosis vs PT were discussed. Patient and family
decided against surgery and he was discharged home. He continues to have frequent falls at home. As of Tuesday he developed severe Cspine pain. reports that he is increasingly weak and is sleeping most of day. Poor appetite. He was seen
by Dr. Melissa today and was sent to ED for work up of his fatigue and lethargy. His only complaint today is regarding his neck pain. states they both had'a cold' over the past week'. No fever/chills.
Past History
Past History
ED Past Medical History: CVA, HTN, Hypercholesterolemia and Other (Pilonidal cyst)
ED Past Surgical History: Orthopedic (Right rotator cuff, bilateral carpal tunnel)
Social History
Tobacco: Former smoker
Alcohol: None
Drug: None
Personal:
Living: with family
Review of Systems
Review of Systems
Allergies reviewed?: Yes
All Other Systems: ROS reviewed and negative except as documented in HPI and ROS
Constitutional: Reports fatigue
EENT: Reports no symptoms
Respiratory: Reports no symptoms
Cardiac: Reports no symptoms
ABD/GI: Reports other (decreased appetite)
: Reports no symptoms
Musculoskeletal: Reports neck pain (chronic)
Skin: Reports no symptoms
Neurological: Reports weakness
Psychiatric: Reports no symptoms
Phy Exam
General Physical Exam
General Presentation: well appearing and mild distress
General age: appears stated age
General Skin: warm and dry
General Habitus: normal
General Mental: alert
General Hydration: appears well hydrated
Cardiovascular Exam
Cardiovascular Exam: regular rate/rhythm and no edema
Pulmonary Exam
Pulmonary Exam: lungs clear, no respiratory distress and chest non tender
Gastrointestinal Exam
Gastrointestinal Exam: normal bowel sounds, non tender, soft and no organomegaly
Neurological Exam
Neurological Exam: alert, oriented x3, CN II-XII intact, no motor deficits, no sensory deficits and speech normal
Musculoskeletal Exam
Musculoskeletal Exam: neuro vasc intact and other (exacerbation of chronic neck pain, relieved with IV dilaudid. )
Skin Exam
Skin Exam: normal color, warm/dry and no rash
Psychiatric Exam
Psychiatric Exam: normal mood/affect
Course
Orders/Labs/Results
Orders:
Orders
12/21/23 13:14
CR Chest - 2 Views Urgent
Comment:
Reason For Exam: weakness, lethargy
12/21/23 13:15
HYDROmorphone [Dilaudid] 0.25 mg IV NOW STA
Ondansetron Injectable [Zofran] 4 mg IV NOW STA
12/21/23 13:16
0.9% Sodium Chloride 500 ml [Nss] 500 ml IV BOLUS
12/21/23 13:34
CT Head W/o Iv Contrast Urgent
Comment:
Reason For Exam: fall
Cervical Spine wo Contrast CT [CT Cervical Spine W/o Iv Contr] Urgent
Comment:
Reason For Exam: fall
12/21/23 13:41
Complete Blood Count/With Diff Urgent
Comprehensive Metabolic Panel Urgent
12/21/23 16:38
Urinalysis Reflex To Culture Urgent
Date Specimen was Collected: 12/21/23
Time Specimen was Collected: 16:34
Urine Microscopic Reflex Cult Urgent
Abnormal Lab Results
12/21/23 12/21/23
13:41 16:38
RBC 3.90 L 10^6/uL
(4.70-6.10)
Hgb 12.5 L g/dL
(13.0-18.0)
Hct 36.4 L %
(39.0-52.0)
MCH 32.1 H pg
(27.0-31.0)
Plt Count 115 L 10^3/uL
(130-400)
MPV 10.7 H fL
(7.4-10.4)
Absolute Lymphs (auto) 0.9 L 10^3/uL
(1.2-3.4)
Neutrophils % 79.9 H %
(42.2-75.2)
Lymphocytes % 11.5 L %
(20.5-51.1)
BUN 69 H mg/dl
(9-20)
Creatinine 2.9 H mg/dL
(0.7-1.3)
Glucose 111 H mg/dl
(70-99)
Total Protein 5.8 L g/dl
(6.3-8.2)
Albumin 3.4 L g/dl
(3.5-5.0)
Urine Ketones Trace A
(Negative)
Ur Occult Blood Reflex 1+ A
(Negative)
Urine RBC 3-6 A /HPF
(0-2)
Urine Bacteria (Reflex) Few A
(Negative)
12/21/23 13:41
12/21/23 13:41
Vital Signs
Initial and Last Documented VS:
Initial Vital Signs
Temp Pulse Resp BP Pulse Ox
97.4 F 77 18 128/80 95
12/21/23 12:44 12/21/23 12:44 12/21/23 12:44 12/21/23 12:44 12/21/23 12:44
Last Documented Vital Signs
Temp Pulse Resp BP Pulse Ox
98.3 F 74 16 112/67 94
12/21/23 17:17 12/21/23 17:17 12/21/23 17:17 12/21/23 17:17 12/21/23 17:17
*Radiology
Radiology exam reviewed: radiology read reviewed
*Pulse Oximetry
Patient hypoxic: no
*Critical Care Note
Total Time (30-74mins, 75-104mins- exclusive of procedures): Not Applicable
ED Attending Note
-
Portions of this chart may have been created with voice recognition software.� Occasional wrong word or��sound alike� substitutions may have occurred due to the inherent limitations of voice recognition software.
Discharge Plan
Departure
Patient Disposition: Home (Routine Discharge)
Date of Disposition: 12/21/23
Time of Disposition: 17:48
Patient with high blood pressure during this ER visit?: No
Condition: Good
Covid-19: Not Applicable
Discharge Problem:
Neck pain
Instructions: Chronic Neck Pain (DC)
Prescriptions:
New
oxycodone 5 mg capsule
5 mg PO BID PRN (Reason: Pain) Qty: 10 0RF
No Action
simvastatin 20 MG tablet
20 mg PO DAILY
tamsulosin 0.4 mg Capsule
0.8 mg PO HS
aspirin 81 mg Tablet,Chewable
81 mg PO DAILY
hydrochlorothiazide 12.5 mg Tablet
12.5 mg PO Q48H
ferrous sulfate 325 mg (65 mg iron) Tablet
325 mg PO DAILY
amlodipine 5 mg tablet
5 mg PO BID
metoprolol succinate 25 mg Tablet Extended Release 24 Hr
12.5 mg PO DAILY
polyethylene glycol 3350 [HealthyLax] 17 gram Powder In Packet
17 g PO DAILYPRN PRN (Reason: Constipation) Qty: 0 0RF
cyanocobalamin (vitamin B-12) 1,000 mcg Tablet
1,000 mcg PO DAILY Qty: 0 0RF
prednisone 10 mg Tablet
See Rx Instructions .ROUTE .COMPLEX Qty: 45 0RF
Rx Instructions:
Take By Mouth:
50 mg daily x3 days, 40 mg daily x3 days,
30 mg daily x3 days, 20 mg daily x3 days,
10 mg daily x3 days
Referrals:
Lane Purdy MD [Family Provider] -
Aparna Yip MD [Active] - Call in 1-3 days for appt
Interventions
Interventions:
*Risk Screen - Suicide Last Done: 12/21/23 16:20
*General Assessment Last Done: 12/21/23 13:45
*Neglect/Abuse Screening Last Done: 12/21/23 16:20
*Nursing Disposition Last Done: 12/21/23 18:02
ED-Musculoskeletal Assessment Last Done: 12/21/23 13:45
Discharge Date and Time
Discharge Date/Time: 12/21/23 18:05
Print Language: ITALIAN
[2023-12-21] MEDS: NSS 500 IV (13:42)
[2023-12-21] MEDS: DILAUDID 0.25 MG IV (13:47)
[2023-12-21] MEDS: ZOFRAN 4 MG IV (13:47)
[2023-12-21 13:56] LABS: % Basophils 0.3 % (0-2); % Eosinophils 2.4 % (0-6); % Immature Granulocytes 0.3 % (0-0.5); % Lymphocytes 11.5 % (20.5-51.1); % Monocytes 5.6 % (1.7-9.3); % Neutrophils 79.9 % (42.2-75.2); Absolute Eosinophils 0.2 10^3/uL (0-0.7); Absolute Lymphocytes 0.9 10^3/uL (1.2-3.4); Absolute Monocytes 0.4 10^3/uL (0.1-0.6); Absolute Neutrophils 6.1 10^3/uL (1.4-6.5); Hematocrit 36.4 % (39.0-52.0); Hemoglobin 12.5 g/dL (13.0-18.0); Mean Corp Hgb Conc. 34.3 g/dL (33.0-37.0); Mean Corpuscular Hgb 32.1 pg (27.0-31.0); Mean Corpuscular Volume 93.3 fL (80.0-94.0); Mean Platelet Volume 10.7 fL (7.4-10.4); Nucleated Red Blood Cells % 0 % (-); Platelet Count 115 10^3/uL (130-400); Red Cell Dist. Width 13.2 % (11.5-14.5); White Blood Cell Count 7.6 10^3/uL (4.8-10.8)
[2023-12-21 14:15] LABS: ALT (SGPT) 14 U/L (0-50); AST (SGOT) 20 U/L (17-59); Albumin 3.4 g/dl (3.5-5.0); Alkaline Phosphatase 69 U/L (38-126); Blood Urea Nitrogen 69 mg/dl (9-20); Carbon Dioxide 26 mmol/L (22-30); Potassium 4.2 mmol/L (3.5-5.1); Sodium 137 mmol/L (135-145); Total Bilirubin 0.7 mg/dl (0.2-1.3); Total Protein 5.8 g/dl (6.3-8.2); eGFR 20.17
[2023-12-21 14:25] LABS: Calcium 9.1 mg/dl (8.4-10.2); Chloride 105 mmol/L (98-107); Glucose 111 mg/dl (70-99)
[2023-12-21 16:49] LABS: Urine Albumin Trace (Neg - Trace); Urine Bilirubin Negative (Negative); Urine Character Clear (Clear); Urine Color Yellow; Urine Glucose Negative (Negative); Urine Ketone Trace (Negative); Urine Leukocyte Negative (Negative); Urine Nitrite Negative (Negative); Urine Occult Blood 1+ (Negative); Urine Urobilinogen Negative (Neg - 1+)
[2023-12-21 16:59] LABS: Urine Bacteria Few (Negative); Urine White Cell 0-2 /HPF (0-5)
[2023-12-21 17:17] VITALS: BP 112/67
== END 2023-12-21 18:05 | disposition home or self-care (01) ==
LOC: EMR 12:41
PROVIDERS: Nurse Practitioner; EMERGENCY PHYSICIAN Emergency Medicine; FAMILY PHYSICIAN Internal Medicine
DX: M54.2 Cervicalgia (principal); R53.1 Weakness; R63.0 Anorexia; R53.83 Other fatigue; G62.9 Polyneuropathy, unspecified; I10 Essential (primary) hypertension; E78.00 Pure hypercholesterolemia, unspecified; R29.6 Repeated falls; Z86.73 Personal history of transient ischemic attack (TIA), and cerebral infarction without residual deficits; Z87.891 Personal history of nicotine dependence; Z79.82 Long term (current) use of aspirin; Z91.030 Bee allergy status
CPT/HCPCS: 99285; 96374; 96375; 96361; 70450; 71046; 72125; 80053; 81003; 81015; 85025

== ENCOUNTER → 2024-01-13 12:35 | Outpatient (REF) | payer MEDICARE, SELFPAY | LOC: WOUND 12:35 | PROVIDERS: ATTENDING PHYSICIAN Surgery; FAMILY PHYSICIAN Internal Medicine | DX: S31.000A Unspecified open wound of lower back and pelvis without penetration into retroperitoneum, initial encounter (principal); L05.91 Pilonidal cyst without abscess; N18.4 Chronic kidney disease, stage 4 (severe); I10 Essential (primary) hypertension; G60.9 Hereditary and idiopathic neuropathy, unspecified; X58.XXXA Exposure to other specified factors, initial encounter; I12.9 Hypertensive chronic kidney disease with stage 1 through stage 4 chronic kidney disease, or unspecified chronic kidney disease | CPT/HCPCS: 99213 ==

== ENCOUNTER 2024-02-15 11:37 | Emergency (ER) | payer MEDICARE, SELFPAY ==
[2024-02-15 11:44] VITALS: BP 123/79
[2024-02-15 12:58] VITALS: BP 135/105
[2024-02-15 13:04] VITALS: BMI 20.1
--- NOTE | 2024-02-15 13:14 | ED.GENMED ---
History of Present Illness
<Evelia Frazier PA-C - Last Filed: 02/15/24 18:26>
General
Chief Complaint: Abdominal Symptoms
Source: patient and significant other
Exam Limitations: none
Time Seen by Provider: 02/15/24 12:52
Nursing documentation reviewed up to this point in time: agreed with
History of Present Illness
History of Present Illness:
pt is a 88 y/o M
1 mo post op spine fusion (cervical) dr. cowart at [facility]
has had ongoign constipation issues
was on iron which was stopped 1 week ago
on colace, miralax, and without good bm in 5 days
then given milk of mag this am
attempted disimpaction but was unable to remove it all
pt has black stool thoguht to be due to iron
belly pain comes in waves, 'with peristalsis'
no vomiting, fever, chills, weaknesss
urinating ok
Past History
<Evelia Frazier PA-C - Last Filed: 02/15/24 18:26>
Past History
ED Past Medical History: CVA, HTN, Hypercholesterolemia and Other (Pilonidal cyst)
ED Past Surgical History: Orthopedic (Right rotator cuff, bilateral carpal tunnel)
Social History
Tobacco: Former smoker
Alcohol: None
Drug: None
Personal:
Living: with family
Review of Systems
<Evelia Frazier PA-C - Last Filed: 02/15/24 18:26>
Review of Systems
Allergies reviewed?: Yes
All Other Systems: Not applicable
Phy Exam
<YUSRA Colby Last Filed: 02/15/24 18:26>
Physical Exam
Physical Exam:
GENERAL: Alert , in no apparent distress
EYE: pupils equal and reactive
NECK: In cervical collar
ENT: o/p clr, mmm.
CARDIAC: Regular rate and rhythm .
LUNGS: Clear breath sounds bilaterally, no acute respiratory distress, no wheezes/rales/rhonchi
ABDOMEN: Soft, without focal tenderness, no r/g, no cvat, normal bowel sounds
External nonbleeding hemorrhoid
Large amount of black stool in the vault disimpacted
NEUROLOGICAL: Alert and oriented, no focal neuro deficits
SKIN: Warm and dry, skin intact.
MUSCULOSKELETAL: No edema, well perfused. neg kareen's sign
PSYCH: Normal and appropriate interaction.
Course
<Evelia Frazier PA-C - Last Filed: 02/15/24 18:26>
Orders/Labs/Results
Orders:
Orders
02/15/24 13:08
Abdominal Series [CR Obstruct Series W/pa Chest] Urgent
Comment:
Reason For Exam: constipation
02/15/24 14:58
Enema- Treatment ONCE
Type: Soap Suds
02/15/24 16:04
Viscous Lidocaine 2% [Xylocaine Viscous Cup] 15 ml S NOW STA
02/15/24 16:55
Magnesium Citrate [Citroma] 300 ml PO ONCE ONE
Vital Signs
Initial and Last Documented VS:
Initial Vital Signs
Temp Pulse Resp BP Pulse Ox
98.2 F 62 18 123/79 96
02/15/24 11:44 02/15/24 11:44 02/15/24 11:44 02/15/24 11:44 02/15/24 11:44
Last Documented Vital Signs
Temp Pulse Resp BP Pulse Ox
97.6 F 62 21 168/82 100
02/15/24 17:14 02/15/24 17:14 02/15/24 17:14 02/15/24 17:14 02/15/24 17:14
<Juan David Davenport MD - Last Filed: 02/15/24 16:04>
Orders/Labs/Results
Orders:
Orders
02/15/24 13:08
Abdominal Series [CR Obstruct Series W/pa Chest] Urgent
Comment:
Reason For Exam: constipation
02/15/24 14:58
Enema- Treatment ONCE
Type: Soap Suds
02/15/24 16:04
Viscous Lidocaine 2% [Xylocaine Viscous Cup] 15 ml S NOW STA
02/15/24 16:55
Magnesium Citrate [Citroma] 300 ml PO ONCE ONE
Vital Signs
Initial and Last Documented VS:
Initial Vital Signs
Temp Pulse Resp BP Pulse Ox
98.2 F 62 18 123/79 96
02/15/24 11:44 02/15/24 11:44 02/15/24 11:44 02/15/24 11:44 02/15/24 11:44
Last Documented Vital Signs
Temp Pulse Resp BP Pulse Ox
97.6 F 62 21 168/82 100
02/15/24 17:14 02/15/24 17:14 02/15/24 17:14 02/15/24 17:14 02/15/24 17:14
<Evelia Frazier PA-C - Last Filed: 02/15/24 18:26>
MDM/Problems Addressed
Differential Diagnosis Includes:
costipation, obstipatino, bowel lobstrution
MDM/Problems Addressed:
88 y/o M
h/o divertic, hemorrhoids, constipation
here with constipation x 1 week
has tried a few treatments
feels pressure but cannot evaucate
has had intermittent pain
on exam he had a significant fecal impaction that actually was quite easy to remove
no bleeding
we did get an xray indep reviewed , hsa still stool in colon
no obstruction
tried an enema but it just came out
however i attmepted disimpaction again but had no stool in vault
he says he feels singifcantly better
seen by ed attneding
agree with d/c home with miralax and mag citrate
return precautions.
<Evelia Frazier PA-C - Last Filed: 02/15/24 18:26>
*Critical Care Note
Total Time (30-74mins, 75-104mins- exclusive of procedures): Not Applicable
ED Attending Note
<Evelia Frazier PA-C - Last Filed: 02/15/24 18:26>
-
Portions of this chart may have been created with voice recognition software.� Occasional wrong word or��sound alike� substitutions may have occurred due to the inherent limitations of voice recognition software.
<Juan David Davenport MD - Last Filed: 02/15/24 16:04>
ED Attending Note
Patient seen and examined by attending physician: Yes
ED Attending Note:
I have seen and evaluated the patient with a hjts-ke-diga encounter. I have spoken to the advance practicer provider and involved in the medical history, the physical exam, medical decision making.
Evaluation and management service: agree unless noted differently below.
Results interpretation: agree unless noted differently below.
Focused HPI: 88-year-old male who was 2 weeks out from neck surgery presents for constipation. 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 Has been trying eops-nzq-dastion laxatives without improvement. No
abdominal pain. No vomiting. He has been on iron supplement for anemia recently which he believes is contributing.
Physical exam: Awake alert not in distress. Cervical collar in place. Vital signs normal. Abdomen nondistended. No vomiting. PA performed rectal exam�fecal impaction
Medical Decision Makin-year-old male presents with constipation 2 weeks status post neck surgery. Abdominal x-ray shows signs consistent with fecal impaction. PA disimpacted at bedside. Discharge on bowel regimen.
Discharge Plan
Departure
Patient Disposition: Home (Routine Discharge)
Date of Disposition: 02/15/24
Time of Disposition: 16:55
Patient with high blood pressure during this ER visit?: Yes
Condition: Fair
Covid-19: Not Applicable
Discharge Problem:
Constipation
Instructions: Constipation, Adult (DC)
Prescriptions:
No Action
simvastatin 20 MG tablet
20 mg PO DAILY
tamsulosin 0.4 mg Capsule
0.8 mg PO HS
aspirin 81 mg Tablet,Chewable
81 mg PO DAILY
hydrochlorothiazide 12.5 mg Tablet
12.5 mg PO Q48H
ferrous sulfate 325 mg (65 mg iron) Tablet
325 mg PO DAILY
amlodipine 5 mg tablet
5 mg PO BID
metoprolol succinate 25 mg Tablet Extended Release 24 Hr
12.5 mg PO DAILY
polyethylene glycol 3350 [HealthyLax] 17 gram Powder In Packet
17 g PO DAILYPRN PRN (Reason: Constipation) Qty: 0 0RF
cyanocobalamin (vitamin B-12) 1,000 mcg Tablet
1,000 mcg PO DAILY Qty: 0 0RF
prednisone 10 mg Tablet
See Rx Instructions .ROUTE .COMPLEX Qty: 45 0RF
Rx Instructions:
Take By Mouth:
50 mg daily x3 days, 40 mg daily x3 days,
30 mg daily x3 days, 20 mg daily x3 days,
10 mg daily x3 days
oxycodone 5 mg capsule
5 mg PO BID PRN (Reason: Pain) Qty: 10 0RF
Referrals:
Lane Purdy MD [Family Provider] -
Activity Restrictions/Additional Instructions:
YOU HAVE A LOT OF STOOL IN YOUR COLON BUT NO SIGNS OF BOWEL OBSTRUCTION
TAKE MIRALAX TWICE A DAY FOR 3 DAYS
YOU CAN ALSO USE MAGNESIUM CITRATE ONCE A DAY 150 ML today - WAIT 12 HOURS, IF NO STOOL THEN USE THE 150 ML TOMORROW
RETURN SEVERE PAIN, VOMITNIG, FEVER, ETC
Interventions
Interventions:
*Risk Screen - Suicide Last Done: 02/15/24 11:44
*General Assessment Last Done: 02/15/24 11:44
*Neglect/Abuse Screening Last Done: 02/15/24 11:44
ED- Fall Risk Assessment Last Done: 02/15/24 16:30
*ED COVID-19 Vaccine History Last Done: 02/15/24 13:04
*Nursing Disposition Last Done: 02/15/24 17:14
[place]-Eabxfn-Nxfhqlwnar Assessment Last Done: 02/15/24 13:05
Discharge Date and Time
Discharge Date/Time: 02/15/24 17:14
Print Language: MACEDONIAN
[2024-02-15 15:03] VITALS: BP 157/89
[2024-02-15] MEDS: XYLOCAINE VISCOUS CUP 15 ML S (16:09)
[2024-02-15 16:57] VITALS: BP 174/90
[2024-02-15 17:14] VITALS: BP 168/82
== END 2024-02-15 17:14 | disposition home or self-care (01) ==
LOC: EMR 11:37
PROVIDERS: EMERGENCY PHYSICIAN Emergency Medicine; FAMILY PHYSICIAN Internal Medicine
DX: K59.00 Constipation, unspecified (principal); I10 Essential (primary) hypertension; E78.00 Pure hypercholesterolemia, unspecified; Z86.73 Personal history of transient ischemic attack (TIA), and cerebral infarction without residual deficits; Z87.19 Personal history of other diseases of the digestive system; Z87.891 Personal history of nicotine dependence; Z98.1 Arthrodesis status
CPT/HCPCS: 99283; 74022

== ENCOUNTER → 2024-02-17 13:41 | Outpatient (REF) | payer MEDICARE, SELFPAY | LOC: WOUND 13:41 | PROVIDERS: ATTENDING PHYSICIAN Surgery; FAMILY PHYSICIAN Internal Medicine | DX: S31.000A Unspecified open wound of lower back and pelvis without penetration into retroperitoneum, initial encounter (principal); L05.91 Pilonidal cyst without abscess; N18.4 Chronic kidney disease, stage 4 (severe); I10 Essential (primary) hypertension; G60.9 Hereditary and idiopathic neuropathy, unspecified; X58.XXXA Exposure to other specified factors, initial encounter | CPT/HCPCS: 99213 ==

== ENCOUNTER → 2024-02-21 08:44 | Outpatient (REF) | payer MEDICARE, SELFPAY ==
[2024-02-21 10:03] LABS: % Basophils 1.1 % (0-2); % Eosinophils 3.2 % (0-6); % Immature Granulocytes 0.2 % (0-0.5); % Lymphocytes 28.6 % (20.5-51.1); % Monocytes 6.5 % (1.7-9.3); % Neutrophils 60.4 % (42.2-75.2); Absolute Basophils 0.1 10^3/uL (0-0.2); Absolute Eosinophils 0.3 10^3/uL (0-0.7); Absolute Lymphocytes 2.3 10^3/uL (1.2-3.4); Absolute Monocytes 0.5 10^3/uL (0.1-0.6); Absolute Neutrophils 4.9 10^3/uL (1.4-6.5); Hematocrit 34.2 % (39.0-52.0); Hemoglobin 11.3 g/dL (13.0-18.0); Mean Corpuscular Hgb 31.9 pg (27.0-31.0); Mean Corpuscular Volume 96.6 fL (80.0-94.0); Mean Platelet Volume 10.7 fL (7.4-10.4); Nucleated Red Blood Cells % 0 % (-); Platelet Count 243 10^3/uL (130-400); Red Blood Cell Count 3.54 10^6/uL (4.70-6.10); Red Cell Dist. Width 13.5 % (11.5-14.5); Reticulocyte Count 2.1 % (0.4-2.8); White Blood Cell Count 8.1 10^3/uL (4.8-10.8)
[2024-02-21 10:43] LABS: ALT (SGPT) 10 U/L (0-50); AST (SGOT) 17 U/L (17-59); Albumin 3.9 g/dl (3.5-5.0); Alkaline Phosphatase 82 U/L (38-126); Blood Urea Nitrogen 50 mg/dl (9-20); Calcium 10.4 mg/dl (8.4-10.2); Carbon Dioxide 28 mmol/L (22-30); Chloride 102 mmol/L (98-107); Glucose 95 mg/dl (70-99); Iron 88 ug/dl (49-181); Potassium 4.1 mmol/L (3.5-5.1); Sodium 141 mmol/L (135-145); Total Bilirubin 0.7 mg/dl (0.2-1.3); Total Protein 6.3 g/dl (6.3-8.2); eGFR 21.04
[2024-02-21 10:53] LABS: Percent Saturation 38 % (20-50); Total Iron Binding Capacity 228 ug/dl (261-462)
== END ==
LOC: REG 08:44
PROVIDERS: ATTENDING PHYSICIAN Internal Medicine
DX: G95.9 Disease of spinal cord, unspecified (principal); N18.4 Chronic kidney disease, stage 4 (severe); N40.1 Benign prostatic hyperplasia with lower urinary tract symptoms; E78.00 Pure hypercholesterolemia, unspecified; D63.8 Anemia in other chronic diseases classified elsewhere; Z86.73 Personal history of transient ischemic attack (TIA), and cerebral infarction without residual deficits; Z09 Encounter for follow-up examination after completed treatment for conditions other than malignant neoplasm
CPT/HCPCS: 36415; 80053; 82728; 83540; 83550; 85025; 85045

== ENCOUNTER 2024-02-22 17:23 | Emergency (ER) | payer MEDICARE, SELFPAY ==
[2024-02-22 17:29] VITALS: BP 160/88
[2024-02-22 18:30] VITALS: BP 161/90
[2024-02-22 18:31] VITALS: BP 161/90
--- NOTE | 2024-02-22 18:31 | ED.GENMED ---
History of Present Illness
General
Chief Complaint: Fall
Source: patient and spouse
Exam Limitations: none
Time Seen by Provider: 02/22/24 18:05
History of Present Illness
History of Present Illness:
This is a 88 year old male that comes in with c/o fall. states that earlier today he used his walker and went up three steps and he didn't have any trouble. States that he was going up 2 steps to the back porch and she took his walker so he
could grab the hand real. States that he missed the rail and went down his face and left shoulder. States that there was no LOC. Patient states that he hit the left sided of his face. Patient is wearing a cervical neck brace as he recently had a
Discectomy. Denies any fever, chills, chest pain, SOB, abd pain, nausea, vomiting, diarrhea, headache, dizziness, urinary burning.
Past History
Past History
ED Past Medical History: CVA, HTN, Hypercholesterolemia and Other (Pilonidal cyst, Balance issues, Sleep apnea, Diverticulitis, urinary frequency )
ED Past Surgical History: Orthopedic (Right and left rotator cuff, bilateral carpal tunnel, Neck surgery)
Social History
Tobacco: Former smoker
Alcohol: Occasional
Drug: None
Personal:
Living: with family
Review of Systems
Review of Systems
All Other Systems: ROS reviewed and negative except as documented in HPI and ROS
Constitutional: Reports no symptoms; Denies fever or chills
EENT: Reports no symptoms
Respiratory: Reports no symptoms; Denies cough or trouble breathing
Cardiac: Reports no symptoms; Denies chest pain
ABD/GI: Reports no symptoms; Denies abdominal pain, nausea, vomiting or diarrhea
: Reports no symptoms; Denies dysuria, frequency or urgency
Musculoskeletal: Reports no symptoms
Skin: Reports other (Abrasion to the left sided of the face and superficial laceration)
Neurological: Denies dizzy or headache
Psychiatric: Reports no symptoms
Phy Exam
General Physical Exam
General Presentation: no apparent distress
General age: appears stated age
General Skin: warm and dry
General Habitus: elderly
General Mental: alert
General Hydration: appears well hydrated
ENT Exam
ENT Exam: TM's normal and pharynx normal
Eye Exam
Eye Exam: EOMI
Cardiovascular Exam
Cardiovascular Exam: regular rate/rhythm, no edema and normal peripheral pulses
Pulmonary Exam
Pulmonary Exam: lungs clear, no respiratory distress, no rales, chest non tender, no crackles, no rhonchi, no wheezing and no cough
Gastrointestinal Exam
Gastrointestinal Exam: normal bowel sounds, non tender, soft, no organomegaly, no pulsatile mass and non distended
Musculoskeletal Exam
Musculoskeletal Exam: full ROM and other (Negative for discomfort with crossing over, abduction. Flexion of the elbows, movement of wrist and fingers. negative shoulder tenderness with palpation. Negative spinal tenderness)
Skin Exam
Skin Exam: normal color, warm/dry, no rash and other (Skin tears to the left forearm and left sided of the face. Small superficial laceration to the left lateral eyebrow area)
Psychiatric Exam
Psychiatric Exam: normal mood/affect
Course
Orders/Labs/Results
Orders:
Orders
02/22/24 17:37
CT Head W/o Iv Contrast Urgent
Comment:
Reason For Exam: fall, head strike
02/22/24 18:34
CT Cervical Spine W/o Iv Contr Urgent
Comment:
Reason For Exam: Fall recent cervical surgery
Vital Signs
Initial and Last Documented VS:
Initial Vital Signs
Temp Pulse Resp BP Pulse Ox
97.9 F 65 18 160/88 95
02/22/24 17:29 02/22/24 17:29 02/22/24 17:29 02/22/24 17:29 02/22/24 17:29
Last Documented Vital Signs
Temp Pulse Resp BP Pulse Ox
97.9 F 61 18 155/84 99
02/22/24 17:29 02/22/24 18:30 02/22/24 17:29 02/22/24 19:00 02/22/24 19:22
Procedures
Laceration Closure
Left Face:
Status of Wound: clean
Description of Wound Edges: sharp
Preparation: cleaned with saline
Revision/Debridement: routine- no revision
Wound exploration: explored to base- no FB
Type of Closure: Dermabond-skin glue
MDM/Problems Addressed
Differential Diagnosis Includes:
Accidental fall,
MDM/Problems Addressed:
Patient was outside and went to go up 2 steps that he missed the hand rail and fell on his left sided of his face and shoulder. Denies any LOC.
will get CT head and cervical spine.
Back into see patient and . Explained that the CT of the head and neck is negative for any acute process. Patient to keep the steri strip dry for the next 24 hours and wash over the skin abrasion with wam soapy water. states that the VN
will be coming out on Tuesday. Patient to return with any concerns.
Chronic conditions affecting care:
CVA balance issues
Acute Exacerbation and/or Progression of Chronic Illness:
Balance issures
*Radiology
Radiology exam reviewed: radiology read reviewed (Ct head-NO acute intracranial abnormality noted Cervical spineNo acute frature of subluxation. )
*Pulse Oximetry
Patient hypoxic: no
*EKG
Interpreted by ED Provider?: NA
Rate: EKG- N/A
*Food Processing Plant Manager Interpretation
Rate: Food Processing [employer] Manager- N/A
*Critical Care Note
Total Time (30-74mins, 75-104mins- exclusive of procedures): Not Applicable
ED Attending Note
-
Portions of this chart may have been created with voice recognition software.� Occasional wrong word or��sound alike� substitutions may have occurred due to the inherent limitations of voice recognition software.
Discharge Plan
Departure
Patient Disposition: Home (Routine Discharge)
Date of Disposition: 02/22/24
Time of Disposition: 20:21
Patient with high blood pressure during this ER visit?: Yes
Condition: Good
Covid-19: Not Applicable
Discharge Problem:
Accidental fall, Abrasion of face, Skin tear of left forearm without complication
Instructions: Laceration Repair With Glue (DC), Preventing falls in adults, Skin Abrasions (DC), BLOOD PRESSURE
Prescriptions:
No Action
simvastatin 20 MG tablet
20 mg PO DAILY
tamsulosin 0.4 mg Capsule
0.8 mg PO HS
aspirin 81 mg Tablet,Chewable
81 mg PO DAILY
hydrochlorothiazide 12.5 mg Tablet
12.5 mg PO Q48H
ferrous sulfate 325 mg (65 mg iron) Tablet
325 mg PO DAILY
amlodipine 5 mg tablet
5 mg PO BID
metoprolol succinate 25 mg Tablet Extended Release 24 Hr
12.5 mg PO DAILY
polyethylene glycol 3350 [HealthyLax] 17 gram Powder In Packet
17 g PO DAILYPRN PRN (Reason: Constipation) Qty: 0 0RF
cyanocobalamin (vitamin B-12) 1,000 mcg Tablet
1,000 mcg PO DAILY Qty: 0 0RF
prednisone 10 mg Tablet
See Rx Instructions .ROUTE .COMPLEX Qty: 45 0RF
Rx Instructions:
Take By Mouth:
50 mg daily x3 days, 40 mg daily x3 days,
30 mg daily x3 days, 20 mg daily x3 days,
10 mg daily x3 days
oxycodone 5 mg capsule
5 mg PO BID PRN (Reason: Pain) Qty: 10 0RF
Referrals:
Lane Purdy MD [Family Provider] - Follow up in 5-7 days
Activity Restrictions/Additional Instructions:
As discussed the CT of the head and neck is negative for any acute process. Please keep the skin tears clean wth warm soapy water. Please keep the facial steri strips dry for the next 24 hours. After this you may gently pat them with warm soapy
water and they will fall off on there own in the next 7 days. Follow up with the family doctor for recheck. IF YOU HAVE ANY OTHER CONCERNS PLEASE RETURN TO THE EMEREGENCY ROOM.
Interventions
Interventions:
*Risk Screen - Suicide Last Done: 02/22/24 17:29
*General Assessment Last Done: 02/22/24 17:29
*Neglect/Abuse Screening Last Done: 02/22/24 18:30
ED- Fall Risk Assessment Last Done: 02/22/24 17:29
*ED COVID-19 Vaccine History Last Done: 02/22/24 17:29
ED-Musculoskeletal Assessment Last Done: 02/22/24 18:30
ED- Neurological Assessment Last Done: 02/22/24 18:30
ED-Skin Assessment Last Done: 02/22/24 18:30
Discharge Date and Time
Print Language: [place]IZ[place]
[2024-02-22 19:00] VITALS: BP 155/84
[2024-02-22 20:23] VITALS: BP 155/85
== END 2024-02-22 20:39 | disposition home or self-care (01) ==
LOC: EMR 17:23
PROVIDERS: EMERGENCY PHYSICIAN Emergency Medicine; FAMILY PHYSICIAN Internal Medicine
DX: S51.812A Laceration without foreign body of left forearm, initial encounter (principal); S01.112A Laceration without foreign body of left eyelid and periocular area, initial encounter; S00.81XA Abrasion of other part of head, initial encounter; W19.XXXA Unspecified fall, initial encounter; I10 Essential (primary) hypertension; E78.00 Pure hypercholesterolemia, unspecified; G47.30 Sleep apnea, unspecified; K57.92 Diverticulitis of intestine, part unspecified, without perforation or abscess without bleeding; Z79.82 Long term (current) use of aspirin; Z87.891 Personal history of nicotine dependence; Z86.73 Personal history of transient ischemic attack (TIA), and cerebral infarction without residual deficits; Z91.030 Bee allergy status
CPT/HCPCS: 99284; 12011; 70450; 72125

== ENCOUNTER 2024-03-06 12:45 | Outpatient (RCR) | payer MEDICARE, SELFPAY | END 2024-03-06 23:59 | disposition home or self-care (01) | LOC: RPT 12:45 | PROVIDERS: ATTENDING PHYSICIAN Internal Medicine | DX: Z47.89 Encounter for other orthopedic aftercare (principal); R26.89 Other abnormalities of gait and mobility; Z73.6 Limitation of activities due to disability; R26.2 Difficulty in walking, not elsewhere classified; M62.81 Muscle weakness (generalized); M43.22 Fusion of spine, cervical region | CPT/HCPCS: 97110; 97163; 97530 ==

== ENCOUNTER 2024-04-11 14:47 | Outpatient (RCR) | payer MEDICARE, SELFPAY | END 2024-04-11 23:59 | disposition home or self-care (01) | LOC: ROT 14:47 | PROVIDERS: ATTENDING PHYSICIAN Internal Medicine | DX: Z47.89 Encounter for other orthopedic aftercare (principal); R26.89 Other abnormalities of gait and mobility; M48.02 Spinal stenosis, cervical region; M47.12 Other spondylosis with myelopathy, cervical region; Z73.6 Limitation of activities due to disability; R26.2 Difficulty in walking, not elsewhere classified; M62.81 Muscle weakness (generalized); M43.22 Fusion of spine, cervical region | CPT/HCPCS: 97110; 97112; 97167; 97530; 97535 ==

== ENCOUNTER → 2024-04-16 08:50 | Outpatient (REF) | payer MEDICARE, SELFPAY | LOC: RAD 08:50 | PROVIDERS: ATTENDING PHYSICIAN Physician Assistant Medical; FAMILY PHYSICIAN Internal Medicine | DX: Z98.1 Arthrodesis status (principal); M47.12 Other spondylosis with myelopathy, cervical region; Z09 Encounter for follow-up examination after completed treatment for conditions other than malignant neoplasm | CPT/HCPCS: 72040 ==

== ENCOUNTER → 2024-04-27 14:16 | Outpatient (REF) | payer MEDICARE, SELFPAY | LOC: WOUND 14:16 | PROVIDERS: ATTENDING PHYSICIAN Surgery; FAMILY PHYSICIAN Internal Medicine | DX: S31.000A Unspecified open wound of lower back and pelvis without penetration into retroperitoneum, initial encounter (principal); X58.XXXA Exposure to other specified factors, initial encounter; L05.91 Pilonidal cyst without abscess; N18.4 Chronic kidney disease, stage 4 (severe); G60.9 Hereditary and idiopathic neuropathy, unspecified | CPT/HCPCS: 99213 ==

== ENCOUNTER 2024-05-08 11:54 | Outpatient (RCR) | payer MEDICARE, SELFPAY | END 2024-05-08 23:59 | disposition home or self-care (01) | LOC: ROT 11:54 | PROVIDERS: ATTENDING PHYSICIAN Internal Medicine | DX: R26.89 Other abnormalities of gait and mobility (principal); R47.89 Other speech disturbances (principal); Z47.89 Encounter for other orthopedic aftercare (principal); M48.02 Spinal stenosis, cervical region; M47.12 Other spondylosis with myelopathy, cervical region; Z73.6 Limitation of activities due to disability; M62.81 Muscle weakness (generalized); M43.22 Fusion of spine, cervical region; R29.6 Repeated falls | CPT/HCPCS: 97110; 97112; 97116; 97530; 97535 ==

== ENCOUNTER → 2024-05-25 13:09 | Outpatient (REF) | payer MEDICARE, SELFPAY | LOC: WOUND 13:09 | PROVIDERS: ATTENDING PHYSICIAN Surgery; FAMILY PHYSICIAN Internal Medicine | DX: S31.000A Unspecified open wound of lower back and pelvis without penetration into retroperitoneum, initial encounter (principal); L05.91 Pilonidal cyst without abscess; N18.4 Chronic kidney disease, stage 4 (severe); G60.9 Hereditary and idiopathic neuropathy, unspecified; I12.9 Hypertensive chronic kidney disease with stage 1 through stage 4 chronic kidney disease, or unspecified chronic kidney disease; X58.XXXA Exposure to other specified factors, initial encounter | CPT/HCPCS: 99213 ==

== ENCOUNTER 2024-05-29 12:53 | Outpatient (RCR) | payer MEDICARE, SELFPAY | END 2024-05-29 23:59 | disposition home or self-care (01) | LOC: ROT 12:53 | PROVIDERS: ATTENDING PHYSICIAN Internal Medicine | DX: Z47.89 Encounter for other orthopedic aftercare (principal); R26.89 Other abnormalities of gait and mobility; R47.89 Other speech disturbances; M48.02 Spinal stenosis, cervical region; M47.12 Other spondylosis with myelopathy, cervical region; Z73.6 Limitation of activities due to disability; R26.2 Difficulty in walking, not elsewhere classified; M43.22 Fusion of spine, cervical region; M62.81 Muscle weakness (generalized); R29.6 Repeated falls | CPT/HCPCS: 97110; 97112; 97116; 97530; 97535 ==

== ENCOUNTER 2024-05-31 14:02 | Emergency (ER) | payer MEDICARE, SELFPAY ==
[2024-05-31 14:15] VITALS: BP 137/81
--- NOTE | 2024-05-31 14:25 | ED.GENMED ---
ED Provider Triage
<Annel Muñoz PA-C - Last Filed: 06/01/24 10:04>
-
Patient seen by provider in Triage?: Seen in Triage
Attestation: A medical screening examination has been initiated by a qualified medical provider. Based on the assessment performed at this time, it has been determined that an emergent medical condition may exist and the patient has been informed
that further medical evaluation and possible additional diagnostic testing may be needed.
HPI: 88yoM here with n/v/d that began at midnight last night. Last episode around 8pm. No abd pain or fevers.
GENERAL: Alert , in no apparent distress
EYE: No visual abnormalities.
NECK: Trachea midline
ENT: No visible abnormalities.
LUNGS: No acute respiratory distress
NEUROLOGICAL: Alert and oriented
SKIN: Skin intact. No visible changes.
MUSCULOSKELETAL: Moving extremities normally
PSYCH: Normal and appropriate interaction.
This is a medical evaluation conducted in person to initiate diagnostic evaluation and provide initial therapeutics. Please see further documentation by the treating clinician.
Abdominal labs and magnesium ordered.
History of Present Illness
<Annel Muñoz PA-C - Last Filed: 06/01/24 10:04>
General
Chief Complaint: Abdominal Symptoms
Time Seen by Provider: 05/31/24 16:22
<Tatiana Jones NP - Last Filed: 06/01/24 23:45>
General
Source: patient and spouse
Exam Limitations: none
Nursing documentation reviewed up to this point in time: agreed with
History of Present Illness
History of Present Illness:
reports patient with n/v/d x 24 hours Concerned for dehydration. He denies any abdominal pain. No fever/chilles. Brought to ED by spouse for aristeo.
Past History
<Annel Muñoz PA-C - Last Filed: 06/01/24 10:04>
Past History
ED Past Medical History: CVA, HTN, Hypercholesterolemia and Other (Pilonidal cyst, Balance issues, Sleep apnea, Diverticulitis, urinary frequency )
ED Past Surgical History: Orthopedic (Right and left rotator cuff, bilateral carpal tunnel, Neck surgery)
Social History
Tobacco: Former smoker
Alcohol: Occasional
Drug: None
Personal:
Living: with family
Review of Systems
<Tatiana Jones NP - Last Filed: 06/01/24 23:45>
Review of Systems
Allergies reviewed?: Yes
All Other Systems: ROS reviewed and negative except as documented in HPI and ROS
Constitutional: Reports no symptoms
EENT: Reports no symptoms
Respiratory: Reports no symptoms
Cardiac: Reports no symptoms
ABD/GI: Reports nausea, vomiting (overnight) and diarrhea (overnight)
: Reports no symptoms
Musculoskeletal: Reports no symptoms
Skin: Reports no symptoms
Neurological: Reports no symptoms
Psychiatric: Reports no symptoms
Phy Exam
<Tatiana Jones NP - Last Filed: 06/01/24 23:45>
General Physical Exam
General Presentation: well appearing and no apparent distress
General age: appears stated age
General Skin: warm and dry
General Habitus: normal
General Mental: alert
Cardiovascular Exam
Cardiovascular Exam: regular rate/rhythm and no edema
Pulmonary Exam
Pulmonary Exam: lungs clear, no respiratory distress and chest non tender
Gastrointestinal Exam
Gastrointestinal Exam: normal bowel sounds, non tender, soft, no organomegaly, no pulsatile mass, non distended and no cva tenderness
Musculoskeletal Exam
Musculoskeletal Exam: full ROM and neuro vasc intact
Skin Exam
Skin Exam: normal color, warm/dry and no rash
Psychiatric Exam
Psychiatric Exam: normal mood/affect
Course
<Annel Muñoz PA-C - Last Filed: 06/01/24 10:04>
Orders/Labs/Results
Orders:
Orders
05/31/24 14:18
Electrocardiogram (*1) Urgent
Reason for Study: Abdominal Pain
EKG- Treatment ONCE
05/31/24 14:39
CMP [Comprehensive Metabolic Panel] Urgent
Lipase Urgent
Magnesium Urgent
05/31/24 16:29
0.9% Sodium Chloride 500 ml [Nss] 500 ml IV BOLUS
Ondansetron Injectable [Zofran] 4 mg IV NOW STA
05/31/24 16:50
Complete Blood Count/With Diff Urgent
05/31/24 18:14
Urinalysis Reflex To Culture Urgent
Date Specimen was Collected: 05/31/24
Time Specimen was Collected: 18:13
Urine Microscopic Reflex Cult Urgent
Abnormal Lab Results
05/31/24 05/31/24 05/31/24
14:39 16:50 18:14
RBC 4.33 L 10^6/uL
(4.70-6.10)
MPV 10.8 H fL
(7.4-10.4)
Absolute Neuts (auto) 7.9 H 10^3/uL
(1.4-6.5)
Absolute Lymphs (auto) 0.4 L 10^3/uL
(1.2-3.4)
Neutrophils % 91.8 H %
(42.2-75.2)
Lymphocytes % 4.4 L %
(20.5-51.1)
BUN 78 H mg/dl
(9-20)
Creatinine 2.9 H mg/dL
(0.7-1.3)
Glucose 151 H mg/dl
(70-99)
Magnesium 2.4 H mg/dl
(1.6-2.3)
Ur Occult Blood Reflex 1+ A
(Negative)
Urine RBC 3-6 A /HPF
(0-2)
Urine Albumin (Reflex) 1+ A
(Neg - Trace)
05/31/24 16:50
05/31/24 14:39
Vital Signs
Initial and Last Documented VS:
Initial Vital Signs
Temp Pulse Resp BP Pulse Ox
98.2 F 82 16 137/81 98
05/31/24 14:15 05/31/24 14:15 05/31/24 14:15 05/31/24 14:15 05/31/24 14:15
Last Documented Vital Signs
Temp Pulse Resp BP Pulse Ox
98.2 F 82 16 155/97 98
05/31/24 14:15 05/31/24 14:15 05/31/24 18:00 05/31/24 18:32 05/31/24 18:00
<Tatiana Jones NP - Last Filed: 06/01/24 23:45>
Orders/Labs/Results
Orders:
Orders
05/31/24 14:18
Electrocardiogram (*1) Urgent
Reason for Study: Abdominal Pain
EKG- Treatment ONCE
05/31/24 14:39
CMP [Comprehensive Metabolic Panel] Urgent
Lipase Urgent
Magnesium Urgent
05/31/24 16:29
0.9% Sodium Chloride 500 ml [Nss] 500 ml IV BOLUS
Ondansetron Injectable [Zofran] 4 mg IV NOW STA
05/31/24 16:50
Complete Blood Count/With Diff Urgent
05/31/24 18:14
Urinalysis Reflex To Culture Urgent
Date Specimen was Collected: 05/31/24
Time Specimen was Collected: 18:13
Urine Microscopic Reflex Cult Urgent
Abnormal Lab Results
05/31/24 05/31/24 05/31/24
14:39 16:50 18:14
RBC 4.33 L 10^6/uL
(4.70-6.10)
MPV 10.8 H fL
(7.4-10.4)
Absolute Neuts (auto) 7.9 H 10^3/uL
(1.4-6.5)
Absolute Lymphs (auto) 0.4 L 10^3/uL
(1.2-3.4)
Neutrophils % 91.8 H %
(42.2-75.2)
Lymphocytes % 4.4 L %
(20.5-51.1)
BUN 78 H mg/dl
(9-20)
Creatinine 2.9 H mg/dL
(0.7-1.3)
Glucose 151 H mg/dl
(70-99)
Magnesium 2.4 H mg/dl
(1.6-2.3)
Ur Occult Blood Reflex 1+ A
(Negative)
Urine RBC 3-6 A /HPF
(0-2)
Urine Albumin (Reflex) 1+ A
(Neg - Trace)
05/31/24 16:50
05/31/24 14:39
Vital Signs
Initial and Last Documented VS:
Initial Vital Signs
Temp Pulse Resp BP Pulse Ox
98.2 F 82 16 137/81 98
05/31/24 14:15 05/31/24 14:15 05/31/24 14:15 05/31/24 14:15 05/31/24 14:15
Last Documented Vital Signs
Temp Pulse Resp BP Pulse Ox
98.2 F 82 16 155/97 98
05/31/24 14:15 05/31/24 14:15 05/31/24 18:00 05/31/24 18:32 05/31/24 18:00
<Tatiana Jones LAB TECHNOLOGIST - Last Filed: 06/01/24 23:45>
*Pulse Oximetry
Patient hypoxic: no
*Critical Care Note
Total Time (30-74mins, 75-104mins- exclusive of procedures): Not Applicable
<Tatiana Jones NP - Last Filed: 06/01/24 23:45>
Update Note
Update Note:
To ED for eval after episode of n/v/d earlier this AM. He denies any abd. pain. He has been symptom free in the ED. Given IVf and he reports overall improvement. Will discharge home, close follow up with PCP. Given instructions on s/s to return
to ED and he is agreeable to plan.
ED Attending Note
<Annel Muñoz PA-C - Last Filed: 06/01/24 10:04>
-
Portions of this chart may have been created with voice recognition software.� Occasional wrong word or��sound alike� substitutions may have occurred due to the inherent limitations of voice recognition software.
Discharge Plan
Departure
Patient Disposition: Home (Routine Discharge)
Date of Disposition: 05/31/24
Time of Disposition: 19:16
Patient with high blood pressure during this ER visit?: No
Condition: Good
Covid-19: Not Applicable
Discharge Problem:
Nausea & vomiting, Diarrhea
Instructions: Clear Liquid Diet, Dehydration, Adult (DC), Nausea and Vomiting, Adult (DC)
Prescriptions:
No Action
simvastatin 20 MG tablet
20 mg PO DAILY
tamsulosin 0.4 mg Capsule
0.8 mg PO HS
aspirin 81 mg Tablet,Chewable
81 mg PO DAILY
hydrochlorothiazide 12.5 mg Tablet
12.5 mg PO Q48H
ferrous sulfate 325 mg (65 mg iron) Tablet
325 mg PO DAILY
amlodipine 5 mg tablet
5 mg PO BID
metoprolol succinate 25 mg Tablet Extended Release 24 Hr
12.5 mg PO DAILY
polyethylene glycol 3350 [HealthyLax] 17 gram Powder In Packet
17 g PO DAILYPRN PRN (Reason: Constipation) Qty: 0 0RF
cyanocobalamin (vitamin B-12) 1,000 mcg Tablet
1,000 mcg PO DAILY Qty: 0 0RF
prednisone 10 mg Tablet
See Rx Instructions .ROUTE .COMPLEX Qty: 45 0RF
Rx Instructions:
Take By Mouth:
50 mg daily x3 days, 40 mg daily x3 days,
30 mg daily x3 days, 20 mg daily x3 days,
10 mg daily x3 days
oxycodone 5 mg capsule
5 mg PO BID PRN (Reason: Pain) Qty: 10 0RF
Referrals:
Lane Purdy MD [Family Provider] - Tomorrow
Activity Restrictions/Additional Instructions:
Return to the emergency department immediately for any changes in/worsening of your symptoms.
Interventions
Interventions:
*Risk Screen - Suicide Last Done: 05/31/24 14:15
*General Assessment Last Done: 05/31/24 16:20
*Neglect/Abuse Screening Last Done: 05/31/24 14:15
ED- Fall Risk Assessment Last Done: 05/31/24 16:20
*ED COVID-19 Vaccine History Last Done: 05/31/24 16:20
*Nursing Disposition Last Done: 05/31/24 19:22
OW-Abjigm-Cjonmpzlca Assessment Last Done: 05/31/24 16:20
Discharge Date and Time
Discharge Date/Time: 05/31/24 19:26
Print Language: ROMANIAN
[2024-05-31 15:08] LABS: ALT (SGPT) 14 U/L (0-50); AST (SGOT) 17 U/L (17-59); Albumin 4.3 g/dl (3.5-5.0); Alkaline Phosphatase 65 U/L (38-126); Blood Urea Nitrogen 78 mg/dl (9-20); Carbon Dioxide 27 mmol/L (22-30); Chloride 102 mmol/L (98-107); Glucose 151 mg/dl (70-99); Lipase 56 U/L (23-300); Magnesium 2.4 mg/dl (1.6-2.3); Potassium 3.7 mmol/L (3.5-5.1); Sodium 139 mmol/L (135-145); Total Bilirubin 0.6 mg/dl (0.2-1.3); Total Protein 6.7 g/dl (6.3-8.2); eGFR 20.17
[2024-05-31] MEDS: ZOFRAN 4 MG IV (16:56)
[2024-05-31] MEDS: NSS 500 IV (16:57)
[2024-05-31 17:08] LABS: % Basophils 0.3 % (0-2); % Immature Granulocytes 0.5 % (0-0.5); % Lymphocytes 4.4 % (20.5-51.1); % Neutrophils 91.8 % (42.2-75.2); Absolute Lymphocytes 0.4 10^3/uL (1.2-3.4); Absolute Monocytes 0.3 10^3/uL (0.1-0.6); Absolute Neutrophils 7.9 10^3/uL (1.4-6.5); Hematocrit 39.4 % (39.0-52.0); Hemoglobin 13.3 g/dL (13.0-18.0); Mean Corp Hgb Conc. 33.8 g/dL (33.0-37.0); Mean Corpuscular Hgb 30.7 pg (27.0-31.0); Mean Platelet Volume 10.8 fL (7.4-10.4); Nucleated Red Blood Cells % 0 % (-); Platelet Count 170 10^3/uL (130-400); Red Blood Cell Count 4.33 10^6/uL (4.70-6.10); Red Cell Dist. Width 13.4 % (11.5-14.5); White Blood Cell Count 8.6 10^3/uL (4.8-10.8)
[2024-05-31 18:00] VITALS: BP 155/97
[2024-05-31 18:22] LABS: Urine Albumin 1+ (Neg - Trace); Urine Bilirubin Negative (Negative); Urine Character Clear (Clear); Urine Color Yellow; Urine Glucose Negative (Negative); Urine Ketone Negative (Negative); Urine Leukocyte Negative (Negative); Urine Nitrite Negative (Negative); Urine Occult Blood 1+ (Negative); Urine Urobilinogen Negative (Neg - 1+); Urine pH 6.5 (5.0-9.0)
[2024-05-31 18:32] VITALS: BP 155/97
[2024-05-31 18:51] LABS: Urine White Cell 0-2 /HPF (0-5)
== END 2024-05-31 19:26 | disposition home or self-care (01) ==
LOC: EMR 14:02
PROVIDERS: Emergency Medicine; Nurse Practitioner; EMERGENCY PHYSICIAN Emergency Medicine; FAMILY PHYSICIAN Internal Medicine
DX: R11.2 Nausea with vomiting, unspecified (principal); R19.7 Diarrhea, unspecified; I10 Essential (primary) hypertension; E78.00 Pure hypercholesterolemia, unspecified; G47.30 Sleep apnea, unspecified; K57.92 Diverticulitis of intestine, part unspecified, without perforation or abscess without bleeding; Z86.73 Personal history of transient ischemic attack (TIA), and cerebral infarction without residual deficits; Z87.891 Personal history of nicotine dependence; Z79.82 Long term (current) use of aspirin; Z91.030 Bee allergy status
CPT/HCPCS: 99284; 96374; 96361; 80053; 81003; 81015; 83690; 83735; 85025; 93005

== ENCOUNTER → 2024-06-22 13:07 | Outpatient (REF) | payer MEDICARE, SELFPAY | LOC: WOUND 13:07 | PROVIDERS: ATTENDING PHYSICIAN Surgery; FAMILY PHYSICIAN Internal Medicine | DX: S31.000A Unspecified open wound of lower back and pelvis without penetration into retroperitoneum, initial encounter (principal); L05.91 Pilonidal cyst without abscess; N18.4 Chronic kidney disease, stage 4 (severe); I10 Essential (primary) hypertension; G60.9 Hereditary and idiopathic neuropathy, unspecified; X58.XXXA Exposure to other specified factors, initial encounter | CPT/HCPCS: 99213 ==

== ENCOUNTER → 2024-06-25 12:39 | Outpatient (REF) | payer MEDICARE, SELFPAY ==
[2024-06-25 14:33] LABS: Protein/creatinine Ratio 0.9; Urine Protein 65 mg/dl
== END ==
LOC: REG 12:39
PROVIDERS: ATTENDING PHYSICIAN Internal Medicine; FAMILY PHYSICIAN Internal Medicine
DX: N18.4 Chronic kidney disease, stage 4 (severe) (principal)
CPT/HCPCS: 82570; 84156

== ENCOUNTER 2024-07-12 10:52 | Outpatient (RCR) | payer MEDICARE, SELFPAY | END 2024-07-12 23:59 | disposition home or self-care (01) | LOC: ROT 10:52 | PROVIDERS: ATTENDING PHYSICIAN Internal Medicine | DX: Z47.89 Encounter for other orthopedic aftercare (principal); R26.89 Other abnormalities of gait and mobility; R47.89 Other speech disturbances; M50.00 Cervical disc disorder with myelopathy, unspecified cervical region; M48.02 Spinal stenosis, cervical region; Z73.6 Limitation of activities due to disability; M47.12 Other spondylosis with myelopathy, cervical region; M62.81 Muscle weakness (generalized); M43.22 Fusion of spine, cervical region; R29.6 Repeated falls; R26.2 Difficulty in walking, not elsewhere classified | CPT/HCPCS: 97110; 97112; 97116; 97530; 97535 ==

== ENCOUNTER 2024-07-19 10:46 | Outpatient (RCR) | payer MEDICARE, SELFPAY | END 2024-07-19 12:54 | disposition home or self-care (01) | LOC: ROT 10:46 | PROVIDERS: ATTENDING PHYSICIAN Internal Medicine | DX: Z47.89 Encounter for other orthopedic aftercare (principal); R26.89 Other abnormalities of gait and mobility; M48.02 Spinal stenosis, cervical region; M50.00 Cervical disc disorder with myelopathy, unspecified cervical region; Z73.6 Limitation of activities due to disability; R26.2 Difficulty in walking, not elsewhere classified; M62.81 Muscle weakness (generalized); M47.12 Other spondylosis with myelopathy, cervical region; M43.22 Fusion of spine, cervical region; R47.89 Other speech disturbances; R29.6 Repeated falls | CPT/HCPCS: 97110; 97112; 97530; 97535 ==

== ENCOUNTER → 2024-08-06 08:53 | Outpatient (REF) | payer MEDICARE, SELFPAY ==
[2024-08-06 10:36] LABS: Albumin 4.4 g/dl (3.5-5.0); Blood Urea Nitrogen 60 mg/dl (9-20); Calcium 10.3 mg/dl (8.4-10.2); Carbon Dioxide 24 mmol/L (22-30); Chloride 105 mmol/L (98-107); Glucose 95 mg/dl (70-99); Potassium 3.6 mmol/L (3.5-5.1); Sodium 139 mmol/L (135-145)
== END ==
LOC: REG 08:53
PROVIDERS: ATTENDING PHYSICIAN Internal Medicine; FAMILY PHYSICIAN Internal Medicine
DX: N18.4 Chronic kidney disease, stage 4 (severe) (principal)
CPT/HCPCS: 36415; 80069; 83970

== ENCOUNTER → 2024-08-20 12:38 | Outpatient (REF) | payer MEDICARE, SELFPAY | LOC: RCS 12:38 | PROVIDERS: ATTENDING PHYSICIAN Internal Medicine | DX: R00.1 Bradycardia, unspecified (principal) | CPT/HCPCS: 93225; 93226 ==

== ENCOUNTER → 2024-08-24 13:32 | Outpatient (REF) | payer MEDICARE, SELFPAY | LOC: RAD 13:32 | PROVIDERS: ATTENDING PHYSICIAN Internal Medicine | DX: M79.89 Other specified soft tissue disorders (principal); R22.41 Localized swelling, mass and lump, right lower limb | CPT/HCPCS: 93971 ==

== ENCOUNTER → 2024-08-27 12:29 | Outpatient (REF) | payer MEDICARE, SELFPAY ==
[2024-08-27 16:49] LABS: Urine Albumin 3+ (Neg - Trace); Urine Bilirubin Negative (Negative); Urine Character Clear (Clear); Urine Color Yellow; Urine Glucose 2+ (Negative); Urine Ketone Negative (Negative); Urine Leukocyte 3+ (Negative); Urine Nitrite Negative (Negative); Urine Occult Blood 4+ (Negative); Urine Urobilinogen 1+ (Neg - 1+)
[2024-08-27 17:00] LABS: Urine Squamous Cell 0-2 /LPF (Few)
[2024-08-27 17:01] LABS: Urine Bacteria Many (Negative); Urine Red Blood Cell 90-100 /HPF (0-2); Urine White Cell 26-30 /HPF (0-5)
== END ==
LOC: CLAB 12:29
PROVIDERS: ATTENDING PHYSICIAN Internal Medicine
DX: R30.0 Dysuria (principal)
CPT/HCPCS: 81003; 81015; 87077; 87086; 87186

== ENCOUNTER → 2024-09-10 08:49 | Outpatient (REF) | payer MEDICARE, SELFPAY ==
[2024-09-10 10:10] LABS: Urine Albumin 2+ (Neg - Trace); Urine Bilirubin Negative (Negative); Urine Character Clear (Clear); Urine Color Yellow; Urine Glucose Negative (Negative); Urine Ketone Negative (Negative); Urine Leukocyte Negative (Negative); Urine Nitrite Negative (Negative); Urine Occult Blood 2+ (Negative); Urine Urobilinogen Negative (Neg - 1+)
[2024-09-10 10:43] LABS: Urine Amorphous Seen; Urine Hyaline Cast 0-2 /LPF (0-2); Urine Urothelial Cell 0-2 /LPF (FEW)
[2024-09-10 10:44] LABS: Urine Red Blood Cell 0-2 /HPF (0-2); Urine White Cell 0-2 /HPF (0-5)
[2024-09-10 10:47] LABS: Albumin 4.3 g/dl (3.5-5.0); Blood Urea Nitrogen 71 mg/dl (9-20); Calcium 10.4 mg/dl (8.4-10.2); Carbon Dioxide 29 mmol/L (22-30); Chloride 104 mmol/L (98-107); Glucose 93 mg/dl (70-99); Phosphorus 4.1 mg/dl (2.5-4.5); Potassium 4.1 mmol/L (3.5-5.1); Sodium 143 mmol/L (135-145); eGFR 19.25
[2024-09-10 10:57] LABS: Protein/creatinine Ratio 0.8; Urine Protein 52 mg/dl
== END ==
LOC: REG 08:49
PROVIDERS: ATTENDING PHYSICIAN Internal Medicine; FAMILY PHYSICIAN Internal Medicine
DX: D64.9 Anemia, unspecified (principal); E11.65 Type 2 diabetes mellitus with hyperglycemia; N18.4 Chronic kidney disease, stage 4 (severe); R00.1 Bradycardia, unspecified; N17.9 Acute kidney failure, unspecified
CPT/HCPCS: 36415; 80069; 81003; 81015; 82570; 84156

== ENCOUNTER → 2024-10-03 13:18 | Outpatient (REF) | payer MEDICARE, SELFPAY | LOC: RAD 13:18 | PROVIDERS: ATTENDING PHYSICIAN Internal Medicine; FAMILY PHYSICIAN Internal Medicine | DX: N17.9 Acute kidney failure, unspecified (principal) | CPT/HCPCS: 76770 ==

== ENCOUNTER → 2024-11-07 07:35 | Outpatient (REF) | payer MEDICARE, SELFPAY ==
[2024-11-07 09:27] LABS: % Basophils 0.9 % (0-2); % Eosinophils 4.5 % (0-6); % Immature Granulocytes 0.2 % (0-0.5); % Lymphocytes 26.3 % (20.5-51.1); % Monocytes 6.1 % (1.7-9.3); Absolute Basophils 0.1 10^3/uL (0-0.2); Absolute Eosinophils 0.4 10^3/uL (0-0.7); Absolute Lymphocytes 2.2 10^3/uL (1.2-3.4); Absolute Monocytes 0.5 10^3/uL (0.1-0.6); Absolute Neutrophils 5.3 10^3/uL (1.4-6.5); Hematocrit 35.5 % (39.0-52.0); Hemoglobin 11.9 g/dL (13.0-18.0); Mean Corp Hgb Conc. 33.5 g/dL (33.0-37.0); Mean Corpuscular Hgb 30.9 pg (27.0-31.0); Mean Corpuscular Volume 92.2 fL (80.0-94.0); Mean Platelet Volume 11.1 fL (7.4-10.4); Nucleated Red Blood Cells % 0 % (-); Platelet Count 210 10^3/uL (130-400); Red Blood Cell Count 3.85 10^6/uL (4.70-6.10); Red Cell Dist. Width 13.5 % (11.5-14.5); White Blood Cell Count 8.5 10^3/uL (4.8-10.8)
[2024-11-07 10:11] LABS: Urine Albumin 2+ (Neg - Trace); Urine Bilirubin Negative (Negative); Urine Character Clear (Clear); Urine Color Yellow; Urine Glucose Negative (Negative); Urine Ketone Negative (Negative); Urine Leukocyte Negative (Negative); Urine Nitrite Negative (Negative); Urine Occult Blood 3+ (Negative); Urine Urobilinogen Negative (Neg - 1+)
[2024-11-07 10:26] LABS: ALT (SGPT) 13 U/L (0-50); AST (SGOT) 17 U/L (17-59); Albumin 4.4 g/dl (3.5-5.0); Alkaline Phosphatase 86 U/L (38-126); Blood Urea Nitrogen 60 mg/dl (9-20); Calcium 9.6 mg/dl (8.4-10.2); Carbon Dioxide 27 mmol/L (22-30); Chloride 105 mmol/L (98-107); Glucose 99 mg/dl (70-99); HDL Cholesterol 68 mg/dl; LDL Cholesterol, Calculated 52 mg/dl; Phosphorus 4.8 mg/dl (2.5-4.5); Potassium 3.6 mmol/L (3.5-5.1); Sodium 142 mmol/L (135-145); Total Bilirubin 0.8 mg/dl (0.2-1.3); Total Cholesterol 135 mg/dl (50-199); Total Protein 7.1 g/dl (6.3-8.2); Triglyceride 77 mg/dl (10-149); Very Low Density Lipoprotein 15 mg/dl (0-30); eGFR 17.82
[2024-11-07 10:38] LABS: Urine Bacteria Few (Negative); Urine Hyaline Cast 0-2 /LPF (0-2); Urine Red Blood Cell 0-2 /HPF (0-2); Urine White Cell 0-2 /HPF (0-5)
== END ==
LOC: REG 07:35
PROVIDERS: ATTENDING PHYSICIAN Internal Medicine; FAMILY PHYSICIAN Internal Medicine
DX: N18.4 Chronic kidney disease, stage 4 (severe) (principal); E78.00 Pure hypercholesterolemia, unspecified; G60.9 Hereditary and idiopathic neuropathy, unspecified; E21.3 Hyperparathyroidism, unspecified; I10 Essential (primary) hypertension; N17.9 Acute kidney failure, unspecified
CPT/HCPCS: 36415; 80053; 80061; 81003; 81015; 84100; 85025

== ENCOUNTER → 2024-11-12 08:37 | Outpatient (REF) | payer MEDICARE, SELFPAY ==
[2024-11-12 10:45] LABS: Vitamin D, 25-OH*** 37.5 ng/mL (30-80)
[2024-11-12 11:26] LABS: Calcium 9.7 mg/dl (8.4-10.2)
[2024-11-13 10:20] LABS: Intact PTH 812.1 pg/ml (13.6-85.8)
[2024-11-14 21:23] LABS: Vitamin D 1,25 Dihydroxy 11.5 pg/mL (19.9-79.3)
== END ==
LOC: REG 08:37
PROVIDERS: ATTENDING PHYSICIAN Internal Medicine; FAMILY PHYSICIAN Internal Medicine
DX: N17.9 Acute kidney failure, unspecified (principal); E21.3 Hyperparathyroidism, unspecified
CPT/HCPCS: 36415; 82306; 82652; 83970

== ENCOUNTER → 2024-11-21 09:26 | Outpatient (REF) | payer MEDICARE, SELFPAY ==
[2024-11-21 11:09] LABS: Hemoglobin 11.3 g/dL (13.0-18.0); Mean Corp Hgb Conc. 33.2 g/dL (33.0-37.0); Mean Corpuscular Volume 93.4 fL (80.0-94.0); Mean Platelet Volume 11.3 fL (7.4-10.4); Platelet Count 183 10^3/uL (130-400); Red Blood Cell Count 3.64 10^6/uL (4.70-6.10); Red Cell Dist. Width 13.9 % (11.5-14.5); White Blood Cell Count 7.7 10^3/uL (4.8-10.8)
[2024-11-21 11:51] LABS: Blood Urea Nitrogen 58 mg/dl (9-20); Calcium 9.2 mg/dl (8.4-10.2); Carbon Dioxide 26 mmol/L (22-30); Chloride 109 mmol/L (98-107); Glucose 90 mg/dl (70-99); Potassium 3.6 mmol/L (3.5-5.1); Sodium 142 mmol/L (135-145); eGFR 20.05
== END ==
LOC: SDSPAT 09:26
PROVIDERS: ATTENDING PHYSICIAN Specialist; FAMILY PHYSICIAN Internal Medicine
DX: Z01.818 Encounter for other preprocedural examination (principal)
CPT/HCPCS: 36415; 80048; 85027

== ENCOUNTER 2024-11-22 06:26 | Day surgery (SDC) | payer MEDICARE, SELFPAY ==
[2024-11-21 13:27] VITALS: BMI 19.4
[2024-11-22] VITALS (13 sets, daily range): BP systolic 114–149; BP diastolic 52–85; BMI 19.4
[2024-11-22] MEDS: Pyridium 200 MG PO (07:42)
[2024-11-22] MEDS: NORMOSOL-R/PLASMALYTE-A 1000 IV (08:00)
--- NOTE | 2024-11-22 08:03 | PTCARENOTE ---
Dr. Lunsford made aware of BUN and Creatine results. He did want Normosol hung instead of NSS. No further orders.
[2024-11-22] MEDS: SYRINGE NON-PUMP 50 ML IRRIG (09:43)
[2024-11-22] MEDS: SYRINGE NON-PUMP 50 MG IRRIG (09:43)
[2024-11-22] MEDS: DILAUDID 0.25 MG IV (10:01)
[2024-11-22] MEDS: ZOFRAN 4 MG IV (10:08)
[2024-11-22] MEDS: ROXICODONE 5 MG PO (16:55)
[2024-11-22] MEDS: TYLENOL 650 MG PO (16:55)
== END 2024-11-22 17:58 | disposition home or self-care (01) ==
LOC: SDS 06:26
PROVIDERS: ATTENDING PHYSICIAN Specialist
DX: D49.4 Neoplasm of unspecified behavior of bladder (principal); C67.2 Malignant neoplasm of lateral wall of bladder
CPT/HCPCS: 52234; 88307; J9201

== ENCOUNTER → 2024-12-12 09:02 | Outpatient (REF) | payer MEDICARE, SELFPAY ==
[2024-12-12 11:12] LABS: Albumin 4.0 g/dl (3.5-5.0); Blood Urea Nitrogen 51 mg/dl (9-20); Calcium 8.9 mg/dl (8.4-10.2); Carbon Dioxide 25 mmol/L (22-30); Chloride 108 mmol/L (98-107); Glucose 87 mg/dl (70-99); Potassium 4.1 mmol/L (3.5-5.1); Sodium 140 mmol/L (135-145); eGFR 18.51
== END ==
LOC: REG 09:02
PROVIDERS: ATTENDING PHYSICIAN Internal Medicine; FAMILY PHYSICIAN Internal Medicine
DX: E78.00 Pure hypercholesterolemia, unspecified (principal); I10 Essential (primary) hypertension; N18.4 Chronic kidney disease, stage 4 (severe); N17.9 Acute kidney failure, unspecified
CPT/HCPCS: 80069; 83970